=== PATIENT | female | born 1965 | race American Indian/Alaskan Native ===

== ENCOUNTER 2020-01-13 08:54 | Inpatient (IN) | payer MEDICARE, MEDICAID, SELFPAY ==
[2020-01-13] VITALS (8 sets, daily range): BP systolic 139–168; BP diastolic 78–102; PULSE 84–98; RESP 16–18; TEMP 36.4–36.7; O2SAT 94–99; BMI 32.2; BMI 30.4
[2020-01-13 09:10] LABS: Glucose, Whole Blood 313 mg/dL (60-115)
--- NOTE | 2020-01-13 09:18 | XR_ITS ---
EXAMINATION: XR CHEST CLINICAL INFORMATION: Left-sided weakness COMPARISON: 12/11/2016 TECHNIQUE: Frontal view of the chest was obtained. FINDINGS: The cardiomediastinal silhouette is within normal limits. Low lung volumes.. There is no focal consolidation, edema, or effusion. No pneumothorax. No acute osseous abnormality. IMPRESSION: Low lung volumes. No evidence of acute process.
--- NOTE | 2020-01-13 09:18 | MR_ITS ---
EXAMINATION: UNENHANCED MRI OF THE BRAIN. CLINICAL INFORMATION: Left-sided weakness. COMPARISON: CT head 04/25/2016. CT CT head 01/13/2020. TECHNIQUE: Routine unenhanced MRI of the brain. FINDINGS: An 8 mm focus with abnormal decreased diffusion is present posteriorly within the right boo radiata (series 4 image 20). This finding is suspicious for an acute infarct. A 7 mm focus with intrinsic high T1-weighted signal intensity, T2 prolongation and associated peripheral low signal intensity on susceptibility weighted images processed present within the right insular lobe within the posterior right external capsule and adjacent putamen corresponding to an area of vague punctate and curvilinear hyperdensity on the comparison CT of the head. No edema is present in the adjacent brain parenchyma. FLAIR and susceptibility weighted images demonstrate findings suspicious for mild focal subarachnoid hemorrhage and possible adjacent petechial hemorrhage within the posterior right middle frontal lobe (series 8 image 15) along the inferior margin of the lesion identified above suspicious for acute infarct over an 8 mm diameter region. The apparent focal subarachnoid hemorrhage is discontiguous with the 7 mm lesion identified within the right insular lobe but comes within approximately one CM of this region. Susceptibility weighted images demonstrate punctate low signal foci within the parasagittal right parieto-occipital and left parieto-occipital regions (series 5 image 14). Vague rounded low signal focus is present in the peripheral left sublenticular region (series 5 image 13). Nearly confluent patchy T2 hyperintensities are present elsewhere in the supratentorial periventricular white matter. Normal flow-related signal intensity is identified in the major intracranial vessels and dural sinuses. Orbits and globes are normal in appearance. No marrow signal abnormalities are identified. IMPRESSION: 1. 8 mm acute infarct within the posterior right boo radiata. Mild adjacent focal subarachnoid and possible punctate petechial hemorrhage is present and may be secondary to the acute infarct. 2. 7 mm lesion within the right insular lobe with evidence of subacute and possible acute blood products. This finding may represent a cavernous angioma. The acute subarachnoid hemorrhage identified in impression point #1 is discontiguous from this lesion. The differential diagnosis of this lesion include a subacute infarcts with associated subacute blood products. 3. Moderate white matter chronic small vessel ischemic disease and evidence of a small number of punctate foci of chronic hemorrhage elsewhere within the brain. Overall, findings may represent hypertensive related chronic small vessel ischemic disease. This critical result was discussed with Man Mahan MD by telephone at 01/13/2020 11:55 AM and it was ascertained that the content and urgency of the report was understood at the time of direct communication.
--- NOTE | 2020-01-13 09:19 | CT_ITS ---
EXAMINATION: CT HEAD WITHOUT CONTRAST CLINICAL INFORMATION: Left-sided weakness COMPARISON: April 25, 2016 TECHNIQUE: Contiguous axial imaging was performed from the skull base to vertex without intravenous administration of contrast. This CT examination was performed using dose optimization techniques as appropriate, variously including the following: *Automated exposure control *Adjustment of mA and/or kV according to patient size (this includes techniques or standardized protocols for targeted exams where dose is matched to indication/reason for exam; i.e. extremities or head) *Use of iterative reconstruction technique DLP: 483 mGy-cm FINDINGS: There is a region of heterogeneous density portion of which is of diminished density more anteriorly and posteriorly of somewhat more increased density about the posterior aspect mainly white matter of the right frontal lobe extending back to the precentral gyrus. There are a few foci of increased density which may represent petechial hemorrhage. No significant mass effect is appreciated and no midline structure shift is seen. There is some stable periventricular white matter low density as well as what appear to be a stable small right frontal infarct compared to study of April 25, 2016. Cavum septum vergae is noted. Remainder of the ventricular system, sulci, and cisterns appear unremarkable. No abnormal extra-axial fluid collection. The mastoid air cells and visualized portions of the paranasal sinuses are well aerated. IMPRESSION: Right frontal majority white matter abnormality with question of petechial hemorrhage which could represent an involving infarct and somewhat less likely could represent a mass. MRI would be of help in further evaluation. This critical result was discussed with Dr. Mahan at 10:10 AM on January 13, 2020 and it was ascertained that the content and urgency of the report was understood at the time of direct communication.
--- NOTE | 2020-01-13 09:20 | CT_ITS ---
EXAMINATION: CT CERVICAL SPINE WITHOUT CONTRAST CLINICAL INFORMATION: Left-sided weakness. COMPARISON: None TECHNIQUE: Axial imaging. Sagittal and coronal reconstructions. This CT examination was performed using dose optimization techniques as appropriate, variously including the following: *Automated exposure control *Adjustment of mA and/or kV according to patient size (this includes techniques or standardized protocols for targeted exams where dose is matched to indication/reason for exam; i.e. extremities or head) *Use of iterative reconstruction technique DLP: 483 mGy-cm FINDINGS: Normal alignment. Craniocervical, atlantoaxial alignment is maintained. Predens space is maintained. Prevertebral soft tissues within normal limits. Vertebral body heights are maintained. No evidence of acute fracture or compression deformity. Disc spaces are maintained. There is C2-C3 bilateral facet joint arthritis, more prominent on the right. No suspicious findings in the thyroid gland. Subcentimeter lymph nodes in the neck. Lung apices are clear. IMPRESSION: 1. No radiographic evidence of acute fracture. 2. Bilateral C2-C3 facet arthritis, more prominent on the right.
--- NOTE | 2020-01-13 09:21 | ECG_ITS ---
Test Reason : WEAKNESS Blood Pressure : / mmHG Vent. Rate : 080 BPM Atrial Rate : 080 BPM P-R Int : 164 ms QRS Dur : 086 ms QT Int : 386 ms P-R-T Axes : 009 -23 031 degrees QTc Int : 445 ms Normal sinus rhythm Left axis deviation Possible Anterior infarct (cited on or before 11-DEC-2016) Abnormal ECG When compared with ECG of 11-DEC-2016 01:47, QRS axis has changed Referred By: Man Mahan Electronically Signed By:ADONAY ROBERTS MD
--- NOTE | 2020-01-13 09:22 | ED_ITS ---
HPI - Weakness General Chief complaint: Weakness Stated complaint: l side weakness Time Seen by Provider: 01/13/20 09:18 Source: patient and sign language interpreter Mode of arrival: ambulatory Limitations: other ( poor historian.) History of Present Illness HPI Narrative: This is a 54-year-old female Upper Sorbian speaker, presented to the emergency department when she woke up this morning at 07:00 o'clock felt whole left side of her body is numb and weak, patient fell of the bed when she tried to get up, and now she complains of neck pain. Patient emergency department is poor historian appear very anxious despite using sign language interpreter service and efforts from the examiner to ask simple questions. MD Complaint: focal weakness ( Left whole body) and tingling ( the whole left side.) Onset (ago): unknown ( Went to bed okay, woke up this morning with the symptoms.) Duration: constant Location: LUE and LLE Migration: none Severity: mild Quality: tingling Relieving factors: none Exacerbating factors: none Related Data Allergies Allergy/AdvReac Type Severity Reaction Status Date / Time No Known Allergies Allergy Mild NOT Unverified 12/14/19 16:11 APPLICABLE Review of Systems Review of Systems: Yes all other systems are reviewed and are negative Constitutional: Constitutional: Reports other ( Anxious.) Eyes: Eyes: Reports as per HPI ENT: Reports system reviewed and no additional complaints, except as documented Cardiovascular: Cardiovascular: Reports no additional cardiovascular complaints Respiratory: Respiratory: Reports no additional respiratory complaints Gastrointestinal: Gastrointestinal: Reports no additional gastrointestinal complaints Musculoskeletal: Musculoskeletal: Reports muscle weakness ( Left-sided, patient fell when she is trying to get out of bed because she) Neurologic: Reports system reviewed and no additional complaints, except as documented and Reports Abnormal speech present Psychiatric: Psychiatric: Reports no additional psychiatric complaints [facility] Past Medical History Medical History Diabetes mellitus, insulin dependent (IDDM), controlled [place] (hard of hearing) Hypertension Social History Social History Alcohol intake: unknown Smoking Status: Unknown if ever smoked Use of substances other than those prescribed or required for medical reasons: No Advance Directives: No Advance Directives Information Provided: Yes Physical Exam Vital Signs: Vital Signs: Vital Signs Temp Pulse Resp BP Pulse Ox 01/13/20 14:00 98 17 154/87 H 95 01/13/20 13:27 97.6 F 90 18 139/83 96 01/13/20 12:26 91 18 158/92 H 98 01/13/20 11:32 89 16 159/78 H 95 01/13/20 09:01 97.6 F 92 16 168/89 H 94 Body Mass Index 32.2 Const: General: cooperative Orientation/consciousness: oriented to person, oriented to place and oriented to time HENMT: Head: Yes normal to inspection and Yes No palpable skull fracture present Ears: hearing grossly normal bilaterally General nose exam: Normal external nose present Face and sinus: Yes normal facial exam and Yes other ( No facial droop is appreciated.) Mouth: Normal oral and palatal mucosa present Eyes: General: appearance normal, both eyes and all related structures Eyelids: Yes eyelids normal EOM: EOMs intact bilaterally Neck: Neck: Yes normal visual inspection and Yes full ROM Chest: Chest palpation & inspection: normal inspection of the chest Resp: Effort & Inspection: normal respiratory effort Cardio: Jugular venous distension: no JVD Rate: regular rate Rhythm: regular rhythm GI: Inspection: Yes normal to inspection Percussion: Yes normal to percussion Skin: General skin exam: no rashes or lesions noted Neuro: General: oriented to person, oriented to place, oriented to time and Unable to assess gait Cranial nerves: Yes CN's II-XII intact bilaterally and Yes Facial sensation intact/muscles of mastication intact Cognition (Neuro): normal cognition Speech: Abnormal speech present Gait exam (Neuro): Unable to assess gait Motor exam (neuro): Pronator motor function present ( mild left pronator drift.) Sensory Exam: Sensory deficit (Neuro) ( decreased light touch sensation to the left thigh and left lower.) Coordination: [id number] test normal Comatose Patient: corneal reflex present Course Course Course Narrative: 54 years old female appear very anxious patient is poor historian, patient woke up this morning with left side numbness and weakness as a result patient fell after was trying to get out of bed. Due to patient anxiety and poor historian unable to fully evaluate patient for acute stroke, unknown onset of symptoms (patient was sleeping ) MDM - Weakness MDM Narrative Medical decision making narrative: 54 years old female history of diabetes presented with left-sided weakness, unclear onset of symptoms, patient showed small subarachnoid hemorrhage on CT /MRI patient is not candidate for tPA. MRI/CT consistent with right boo radiata acute infarction. as a spiculated by Dr. Juan that patient woke up with left-sided weakness patient stated that she fell when she woke up probably secondary to the weakness then she developed the small subarachnoid hemorrhage CT head is and C-spine unremarkable for fracture. CTA head and neck unremarkable for dissection/aneurysm. The case discussed with Dr. Juan to admit the patient for observation, no NSAIDs because of the bleed. Lab Data Result diagrams: 01/13/20 09:23 01/13/20 09:23 Labs: Lab Results 01/13/20 01/13/20 01/13/20 Range/Units 09:07 09:23 09:23 WBC 8.4 (4.8-10.8) X10*3/uL RBC 5.18 (4.20-5.50) X10*6/uL Hgb 15.7 (12.0-16.0) g/dl Hct 47.4 H (37-47) % MCV 91.5 (80-98) fL MCH 30.3 (27.0-33.0) pg MCHC 33.1 (31.0-35.0) g/dl RDW 11.7 (11.0-16.0) % Plt Count 206 (160-400) X10*3/uL MPV 10.5 (9.4-12.3) fL Absolute Nucleated RBC 0.000 (0.0-0.012) X10*3/uL Nucleated RBC % (auto) 0.0 (0.0-0.2) /100WBC PT (10.8-13.0) SEC INR (0.9-1.1) APTT (24.1-38.0) SEC Sodium 134 L (135-145) mmol/L Potassium 4.2 (3.3-5.1) mmol/l Chloride 97 (96-108) mmol/L Carbon Dioxide 25 (22-29) mmol/L Anion Gap 16 (12-20) BUN 13 (9-16) mg/dL Creatinine 0.78 (0.5-1.4) mg/dL Estim Creat Clear Calc 80.8 Estimated GFR > 60 POC Glucose 313 H (60-115) mg/dL Random Glucose 371 H* (60-115) mg/dL Calcium 8.9 (8.4-10.2) mg/dL Total Bilirubin (0.0-1.0) mg/dL Direct Bilirubin (0.0-0.5) mg/dL AST (5-31) U/L ALT (0-31) U/L Alkaline Phosphatase (39-117) U/L Troponin I High Sens (<3.5-17.0) ng/L Total Protein (6.5-8.0) g/dL Albumin (3.5-5.0) g/dL Lipase (8-78) U/L Urine Color Urine Appearance Urine pH (5.0-8.0) Ur Specific [place] (1.005-1.025) Urine Protein (NEG-TRACE) MG/DL Urine Glucose (UA) (NEG) MG/DL Urine Ketones (NEG) MG/DL Urine Blood (NEG) Urine Nitrite (NEG) Ur Leukocyte Esterase (NEG) Urine RBC (0) /HPF Urine WBC (0-4) /HPF Ur Squamous Epith Cells /LPF Urine Bacteria /LPF 01/13/20 01/13/20 01/13/20 Range/Units 09:23 09:23 09:23 WBC (4.8-10.8) X10*3/uL RBC (4.20-5.50) X10*6/uL Hgb (12.0-16.0) g/dl Hct (37-47) % MCV (80-98) fL MCH (27.0-33.0) pg MCHC (31.0-35.0) g/dl RDW (11.0-16.0) % Plt Count (160-400) X10*3/uL MPV (9.4-12.3) fL Absolute Nucleated RBC (0.0-0.012) X10*3/uL Nucleated RBC % (auto) (0.0-0.2) /100WBC PT 12.9 (10.8-13.0) SEC INR 1.1 (0.9-1.1) APTT 40.9 H (24.1-38.0) SEC Sodium (135-145) mmol/L Potassium (3.3-5.1) mmol/l Chloride (96-108) mmol/L Carbon Dioxide (22-29) mmol/L Anion Gap (12-20) BUN (9-16) mg/dL Creatinine (0.5-1.4) mg/dL Estim Creat Clear Calc Estimated GFR POC Glucose (60-115) mg/dL Random Glucose (60-115) mg/dL Calcium (8.4-10.2) mg/dL Total Bilirubin 2.2 H (0.0-1.0) mg/dL Direct Bilirubin 0.6 H (0.0-0.5) mg/dL AST 53 H (5-31) U/L ALT 71 H (0-31) U/L Alkaline Phosphatase 108 (39-117) U/L Troponin I High Sens 3.9 (<3.5-17.0) ng/L Total Protein 7.3 (6.5-8.0) g/dL Albumin 4.0 (3.5-5.0) g/dL Lipase 12 (8-78) U/L Urine Color Urine Appearance Urine pH (5.0-8.0) Ur Specific [place] (1.005-1.025) Urine Protein (NEG-TRACE) MG/DL Urine Glucose (UA) (NEG) MG/DL Urine Ketones (NEG) MG/DL Urine Blood (NEG) Urine Nitrite (NEG) Ur Leukocyte Esterase (NEG) Urine RBC (0) /HPF Urine WBC (0-4) /HPF Ur Squamous Epith Cells /LPF Urine Bacteria /LPF 01/13/20 Range/Units 10:33 WBC (4.8-10.8) X10*3/uL RBC (4.20-5.50) X10*6/uL Hgb (12.0-16.0) g/dl Hct (37-47) % MCV (80-98) fL MCH (27.0-33.0) pg MCHC (31.0-35.0) g/dl RDW (11.0-16.0) % Plt Count (160-400) X10*3/uL MPV (9.4-12.3) fL Absolute Nucleated RBC (0.0-0.012) X10*3/uL Nucleated RBC % (auto) (0.0-0.2) /100WBC PT (10.8-13.0) SEC INR (0.9-1.1) APTT (24.1-38.0) SEC Sodium (135-145) mmol/L Potassium (3.3-5.1) mmol/l Chloride (96-108) mmol/L Carbon Dioxide (22-29) mmol/L Anion Gap (12-20) BUN (9-16) mg/dL Creatinine (0.5-1.4) mg/dL Estim Creat Clear Calc Estimated GFR POC Glucose (60-115) mg/dL Random Glucose (60-115) mg/dL Calcium (8.4-10.2) mg/dL Total Bilirubin (0.0-1.0) mg/dL Direct Bilirubin (0.0-0.5) mg/dL AST (5-31) U/L ALT (0-31) U/L Alkaline Phosphatase (39-117) U/L Troponin I High Sens (<3.5-17.0) ng/L Total Protein (6.5-8.0) g/dL Albumin (3.5-5.0) g/dL Lipase (8-78) U/L Urine Color YELLOW Urine Appearance CLOUDY Urine pH 6.0 (5.0-8.0) Ur Specific [place] 1.015 (1.005-1.025) Urine Protein NEG (NEG-TRACE) MG/DL Urine Glucose (UA) 500 H (NEG) MG/DL Urine Ketones 5 (NEG) MG/DL Urine Blood NEG (NEG) Urine Nitrite POS H (NEG) Ur Leukocyte Esterase NEG (NEG) Urine RBC 0 (0) /HPF Urine WBC 5-9 H (0-4) /HPF Ur Squamous Epith Cells 2+ /LPF Urine Bacteria 4+ /LPF ECG Data Attestation: I personally reviewed and interpreted this ECG as follows: Interpretation: Normal sinus rhythm at 80 beats per minutes, left axis deviation, no ST- T ischemic change. Scores AUDIT-C 3. How often do you have six or more drinks on one occasion?: Daily or almost daily AUDIT-C Alcohol total score: 4 Additional Scores nihs score: Score: NIHS score is 2 Critical Care Time Critical Care Time Total Critical Care Time: 60 Attestation: Patient required 60 minutes of critical care level at bedside, continuous vital signs monitoring, reviewing CTs/MRI, discussing the case with Neurology, discuss the case with the family and the patient. Discharge Plan Discharge Clinical Impression: Stroke, Subarachnoid hemorrhage following injury Patient Disposition: Admitted As Inpatient
[2020-01-13 09:32] LABS: Hematocrit 47.4 % (37-47); Hemoglobin 15.7 g/dl (12.0-16.0); Mean Corpuscular HGB Conc 33.1 g/dl (31.0-35.0); Mean Corpuscular Hemoglobin 30.3 pg (27.0-33.0); Mean Corpuscular Volume 91.5 fL (80-98); Mean Platelet Volume 10.5 fL (9.4-12.3); Platelet Count 206 X10*3/uL (160-400); Red Blood Count 5.18 X10*6/uL (4.20-5.50); Red Cell Distribution Width 11.7 % (11.0-16.0); White Blood Count 8.4 X10*3/uL (4.8-10.8)
[2020-01-13 09:37] LABS: INTERNATIONAL NORM RATIO 1.1 (0.9-1.1); Prothrombin Time 12.9 SEC (10.8-13.0)
[2020-01-13 09:39] LABS: Partial Thromboplastin Time 40.9 SEC (24.1-38.0)
[2020-01-13] MEDS: LORazepam 1 MG TABLET PO (09:39)
[2020-01-13 10:12] LABS: Alanine Aminotransferase 71 U/L (0-31); Alkaline Phosphatase 108 U/L (39-117); Aspartate Amino Transferase 53 U/L (5-31); Bilirubin Direct 0.6 mg/dL (0.0-0.5); Bilirubin Total 2.2 mg/dL (0.0-1.0); Lipase 12 U/L (8-78); Total Protein 7.3 g/dL (6.5-8.0); Troponin-I High Sensitivity 3.9 ng/L (<3.5-17.0)
[2020-01-13 10:39] LABS: Glucose Urine UA 500 MG/DL (NEG); Leukocyte Esterase Urine NEG (NEG); Nitrite Urine POS (NEG); Specific Gravity - Urine 1.015 (1.005-1.025); Urine Blood NEG (NEG); Urine Ketones 5 MG/DL (NEG); Urine Protein NEG (NEG-TRACE)
[2020-01-13 10:41] LABS: Appearance Urine CLOUDY; Color Urine YELLOW
--- NOTE | 2020-01-13 10:50 | PC.NURSE ---
per md patient is ok to go off floor at mri without monitor.
[2020-01-13 10:52] LABS: Bacteria Urine 4+ /LPF; RBC Urine 0 /HPF (0); Squamous Epithelial Cell Urine 2+ /LPF
[2020-01-13 11:49] LABS: Anion Gap 16 (12-20); Blood Urea Nitrogen 13 mg/dL (9-16); Calcium 8.9 mg/dL (8.4-10.2); Carbon Dioxide 25 mmol/L (22-29); Chloride 97 mmol/L (96-108); Creatinine Clr Calc Pharmacy 80.8; Estimated Glomerular Filt Rate > 60; Glucose Random 371 mg/dL (60-115); Potassium 4.2 mmol/l (3.3-5.1); Sodium 134 mmol/L (135-145)
[2020-01-13] MEDS: Morphine Sulfate 2 MG/ML CARTRIDGE 1 MG IVPUSH (12:30)
--- NOTE | 2020-01-13 13:17 | CT_ITS ---
EXAMINATION: CT ANGIOGRAM NECK WITH CONTRAST CT ANGIOGRAM BRAIN WITH CONTRAST CLINICAL INFORMATION: Stroke like symptoms. Neck pain. Rule out vertebral artery dissection. COMPARISON: Head CT and brain MRI performed earlier the same day. TECHNIQUE: Test bolus sequences followed by intravenous administration 70 mL of Omnipaque 350. Helical imaging was performed in the axial plane from the thoracic inlet to the skull vertex. Delayed postcontrast imaging of the head was also performed. The data was processed at the radiologic technologist workstation for generation of MIP sequences. Angled MIPs and volume rendered reformatted images were also generated at an offline 3D workstation under concurrent supervision. Stenoses are assessed in accordance with NASCET criteria unless otherwise indicated. This CT examination was performed using dose optimization techniques as appropriate, variously including the following: *Automated exposure control *Adjustment of mA and/or kV according to patient size (this includes techniques or standardized protocols for targeted exams where dose is matched to indication/reason for exam; i.e. extremities or head) *Use of iterative reconstruction technique FINDINGS: BRAIN: [A few small acute infarcts involving the right boo radiata and right putamen are again noted. Associated petechial hemorrhage within the posterior right putamen is better demonstrated on the previous MRI of the brain. Acute subarachnoid hemorrhage within the posterior aspect of the right sylvian fissure is better demonstrated on the previous noncontrast head CT. The basilar cisterns are preserved. No significant soft tissue abnormality. No acute osseous abnormality. The paranasal sinuses and the mastoid air cells are well aerated.] CERVICAL SOFT TISSUES AND LUNG APICES: [There is advanced facet arthropathy bilaterally at C2-C3 with associated slight anterior subluxation. No significant soft tissue findings. NECK CTA: [There is a classic 3 vessel configuration of the aortic arch. Proximal arch vessels are non-stenotic. The vertebral arteries are codominant. No significant ostial stenosis is visualized on either side. Both vertebral arteries are widely patent throughout their extracranial cervical course. Both common and internal carotid arteries are normal in course and caliber.] BRAIN CTA: [There is normal opacification of major intracranial arteries. No focal flow-limiting stenosis nor discrete proximal large artery occlusion. No aneurysm. Timing of the contrast bolus allows assessment of the major dural venous sinuses, which all opacify normally] IMPRESSION: [- A few small acute infarcts involving the right boo radiata and right putamen are again noted. Associated petechial hemorrhage within the posterior right putamen is better demonstrated on the previous MRI of the brain. Acute subarachnoid hemorrhage concentrated within the posterior aspect of the right sylvian fissure is better demonstrated on the previous noncontrast head CT. - No acute arterial occlusions and no significant arterial stenoses within the head or neck. No aneurysms. Findings discussed with Dr. Mahan at 2:56 PM on 01/13/2020.
[2020-01-13] MEDS: iohexoL 350 MG/ML 100 ML INFUS..BTL IV (14:37)
--- NOTE | 2020-01-13 17:00 | PM.EVENT ---
Event Note Event Note: addendum to history and physical by ADITYA Caraballo I interviewed and examined the patient. I discussed their presentation and management with the mid-level provider. I reviewed the history and physical and agree with the documentation, with the following additions and corrections: History taken in [place] from the patient. she is hearing impaired but can read lips. 54yo F, PCP Dr Carlin at [facility] History of DM2 and HTN No prior CA or CVA Woke up this morning with LUE and LLE weakness. Tried to get up and fell to ground C/o posterior headache, R>L. No facial droop and no swallowing problems. MRI brain showed 8 mm acute infarct in posterior R obo radiata with mild adjacent SAH, possible punctate petechial hemorrhage. No large vessel occlusion on CTA. Neurology was consulted urgently from the emergency department. Not a tPA candidate due to unknown time of onset of stroke symptoms Vitals notable for BP 154/87 Neuro exam with 2/5 strength LLE, 3/5 strength LUE. No facial droop. Impression of acute CVA complicated by SAH, either traumatic or hemorrhagic conversion Admit to [facility] Continuous telemetry TTE Neuro consult high-intensity statin avoid antiplatelet agent for now per Neuro no repeat imaging indicated if clinically stable. 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
--- NOTE | 2020-01-13 17:39 | P.HPIM_ITS ---
History of Present Illness Date of Service: 01/13/20 <ADITYA Morse - Last Filed: 01/13/20 18:46> Chief Complaint: left-sided weakness <ADITYA Morse - Last Filed: 01/13/20 18:46> this is a 54-year-old female who presented to the emergency department today with left-sided weakness. Patient states she woke up this morning and fell to the ground because she was unable to ambulate. She was unable to move her left side. She continued to have weakness of her left upper and lower extremity on presentation to the emergency department. she underwent brain CT which was abnormal so a brain MRI was obtained. This revealed an 8 mm acute infarct within the posterior right boo radiata with mild adjacent focal subarachnoid and possible punctate petechial hemorrhage. head and neck CTA did not show any large vessel occlusion. Given that the patient woke up with her symptoms the time of onset was unknown and she was not a candidate for tPA. <ADITYA Morse - Last Filed: 01/13/20 18:46> Review of Systems Review of Systems: Yes all other systems are reviewed and are negative <ADITYA Morse Last Filed: 01/13/20 18:46> Cardiovascular: Cardiovascular: Denies chest pain <ADITYA Morse Last Filed: 01/13/20 18:46> Genitourinary: Genitourinary: Denies dysuria <ADITYA Morse Last Filed: 01/13/20 18:46> Neurologic: Reports focal weakness <ADITYA Morse Last Filed: 01/13/20 18:46> [facility] Medical History: Medical History Diabetes [place] (hard of hearing) Hypertension <ADITYA Morse Last Filed: 01/13/20 18:46> Pertinent family history: heart disease <ADITYA Morse Last Filed: 01/13/20 18:46> Social History: Social History (Updated 01/13/20 @ 17:47 by ADITYA Morse) Household Members: Spouse Housing: House Do you presently have visiting nurse or other home services: No Alcohol intake: never Smoking Status: Never smoker Use of substances other than those prescribed or required for medical reasons: No Currently Displaying Signs/Symptoms of Drug Intoxication Withdrawal: No Have you been hit, kicked, punched, or otherwise hurt by someone within the past year? If so, by whom?: No Do you feel safe in your current relationship?: Yes Is there a partner from a previous relationship who is making you feel unsafe now?: No Are you made to feel afraid or neglected: No Advance Directives: No Advance Directives Information Provided: Yes Do you have thoughts of harming others: None Do you have a plan to hurt others: No Plan Recently lost weight without trying: No <ADITYA Morse - Last Filed: 01/13/20 18:46> Meds Allergies/Adverse reactions: Allergies Allergy/AdvReac Type Severity Reaction Status Date / Time No Known Allergies Allergy Mild NOT Verified 01/13/20 21:43 APPLICABLE <ADITYA Morse - Last Filed: 01/13/20 18:46> Home medications: Home Medications Medication Instructions Recorded Confirmed Type glipizide 1 tab PO BID 01/13/20 01/13/20 History hydrochlorothiazide 1 tab PO DAILY 01/13/20 01/13/20 History losartan 1 tab PO DAILY 01/13/20 01/13/20 History metformin 1 tab PO BID 01/13/20 01/13/20 History metronidazole 1 tab PO BID 01/13/20 01/13/20 History pravastatin tab PO 01/13/20 History <ADITYA Morse - Last Filed: 01/13/20 18:46> Physical Exam Vital Signs and Narrative: Vital Signs: Last Vital Signs Temp 97.6 F 01/13/20 13:27 Pulse 98 01/13/20 14:00 Resp 17 01/13/20 14:00 BP 154/87 H 01/13/20 14:00 Pulse Ox 95 01/13/20 14:00 Body Mass Index 32.2 <ADITYA Morse - Last Filed: 01/13/20 18:46> Const: Nutritional Appearance: well nourished <ADITYA Morse - Last Filed: 01/13/20 18:46> Orientation/consciousness: patient oriented x3 <ADITYA Morse Last Filed: 01/13/20 18:46> HENMT: Head: Yes normocephalic and Yes atraumatic <ADITYA Morse - Last Filed: 01/13/20 18:46> Eyes: Sclerae: sclerae normal <ADITYA Morse - Last Filed: 01/13/20 18:46> Pupils: Equal, round and reactive pupils present <ADITYA Morse - Last Filed: 01/13/20 18:46> Chest: Chest palpation & inspection: normal inspection of the chest <ADITYA Morse - Last Filed: 01/13/20 18:46> Resp: Effort & Inspection: normal respiratory effort and no respiratory distress <ADITYA Morse - Last Filed: 01/13/20 18:46> Auscultation: clear to auscultation bilaterally <ADITYA Morse - Last Filed: 01/13/20 18:46> Cardio: Rate: regular rate <ADITYA Morse - Last Filed: 01/13/20 18:46> Rhythm: regular rhythm <ADITYA Morse - Last Filed: 01/13/20 18:46> GI: Palpation (GI): Soft to palpation and nontender <ADITYA Morse - Last Filed: 01/13/20 18:46> Skin: General skin exam: no rashes or lesions noted <ADITYA Morse - Last Filed: 01/13/20 18:46> Neuro: General: patient oriented x3 <ADITYA Morse - Last Filed: 01/13/20 18:46> Cranial nerves: Yes CN's II-XII intact bilaterally, Yes Equal, round and reactive pupils present, Yes Bilaterally intact EOM present, Yes Midline tongue present and Yes Ability to bilaterally elevate shoulders present <ADITYA Morse - Last Filed: 01/13/20 18:46> Motor exam (neuro): Abnormal motor strength present (2/5 strength left upper and lower exremities) <ADITYA Morse - Last Filed: 01/13/20 18:46> Extrem: General: Yes normal to inspection <ADITYA Morse - Last Filed: 01/13/20 18:46> Results Labs Labs: Laboratory Tests 01/13/20 01/13/20 01/13/20 09:07 09:23 09:23 WBC 8.4 RBC 5.18 Hgb 15.7 Hct 47.4 H MCV 91.5 MCH 30.3 MCHC 33.1 RDW 11.7 Plt Count 206 MPV 10.5 Absolute Nucleated RBC 0.000 Nucleated RBC % (auto) 0.0 PT INR APTT Sodium 134 L Potassium 4.2 Chloride 97 Carbon Dioxide 25 Anion Gap 16 BUN 13 Creatinine 0.78 Estim Creat Clear Calc 80.8 Estimated GFR > 60 POC Glucose 313 H Random Glucose 371 H* Calcium 8.9 Total Bilirubin Direct Bilirubin AST ALT Alkaline Phosphatase Troponin I High Sens Total Protein Albumin Lipase Urine Color Urine Appearance Urine pH Ur Specific [place] Urine Protein Urine Glucose (UA) Urine Ketones Urine Blood Urine Nitrite Ur Leukocyte Esterase Urine RBC Urine WBC Ur Squamous Epith Cells Urine Bacteria 01/13/20 01/13/20 01/13/20 09:23 09:23 09:23 WBC RBC Hgb Hct MCV MCH MCHC RDW Plt Count MPV Absolute Nucleated RBC Nucleated RBC % (auto) PT 12.9 INR 1.1 APTT 40.9 H Sodium Potassium Chloride Carbon Dioxide Anion Gap BUN Creatinine Estim Creat Clear Calc Estimated GFR POC Glucose Random Glucose Calcium Total Bilirubin 2.2 H Direct Bilirubin 0.6 H AST 53 H ALT 71 H Alkaline Phosphatase 108 Troponin I High Sens 3.9 Total Protein 7.3 Albumin 4.0 Lipase 12 Urine Color Urine Appearance Urine pH Ur Specific [place] Urine Protein Urine Glucose (UA) Urine Ketones Urine Blood Urine Nitrite Ur Leukocyte Esterase Urine RBC Urine WBC Ur Squamous Epith Cells Urine Bacteria 01/13/20 10:33 WBC RBC Hgb Hct MCV MCH MCHC RDW Plt Count MPV Absolute Nucleated RBC Nucleated RBC % (auto) PT INR APTT Sodium Potassium Chloride Carbon Dioxide Anion Gap BUN Creatinine Estim Creat Clear Calc Estimated GFR POC Glucose Random Glucose Calcium Total Bilirubin Direct Bilirubin AST ALT Alkaline Phosphatase Troponin I High Sens Total Protein Albumin Lipase Urine Color YELLOW Urine Appearance CLOUDY Urine pH 6.0 Ur Specific [place] 1.015 Urine Protein NEG Urine Glucose (UA) 500 H Urine Ketones 5 Urine Blood NEG Urine Nitrite POS H Ur Leukocyte Esterase NEG Urine RBC 0 Urine WBC 5-9 H Ur Squamous Epith Cells 2+ Urine Bacteria 4+ <ADITYA Morse - Last Filed: 01/13/20 18:46> Assessment and Plan (1) Stroke: Status: Acute <ADITYA Morse - Last Filed: 01/13/20 18:46> this is a 54-year-old female with hypertension, diabetes who prese nts to the emergency department after waking up with left-sided weakness Found to have acute stroke acute stroke with hemorrhagic conversion ongoing left-sided weakness. time of onset unknown, not a tPA candidate - IMC for close monitoring, telemetry, neuro checks - high-intensity statin - Neurology consult - PT, OT, speech evaluation - hold off on antiplatelet therapy - hold BP medication diabetes, uncontrolled -Hold metformin, glipizide -SSI, POCs, ADA diet HTN - losartan, HCTZ on hold elevated LFTs no abdominal pain -will trend -continue statin for now given acute stroke DVT ppx - boots Code status - full code this case was discussed with Dr. Garsia <ADITYA Morse - Last Filed: 01/13/20 18:46>
[2020-01-13 18:40] LABS: Estimated Average Glucose 341 mg/dL; Hemoglobin A1c % 13.5 %
[2020-01-13 19:26] LABS: Glucose, Whole Blood 231 mg/dL (60-115)
[2020-01-13] MEDS: Atorvastatin Calcium 80 MG TABLET PO (20:35)
[2020-01-13] MEDS: Acetaminophen 325 MG TABLET 650 MG PO (20:35)
[2020-01-13 20:44] LABS: Glucose, Whole Blood 237 mg/dL (60-115)
[2020-01-13] MEDS: Insulin Lispro 100 UNIT/ML 3 ML VIAL SUBCUT (20:52)
[2020-01-13] MEDS: 0.9 % Sodium Chloride Flush 3 ML SYRINGE IVFLUSH (20:52)
[2020-01-14] VITALS (9 sets, daily range): BP systolic 127–178; BP diastolic 81–99; PULSE 82–92; RESP 18; TEMP 36.1–36.7; O2SAT 95–97
[2020-01-14 06:26] LABS: MANUAL DIFF FLAG NO
[2020-01-14 06:46] LABS: Basophils Percent Auto 0.5 % (0-2); Eosinophils Absolute Auto 0.2 X10*3/uL (0.0-0.4); Eosinophils Percent Auto 2.4 % (0-4); Hematocrit 45.1 % (37-47); Hemoglobin 15.2 g/dl (12.0-16.0); Imm Gran Abs Auto 0.03 X10*3/uL (0.00-0.03); Imm Gran Pct Auto 0.4 % (0.0-0.4); Lymphocytes Percent Auto 35.6 % (20-40); Mean Corpuscular HGB Conc 33.7 g/dl (31.0-35.0); Mean Corpuscular Hemoglobin 30.9 pg (27.0-33.0); Mean Corpuscular Volume 91.7 fL (80-98); Mean Platelet Volume 10.6 fL (9.4-12.3); Monocytes Absolute Auto 0.6 X10*3/uL (0.1-1.2); Monocytes Percent Auto 7.3 % (2-11); Neutrophils Absolute Auto 4.6 X10*3/uL (2.0-8.3); Neutrophils Percent Auto 53.8 % (45-73); Platelet Count 210 X10*3/uL (160-400); Red Blood Count 4.92 X10*6/uL (4.20-5.50); Red Cell Distribution Width 11.7 % (11.0-16.0); White Blood Count 8.5 X10*3/uL (4.8-10.8)
[2020-01-14 07:22] LABS: Alanine Aminotransferase 63 U/L (0-31); Albumin Level 3.6 g/dL (3.5-5.0); Alkaline Phosphatase 94 U/L (39-117); Anion Gap 12 (12-20); Aspartate Amino Transferase 44 U/L (5-31); Bilirubin Direct 0.5 mg/dL (0.0-0.5); Bilirubin Total 1.3 mg/dL (0.0-1.0); Blood Urea Nitrogen 14 mg/dL (9-16); Calcium 8.5 mg/dL (8.4-10.2); Carbon Dioxide 26 mmol/L (22-29); Chloride 101 mmol/L (96-108); Creatinine Clr Calc Pharmacy 82.6; Estimated Glomerular Filt Rate > 60; Glucose Random 353 mg/dL (60-115); Potassium 4.3 mmol/l (3.3-5.1); Sodium 135 mmol/L (135-145); Total Protein 6.6 g/dL (6.5-8.0)
[2020-01-14 07:23] LABS: Glucose, Whole Blood 342 mg/dL (60-115)
[2020-01-14] MEDS: Atorvastatin Calcium 80 MG TABLET PO (08:15)
[2020-01-14] MEDS: Acetaminophen 325 MG TABLET 650 MG PO (08:15)
[2020-01-14] MEDS: Insulin Glargine,Hum.rec.anlog 100 UNIT/ML 10 ML VIAL 20 UNIT SUBCUT (08:17)
[2020-01-14] MEDS: Insulin Lispro 100 UNIT/ML 3 ML VIAL SUBCUT ×4 (08:17→21:48)
[2020-01-14] MEDS: 0.9 % Sodium Chloride Flush 3 ML SYRINGE IVFLUSH ×2 (08:18→16:58)
--- NOTE | 2020-01-14 09:33 | P.CNNE_ITS ---
History of Present Illness Data of Consult Primary Care Provider: Cara Carlin MD 54 years old woman with past medical history of hypertension who came to hospital yesterday with new onset of left-sided weakness. She developed this weakness few hours before she came to hospital but, probably because of this weakness, she fell down and hit her head. In emergency room she was evaluated for acute stroke and was noted to have an acute right hemispheric lesion with pes mild subarachnoid bleed. A CTA was also done to rule out aneurysm or significant stenosis, which did not reveal any significant lesion. This morning she was feeling better though complaining of some right occipital headache. There was no complaint of any nausea or vomiting or speech or language difficulty. There was no history of seizure. Review of Systems Review of Systems: General: no loss of weight, or fever Neuro: Right occipital headache Psych: no active issues reported Heart: no SOB or chest pain Lungs: no cough or SOB Extremiteis: no edema Musculoskeletal: no joint pains Sleep: no sleep issues reported skin: no rashes ENT: no URI symptoms Neck: no neck pain Neurologic: Reports system reviewed and no additional complaints, except as documented, Reports Abnormal speech present, Reports focal weakness and Reports Sensory deficit (Neuro) ( decreased light touch sensation to the left thigh and left lower.) [facility] Past Medical History Medical History Diabetes [place] (hard of hearing) Hypertension Social History Social History (Updated 01/13/20 @ 17:47 by ADITYA Morse) Household Members: Spouse Housing: House Do you presently have visiting nurse or other home services: No Alcohol intake: never Smoking Status: Never smoker Use of substances other than those prescribed or required for medical reasons: No Currently Displaying Signs/Symptoms of Drug Intoxication Withdrawal: No Have you been hit, kicked, punched, or otherwise hurt by someone within the past year? If so, by whom?: No Do you feel safe in your current relationship?: Yes Is there a partner from a previous relationship who is making you feel unsafe no w?: No Are you made to feel afraid or neglected: No Advance Directives: No Advance Directives Information Provided: Yes Do you have thoughts of harming others: None Do you have a plan to hurt others: No Plan Recently lost weight without trying: No Meds Allergies Allergy/AdvReac Type Severity Reaction Status Date / Time No Known Allergies Allergy Mild NOT Verified 01/13/20 21:43 APPLICABLE Home Medications Medication Instructions Recorded Confirmed Type glipizide 1 tab PO BID 01/13/20 01/13/20 History hydrochlorothiazide 1 tab PO DAILY 01/13/20 01/13/20 History losartan 1 tab PO DAILY 01/13/20 01/13/20 History metformin 1 tab PO BID 01/13/20 01/13/20 History metronidazole 1 tab PO BID 01/13/20 01/13/20 History pravastatin tab PO 01/13/20 History Physical Exam Vital Signs: Vital Signs: Vital Signs Temp Pulse Resp BP Pulse Ox 01/14/20 07:14 98.0 F 88 18 127/99 H 95 01/14/20 05:50 97.7 F 92 18 157/89 H 97 01/14/20 04:00 98.0 F 82 18 149/89 H 97 01/14/20 02:00 97.7 F 89 18 143/88 H 97 01/14/20 00:00 98.0 F 84 18 158/91 H 96 01/13/20 23:58 98.0 F 84 18 158/91 H 96 01/13/20 21:54 91 148/80 H 01/13/20 19:04 97.6 F 90 18 159/102 H 99 01/13/20 14:00 98 17 154/87 H 95 01/13/20 13:27 97.6 F 90 18 139/83 96 01/13/20 12:26 91 18 158/92 H 98 01/13/20 11:32 89 16 159/78 H 95 Body Mass Index 30.4 Mental status examination: Normal attention, orientation, memory and affect Cranial Nerve examination: Pupils are equal, round and reactive to light. External ocular muscles are intact. Visual mcbride are full. Face is symmetrical. Facial sensations are normal. Tongue is midline. Palate elevates symmetrically. Shoulder shrugging is normal. Hearing to bedside conversation is normal. Motor examination: mild left arm and leg weakness that was more in arms and le gs. Deep tendon reflexes were trace with flexor plantars. Sensory examination: Normal light touch, pain, vibration and joint position senses. Cerebellar examination: Finger to nose is normal. Speech: Normal. Extrapyramidal system: Within normal limits. Involuntary movements: None. Neuro: Speech: Abnormal speech present Sensory Exam: Sensory deficit (Neuro) ( decreased light touch sensation to the left thigh and left lower.) Results Labs CBC & Chem 7: 01/14/20 06:03 01/14/20 06:03 Labs: Short CBC 01/13/20 01/14/20 Range/Units 09:23 06:03 WBC 8.4 8.5 (4.8-10.8) X10*3/uL Hgb 15.7 15.2 (12.0-16.0) g/dl Hct 47.4 H 45.1 (37-47) % Plt Count 206 210 (160-400) X10*3/uL BMP 01/13/20 01/14/20 09:23 06:03 Sodium 134 L 135 Potassium 4.2 4.3 Chloride 97 101 Carbon Dioxide 25 26 BUN 13 14 Creatinine 0.78 0.74 Calcium 8.9 8.5 Liver Function 01/13/20 01/14/20 Range/Units 09:23 06:03 Total Bilirubin 2.2 H 1.3 H (0.0-1.0) mg/dL Direct Bilirubin 0.6 H 0.5 (0.0-0.5) mg/dL AST 53 H 44 H (5-31) U/L ALT 71 H 63 H (0-31) U/L Alkaline Phosphatase 108 94 (39-117) U/L Albumin 4.0 3.6 (3.5-5.0) g/dL Urine 01/13/20 Range/Units 10:33 Urine Color YELLOW Urine Appearance CLOUDY Urine pH 6.0 (5.0-8.0) Ur Specific [place] 1.015 (1.005-1.025) Urine Protein NEG (NEG-TRACE) MG/DL Urine Glucose (UA) 500 H (NEG) MG/DL Microbiology Microbiology Results: Microbiology 01/13/20 10:32 Urine clean catch - Clean Catch Midstream Urine Culture - Preliminary Gram negative shayy Her CT scan and MRI brain were reviewed. MRI of brain revealed moderately severe chronic ischemic lesions probably from atherothrombotic disease. There was an acute right boo radiata lesion with the restricted diffusion and hyperintensity on FLAIR but also evidence of mild subarachnoid bleed around it. CTA did not reveal any significant lesion. Assessment and Plan (1) Subarachnoid hemorrhage following injury: Status: Acute Mild traumatic subarachnoid hemorrhage that does not require any further intervention at this time. (2) Stroke: Status: Acute acute right subcortical small ischemic infarction with underlying multiple chronic similar ischemic infarctions. Mainstay of management is blood pressure control, statin and anti-platelet agent. Because of subarachnoid hemorrhage, anti-platelet agent was not given but can be started tomorrow with baby aspirin daily.
[2020-01-14] MEDS: HYDROcodone Bit/Acetam 5/325 TABLET 1 TAB PO (10:00)
[2020-01-14 11:31] LABS: Glucose, Whole Blood 365 mg/dL (60-115)
--- NOTE | 2020-01-14 11:46 | MHC.STROKE ---
PATIENT ARRIVED TO [facility] ED WALK-IN 01/13/20 AT 0854. LKW 01/12/201999 PRIOR TO GOING TO BED. EXCLUDED FROM TPA: SAH FALL AND OUT OF THE WINDOW FOR TPA. REVIEWED DR WILL NOTE NIHSS=2, ESTIMATED FROM HIS EXAM. IT WAS DOCUMENTED NIHSS = [address] MORELAND IN ED UPON ARRIVAL ALSO. SHE PASSED SWALLOW SCREEN, PLEASE ADDRESS ALL ELEMENTS OF STROKE EDUCATION. I WILL REINFORCE THE STROKE EDUCATION ON 01/15/20.
--- NOTE | 2020-01-14 12:00 | P.PNIM_ITS ---
Subjective Subjective Date of Service: 01/14/20 Interval History: History from patient in [place] [she is hearing-impaired but reads lips] and her C/o posterior EVANS Denies N/V Ongoing LLE weakness and LUE weakness No chest pain Review of Systems as per HPI Physical Exam Vital Signs: Vital Signs: Vital Signs Temp Pulse Resp BP Pulse Ox 01/14/20 11:28 98.0 F 90 18 154/84 H 97 01/14/20 07:14 98.0 F 88 18 127/99 H 95 01/14/20 05:50 97.7 F 92 18 157/89 H 97 01/14/20 04:00 98.0 F 82 18 149/89 H 97 01/14/20 02:00 97.7 F 89 18 143/88 H 97 01/14/20 00:00 98.0 F 84 18 158/91 H 96 01/13/20 23:58 98.0 F 84 18 158/91 H 96 01/13/20 21:54 91 148/80 H 01/13/20 19:04 97.6 F 90 18 159/102 H 99 01/13/20 14:00 98 17 154/87 H 95 01/13/20 13:27 97.6 F 90 18 139/83 96 01/13/20 12:26 91 18 158/92 H 98 Body Mass Index 30.4 Const: General: healthy appearing and well developed; No acute distress Orientation/consciousness: patient oriented x3 HENMT: Other: Hearing impaired, has amplification devices Head: Yes normal to inspection Ears: hearing grossly normal bilaterally Neck: Neck: Yes supple Chest: Chest palpation & inspection: normal inspection of the chest Resp: Effort & Inspection: normal respiratory effort Auscultation: clear to auscultation bilaterally Cardio: Rate: regular rate Rhythm: regular rhythm Heart sounds: no murmurs GI: Inspection: Yes normal to inspection Palpation (GI): Soft to palpation and nontender Neuro: General: patient oriented x3 Motor exam (neuro): Other motor observations present (2/5 strength LLE, 3/5 in the LUE with marked pronator drift) Objective Data Current Medications Generic Name Dose Route Start Last Admin Trade Name Freq PRN Reason Stop Dose Admin Acetaminophen 650 mg 01/13/20 19:01 01/14/20 08:15 Acetaminophen 325 Mg Tablet PO 650 mg Q6H PRN Administration Pain, Mild (Pain Scale 1-3) Hydrocodone Bitart/Acetaminophen 1 tab 01/14/20 09:41 01/14/20 10:00 Hydrocodone Bit/Acetam 5/325 Tablet PO 1 tab Q4H PRN Administration severe headache Atorvastatin Calcium 80 mg 01/13/20 21:00 01/14/20 08:15 Atorvastatin Calcium 80 Mg Tablet PO 80 mg DAILY BOBO Administration Docusate Sodium 100 mg 01/13/20 19:01 Docusate Sodium 100 Mg Capsule PO DAILY PRN Constipation Insulin Glargine 20 unit 01/14/20 09:00 01/14/20 08:17 Insulin Glargine,Hum.Rec.Anlog 100 Unit/Ml 10 Ml Vial SUBCUT 20 unit DAILY BOBO Administration Insulin Human Lispro 0 unit 01/13/20 21:00 01/14/20 08:17 Insulin Lispro 100 Unit/Ml 3 Ml Vial SUBCUT 01/14/20 17:07 10 unit QIDACHS BOBO Administration Protocol Ondansetron HCl 4 mg 01/13/20 19:01 Ondansetron Hcl 4 Mg/2 Ml Vial IVPUSH Q8H PRN Nausea and Vomiting Pharmacy Consult 1 each 01/13/20 16:07 Consult Rx Perform Med Rec MISCELLANE ONCE PRN Consult order Sodium Chloride 3 ml 01/14/20 00:00 01/14/20 08:18 0.9 % Sodium Chloride Flush 3 Ml Syringe IVFLUSH 3 ml QSHIFT [facility] Administration Labs CBC & Chem 7: 01/14/20 06:03 01/14/20 06:03 Microbiology Microbiology Results: Microbiology 01/13/20 10:32 Urine clean catch - Clean Catch Midstream Urine Culture - Preliminary Gram negative shayy Assessment and Plan (1) Stroke: Status: Acute (2) Subarachnoid hemorrhage following injury: Status: Acute Assessment and Plan: 54yo F with uncontrolled DM2 admitted with acute ischemic CVA complicated by subarachnoid hemorrhage # acute ischemic CVA # SAH - neurology consult - PT/OT/SORT OPERATIONS SUPERVISOR evaluations tomorrow. will likely benefit from AIR - high-intensity statin - discussed with neurology timing of starting anti-platelet therapy- OK to start ASA tomorrow # HTN - holding losartan + HCTZ to allow permissive hypertension # DM2 with hyperglycemia - A1c 13.5. will start Lantus 20 units qhs + increase correction-dose Humalog. pt was on GPZ + MTF at home but per noncompliant # UTI - start nitrofurantoin, follow UCx # VTE ppx - hold LMWH due to SAH
[2020-01-14] MEDS: Nitrofurantoin Monohyd/M-Cryst 100 MG CAPSULE PO (12:37)
--- NOTE | 2020-01-14 14:19 | PC.NURSE ---
Pt didn't bring voice box, unable to talk alot.
--- NOTE | 2020-01-14 15:50 | MHC.CM.PN ---
Addendum entered by Jenny Leiva 01/14/20 16:02: sons contact info: Marcos Saucedo [phone] Original Note: CM met with pt with the assistance of a management tech. Pts son arrived during assessment and was able to provide additional information.Pt lives at home with her and at baseline she is independent with care and mobility. pt has no services and no DME. Pt does not have a HCP and wants to wait until her is present tomorrow to complete one. A [place] and [place] information packet were provided for her review. Pt is aware she will likely need acute rehab. [facility] is first choice. Referrals placed and liaisons will review once PT/OT evals are available. Pt is [place] Speaking only and deaf. She is able to read lips. IMM delivered current DC plan is [place] Pt will need BLS transport
[2020-01-14 16:53] LABS: Glucose, Whole Blood 239 mg/dL (60-115)
[2020-01-14 21:09] LABS: Glucose, Whole Blood 242 mg/dL (60-115)
[2020-01-15] VITALS (8 sets, daily range): BP systolic 110–173; BP diastolic 61–93; PULSE 75–91; RESP 18–20; TEMP 36.1–36.8; O2SAT 94–100; BMI 30.4
[2020-01-15] MEDS: 0.9 % Sodium Chloride Flush 3 ML SYRINGE IVFLUSH ×4 (00:08→21:17)
[2020-01-15] MEDS: Nitrofurantoin Monohyd/M-Cryst 100 MG CAPSULE PO ×2 (00:16→14:26)
[2020-01-15] MEDS: HYDROcodone Bit/Acetam 5/325 TABLET 1 TAB PO ×2 (02:06→21:18)
[2020-01-15] MEDS: ondansetron HCL 4 MG/2 ML VIAL IVPUSH (05:19)
[2020-01-15 07:16] LABS: Cholesterol 126 mg/dL; HDL Cholesterol 32 mg/dL; LDL Cholesterol Calculated 74 mg/dl; Triglycerides 102 mg/dL
[2020-01-15 09:05] LABS: Glucose, Whole Blood 380 mg/dL (60-115)
[2020-01-15] MEDS: Insulin Lispro 100 UNIT/ML 3 ML VIAL SUBCUT ×4 (09:29→21:40)
[2020-01-15] MEDS: Insulin Glargine,Hum.rec.anlog 100 UNIT/ML 10 ML VIAL 25 UNIT SUBCUT (09:31)
[2020-01-15] MEDS: Aspirin 81 MG TAB.CHEW PO (09:36)
[2020-01-15] MEDS: Atorvastatin Calcium 80 MG TABLET PO (09:36)
--- NOTE | 2020-01-15 11:00 | CA_ITS ---
Transthoracic Echocardiogram Patient (Last, First, Middle): Juanis Brown, Gender: Female Date of : 1965 Age: 54 Procedure Date: 01/15/2020 Procedure Type: Transthoracic Echocardiogram Location: [facility] [place] Height: 154.94 cm Weight: 74.84 kg BSA: 1.74 m2 Heart Rate: bpm Lawyers: SHARON Referring MD: Anna BURGESS Symptoms: cva Study Quality: Fair ECG Rhythm: Sinus Conclusions: - Normal left ventricular size, thickness, and systolic function. The visually estimated ejection fraction is between 60-65%. - E/E prime ratio is between 8 and 15 consistent with indeterminate filling pressures. - Normal right ventricular cavity size and systolic function. - Cannot rule out basal inferior akinesis. Findings Left Ventricle Normal left ventricular size, thickness, and systolic function. The visually estimated ejection fraction is between 60-65%. Regional wall motion abnormalities can not be excluded due to suboptimal endocardial definition. Diastolic function is indeterminate on the basis of available data. Spectral Doppler is indicative of an impaired relaxation filling pattern. E/E prime ratio is between 8 and 15 consistent with indeterminate filling pressures. Right Ventricle Normal right ventricular cavity size and systolic function. Atria The left atrium is normal in size. There is no evidence of interatrial shunt by color Doppler. Aortic Valve There is a normal trileaflet aortic valve. There is no aortic valve stenosis. There is no aortic valve regurgitation. Mitral Valve Normal mitral valve structure and function. There is no mitral valve regurgitation. There is no mitral valve stenosis. Pulmonic Valve Normal pulmonic valve structure and function. There is trace pulmonic valve regurgitation. Tricuspid Valve Normal tricuspid valve structure and function. There is trace tricuspid valve regurgitation. Normal right atrial pressure. There is no evidence of pulmonary hypertension. Great Vessels All visible segments of the aorta are normal in size. The visualized portions of the pulmonary artery and branches are normal. Venous The inferior vena cava is normal in size and collapses greater than 50% with inspiration. Pericardium/Pleural There is no evidence of pericardial effusion. Prior Study Comparison Changes noted compared to prior study dated: 04/17/2013. Cannot rule out basal inferior wall akinesis. Recommendations, Care & Conclusions Recommend contrast in the future to improve endocardial definition. Measurements 2D Linear Measurements IVSd: 1.29 0.6-0.9/0.6-1.0 cm LVIDd: 3.47 3.9-5.3/4.2-5.9 cm LVIDd Index: 1.99 2.4-3.2/2.2-3.1 cm/m2 LVIDs: 2.39 2.0-3.6 cm LVPWd: 1.28 0.7-1.1 cm Ao Root: 3.00 2.1-3.5 cm LA Diam: 3.50 2.7-3.8/3.0-4.0 cm LAIDs Index: 2.01 1.5-2.3 cm/m2 LV Mass: 185.71 67-162/88-224 g LV Mass Index: 106.73 43-95/49-115 g/m2 LVOT Diam: 2.20 3.0+(-)1.3 cm Mitral Valve MV Pk E: 0.58 MV PK A: 0.93 MV Decel Time: 141.00 E/A: 0.60 E'Lateral: 6.58 E'Medial: 4.64 E/E' Med: 12.40 E/E' Lat: 8.80 PHT: 41.00 MVA PHT: 5.37 Decel Meagher: 4.10 Aortic Valve AoV Pk Alpesh: 1.31 AoV Mn Alpesh: 0.80 AoV VTI: 0.29 AoV Pk Grad: 7.00 Aov Mn Grad: 3.00 ECHO Cont.VTI: 3.37 LVOT LVOT Pk Alpesh: 0.78 LVOT Mn Alpesh: 0.48 LVOT VTI: 0.26 LVOT Pk Grad: 2.00 LVOT Mn Grad: 1.00 LVOT Diam: 2.20 LVOT Area: 3.80 Diastolic Function MV Pk E: 0.58 MV Pk A: 0.93 E/A: 0.60 E'Medial: 4.64 E/E' Med: 12.40 E' Laterial: 6.58 E/E' Lat: 8.80 Tricuspid Valve TR Pk Alpesh: 1.70 TR Pk Grad: 12.00 RA Press: 3.00 RVSP: 15.00 Great Vessels Aorta Ao Root-2D: 3.00 2.0-3.7 cm Ao Asc: 3.10 2.1-3.4 cm Pulmonary Valve PV Pk Alpesh: 0.84 Peak PV Grad: 3.00 Updated in Other Vendor System with Status of Final Leonard Aldridge MD electronically signed on 01/15/2020 6:50:57 PM with status of Final
--- NOTE | 2020-01-15 11:05 | MHC.CM.PN ---
Waiting for OT/ST eval to update acute rehab for discharge plan. CM will continue to follow patient for discharge needs.
[2020-01-15 11:48] LABS: Glucose, Whole Blood 329 mg/dL (60-115)
--- NOTE | 2020-01-15 14:37 | MHC.STROKE ---
I MET WITH THE PATIENT WHILE FACETIMING WITH A FAMILY MEMBER AND I PROVIDED STROKE EDUCATION. WE REVIEWED THE MRI IMAGES AND I EXPLAINED THE LOCATION OF THE STROKE CORRELATING WITH HER SYMPTOMS. SHE WILL REQUIRE REINFORCEMENT TOMORROW AND I WILL CONTINUE THE EDUCATION INCLUDING ALL OF HER INDIVIDUAL RISK FACTORS AND PROGNOSIS.
--- NOTE | 2020-01-15 15:32 | MHC.CM.PN ---
Patient has been accepted to [facility] for tomorrow at 11am. Spoke with patient and via system support technician who agree with discharge plan. CM will continue to follow for discharge needs.
--- NOTE | 2020-01-15 15:36 | P.PNIM_ITS ---
Subjective Subjective Date of Service: 01/15/20 Interval History: History taken from patient in Swedish [she is hearing-impaired but reads lips] and her EVANS improved Very slight improvement in LLE + LUE weakness Per family, not compliant with her DM2 medications or diet Review of Systems Denies fever, chills, cough, dyspnea, chest pain, nausea, vomiting, or abdominal pain. Physical Exam Vital Signs: Vital Signs: Vital Signs Temp Pulse Resp BP Pulse Ox 01/15/20 15:10 97.9 F 78 18 149/90 H 97 01/15/20 11:29 97.0 F 86 18 173/93 H 95 01/15/20 10:00 75 148/87 H 94 01/15/20 08:00 97.0 F 75 20 148/87 H 94 01/15/20 04:00 97.5 F 85 18 160/79 H 98 01/15/20 00:00 97.6 F 86 19 170/90 H 97 01/14/20 21:57 140/90 H 01/14/20 19:15 97.4 F 89 18 178/86 H 97 01/14/20 15:51 97.0 F 87 18 160/81 H 97 Body Mass Index 30.4 Const General: healthy appearing and well developed; No acute distress Orientation/consciousness: patient oriented x3 HENMT Other: Hearing impaired, has amplification devices Head: Yes normal to inspection Ears: hearing grossly normal bilaterally Neck Neck: Yes supple Chest Chest palpation & inspection: normal inspection of the chest Resp Effort & Inspection: normal respiratory effort Auscultation: clear to auscultation bilaterally Cardio Rate: regular rate Rhythm: regular rhythm Heart sounds: no murmurs GI Inspection: Yes normal to inspection Palpation (GI): Soft to palpation and nontender Neuro General: patient oriented x3 Motor exam (neuro): Other motor observations present (3/5 strength LLE, 4/5 in the LUE with pronator drift) Objective Data Current Medications Generic Name Dose Route Start Last Admin Trade Name Freq PRN Reason Stop Dose Admin Acetaminophen 650 mg 01/13/20 19:01 01/14/20 08:15 Acetaminophen 325 Mg Tablet PO 650 mg Q6H PRN Administration Pain, Mild (Pain Scale 1-3) Hydrocodone Bitart/Acetaminophen 1 tab 01/14/20 09:41 01/15/20 02:06 Hydrocodone Bit/Acetam 5/325 Tablet PO 1 tab Q4H PRN Administration severe headache Aspirin 81 mg 01/15/20 09:00 01/15/20 09:36 Aspirin 81 Mg Tab.Chew PO 81 mg DAILY BOBO Administration Atorvastatin Calcium 80 mg 01/13/20 21:00 01/15/20 09:36 Atorvastatin Calcium 80 Mg Tablet PO 80 mg DAILY BOBO Administration Docusate Sodium 100 mg 01/13/20 19:01 Docusate Sodium 100 Mg Capsule PO DAILY PRN Constipation Insulin Glargine 25 unit 01/15/20 09:00 01/15/20 09:31 Insulin Glargine,Hum.Rec.Anlog 100 Unit/Ml 10 Ml Vial SUBCUT 25 unit DAILY COUNTS INCLUDE 234 BEDS AT THE [facility] Administration Insulin Human Lispro 0 unit 01/15/20 11:30 01/15/20 12:05 Insulin Lispro 100 Unit/Ml 3 Ml Vial SUBCUT 12 unit QIDACHS COUNTS INCLUDE 234 BEDS AT THE [facility] Administration Protocol Nitrofurantoin Macrocrystals 100 mg 01/14/20 13:00 01/15/20 14:26 Nitrofurantoin Monohyd/M-Cryst 100 Mg Capsule PO 100 mg Q12H BOBO Administration Ondansetron HCl 4 mg 01/13/20 19:01 01/15/20 05:19 Ondansetron Hcl 4 Mg/2 Ml Vial IVPUSH 4 mg Q8H PRN Administration Nausea and Vomiting Pharmacy Consult 1 each 01/13/20 16:07 Consult Rx Perform Med Rec MISCELLANE ONCE PRN Consult order Sodium Chloride 3 ml 01/14/20 00:00 01/15/20 12:05 0.9 % Sodium Chloride Flush 3 Ml Syringe IVFLUSH 3 ml QSHIFT COUNTS INCLUDE 234 BEDS AT THE [facility] Administration Labs CBC & Chem 7: 01/14/20 06:03 01/14/20 06:03 Labs: Laboratory Results - last 24 hr 01/14/20 01/14/20 01/15/20 16:45 21:02 05:58 POC Glucose 239 H 242 H Triglycerides 102 Cholesterol 126 LDL Cholesterol, Calc 74 HDL Cholesterol 32 01/15/20 01/15/20 09:01 11:44 POC Glucose 380 H* 329 H Triglycerides Cholesterol LDL Cholesterol, Calc HDL Cholesterol Microbiology Microbiology Results: Microbiology 01/13/20 10:32 Urine clean catch - Clean Catch Midstream Urine Culture - Final Klebsiella pneumoniae Assessment and Plan (1) Stroke: Status: Acute (2) Subarachnoid hemorrhage following injury: Status: Acute Assessment and Plan: 54yo hearing-impaired F with uncontrolled DM2 presented with acute LLE > LUE weakness outside of tPA window admitted for acute ischemic CVA complicated by subarachnoid hemorrhage # acute ischemic CVA # SAH - neurology consulted and cleared her to start ASA today - high-intensity statin - counseled glycemic control - PT/OT/HEAD OF INSIGHT evaluations, d/[facility] to [facility] tomorrow at 11:00 # HTN - holding losartan + HCTZ to allow permissive hypertension, consider restarting upon discharge # DM2 with hyperglycemia, A1c 13.5 - was on GPZ + MTF but non-compliant - started on Lantus, increase to 25 units qhs, also increase Humalog custom correction scale due to her severe insulin resistance # Klebsiella UTI - change to cefuroxime (I to nitrofurantoin) d #04/02 # VTE ppx - hold LMWH due to SAH - SCDs
[2020-01-15 16:31] LABS: Glucose, Whole Blood 233 mg/dL (60-115)
[2020-01-15 16:36] LABS: SARS COV2 PCR INHOUSE NEGATIVE (Negative)
[2020-01-15 20:49] LABS: Glucose, Whole Blood 207 mg/dL (60-115)
[2020-01-16] MEDS: HYDROcodone Bit/Acetam 5/325 TABLET 1 TAB PO (02:29)
[2020-01-16 03:48] VITALS: BP 144/83; PULSE 74; RESP 18; TEMP 37; O2SAT 99
[2020-01-16 07:22] LABS: Glucose, Whole Blood 227 mg/dL (60-115)
[2020-01-16] MEDS: Insulin Lispro 100 UNIT/ML 3 ML VIAL SUBCUT ×2 (08:17→11:57)
[2020-01-16 08:18] VITALS: BP 140/58; PULSE 80; RESP 18; TEMP 36.1; O2SAT 97
[2020-01-16] MEDS: Insulin Glargine,Hum.rec.anlog 100 UNIT/ML 10 ML VIAL 30 UNIT SUBCUT (08:18)
[2020-01-16] MEDS: Atorvastatin Calcium 80 MG TABLET PO (08:18)
[2020-01-16] MEDS: Aspirin 81 MG TAB.CHEW PO (08:18)
[2020-01-16] MEDS: 0.9 % Sodium Chloride Flush 3 ML SYRINGE IVFLUSH (08:19)
[2020-01-16 08:49] VITALS: BP 140/58; PULSE 80; O2SAT 97
--- NOTE | 2020-01-16 10:42 | MHC.STROKE ---
I MET WITH THE PATIENT AND HER WITH THE [employer] AND I REINFORCED THE STROKE EDUCATION FROM YESTERDAY. I WAS ABLE TO ANSWER ALL OF THEIR QUESTIONS AND REVIEW THE INDIVIDUAL RISK FACTORS. SHE IS GOING TO ACUTE REHAB TODAY AND WE DISCUSSED HOW MUCH THE REHAB IS GOING TO HELP HER. I STRESSED THE IMPORTANCE OF FOLLOWING THE PLAN OF CARE AND PARTNERING WITH HER MD.
[2020-01-16 11:33] LABS: Glucose, Whole Blood 323 mg/dL (60-115)
--- NOTE | 2020-01-16 12:07 | PM.DS ---
DS: Providers Provider Date of admission: 01/13/20 17:08 Primary care physician: Cara Carlin MD Consults: 01/13/20 12:07 Consult to Neurology Stat Consulting Provider: [facility] Reason for consultation: stroke Has provider been notified: Yes DS: Diagnosis Discharge Diagnosis (1) Stroke: Status: Acute (2) Subarachnoid hemorrhage: Status: Acute (3) Uncontrolled diabetes mellitus: Status: Acute DS: Summary Hospital Course Hospital Course: patient presented to the hospital with neurological deficits. She was diagnosed with acute ischemic stroke and unfortunately was out of the tPA window. her statin was increased to the high intensity, atorvastatin 80 mg. aspirin was held initially as there was a small subarachnoid hemorrhage. She was seen in consultation by Neurology who recommended PT OT and initiation of aspirin. Her antihypertensives were held to allow for permissive hypertension and can be resumed upon discharge. Additionally, patient's sugars were uncontrolled, A1c showed a value of greater than 13. metformin and glipizide which she was on at home were held and she was started on Lantus plus Humalog sliding scale which she will be discharged on. Metformin can be re-initiated and glipizide discontinued at this time. She will be given a referral to Endocrinology which should call and follow-up with. Lastly, patient's urine grew Klebsiella which was sensitive to ceftriaxone. She will be discharged with 4 more days of p.o. Ceftin. Time Spent with Patient Time attestation: Total time spent providing and/or coordinating discharge services: Quality: Stroke Pt Provided Written Stroke Discharge Instructions: Patient given written information Physical Exam Vital Signs: Vital Signs: Vital Signs Temp Pulse Resp BP Pulse Ox 01/16/20 08:49 80 140/58 H 97 01/16/20 08:18 96.9 F 80 18 140/58 H 97 01/16/20 03:48 98.6 F 74 18 144/83 H 99 01/15/20 23:58 97.8 F 83 18 110/61 99 01/15/20 19:29 98.3 F 91 20 150/90 H 100 01/15/20 15:10 97.9 F 78 18 149/90 H 97 Body Mass Index 30.4 General - no acute distress, appears comfortable Cardiovascular - regular rate and rhythm, S1-S2 Lungs - normal respiratory effort, clear to auscultation bilaterally, no wheezing Abdomen - soft, nontender, no rebound regarding Extremities - no edema bilaterally Neuro - awake and alert, LLE - 3+/5 motor, LUE 4+/5 motor DS: Data Data Completed and Pending Labs on day of discharge: Labs from last 24 hours 01/16/20 01/16/20 01/15/20 11:30 07:19 Unknown POC Glucose 323 H 227 H Coronavirus (PCR) NEGATIVE 01/15/20 01/15/20 20:38 16:27 POC Glucose 207 H 233 H Coronavirus (PCR) Discharge Plan Discharge Patient Disposition: Xfer Inpatient Rehab Fac Referrals: Cara Carlin MD [Primary Care Provider] - Skinny Zaragoza MD [Physician] - (Uncontrolled DM2 with A1c 13.6 Hearing-impaired, Macedonian lip-reading) Discharge Medications: New insulin lispro [Humalog U-100 Insulin] 100 unit/mL Solution 1 unit subcut QIDACHS Qty: 10 RF: 0 atorvastatin 80 mg Tablet 80 mg PO DAILY Qty: 30 RF: 0 Lantus U-100 Insulin 100 unit/mL Solution 30 unit subcut DAILY Qty: 10 RF: 0 aspirin 81 mg Tablet,Chewable 81 mg PO DAILY Qty: 30 RF: 0 cefuroxime axetil 250 mg tablet 250 mg PO BID Qty: 8 RF: 0 Continued metformin 1,000 mg tablet 1 tab PO BID RF: 0 hydrochlorothiazide 25 mg tablet 1 tab PO DAILY RF: 0 losartan 100 mg tablet 1 tab PO DAILY RF: 0 Discontinued metronidazole 500 mg tablet 1 tab PO BID RF: 0 pravastatin 20 mg tablet PO RF: 0 glipizide 5 mg tablet 1 tab PO BID RF: 0 Discharge Orders: Discharge Order (Routine); Ordered 01/16/20 Ordered By: Teo Alonso Diet: diabetic diet and low fat, low cholesterol Activity on Discharge: Use cane or walker Patient Instructions: Ischemic Stroke (DC) Visit Report Forms: Patient Portal Discharge page Care Plan Goals: recovery of L leg and arm function Health Concerns: stroke, uncontrolled diabetes mellitus Plan of Treatment: acute inpatient rehabilitation take aspirin 81 mg daily and atorvastatin 80 mg daily to prevent further strokes referral to endocrinology. start Lantus for diabetes mellitus control. Mediterranean diet.
[2020-01-16 12:12] VITALS: BP 146/85; PULSE 91; RESP 18; TEMP 36.5; O2SAT 98
--- NOTE | 2020-01-16 12:43 | MHC.CM.PN ---
IMM 01/16/20 DC to [facility] via [facility] today.
--- NOTE | 2020-01-17 09:43 | MHC.STROKE ---
01/17/20 DR. BOO AT [facility] HAD A QUESTION REGARDING VTE PROPHYLAXIS RECOMMENDATIONS, I DID CHECK WITH DR WILL AND HE SAID SHE IS SAFE TO USE ANY VTE PROPHYLAXIS THEY CHOODE . I CALL DR BOO AT [phone] AND RELAYED THIS RECOMMENDATION TO HER.
== END 2020-01-16 13:30 | DRG 64 ==
LOC: HO.ED 16:33 → HO.IMC 17:26
PROVIDERS: Physician Assistant Medical; Admitting Provider Family Medicine; Emergency Provider Emergency Medicine; PCP Internal Medicine; Visit Provider Family Medicine
DX: I63.9 Cerebral infarction, unspecified (principal); S06.6X0A Traumatic subarachnoid hemorrhage without loss of consciousness, initial encounter; G81.94 Hemiplegia, unspecified affecting left nondominant side; N39.0 Urinary tract infection, site not specified; R29.702 NIHSS score 2; E11.9 Type 2 diabetes mellitus without complications; R74.01 Elevation of levels of liver transaminase levels; E11.65 Type 2 diabetes mellitus with hyperglycemia; I10 Essential (primary) hypertension; B96.1 Klebsiella pneumoniae [K. pneumoniae] as the cause of diseases classified elsewhere; W19.XXXA Unspecified fall, initial encounter; Y93.9 Activity, unspecified; Y92.9 Unspecified place or not applicable; Y99.9 Unspecified external cause status; Z20.828 Contact with and (suspected) exposure to other viral communicable diseases; Z79.4 Long term (current) use of insulin; Z79.82 Long term (current) use of aspirin; Z79.899 Other long term (current) drug therapy
CPT/HCPCS: 36415; 70450; 70496; 70498; 70551; 71045; 72125; 80048; 80061; 80076; 81001; 82947; 83036; 83690; 84484; 85025; 85027; 85610; 85730; 87086; 87088; 87186; 87635; 92523; 92610; 93005; 93306; 96374; 97110; 97116; 97162; 97166; 99223; 99285; 99291; J2270; J2405

== ENCOUNTER 2020-02-20 09:57 | Outpatient (REF) | payer MEDICARE, MEDICAID, SELFPAY | END 2020-02-20 09:58 | disposition home or self-care (01) | LOC: HO.LAB 09:57 | PROVIDERS: PCP Internal Medicine; Visit Provider Internal Medicine | DX: Z20.828 Contact with and (suspected) exposure to other viral communicable diseases (principal) | CPT/HCPCS: C9803; U0003 ==

== ENCOUNTER → 2020-03-28 09:06 | Outpatient (BNVA) | payer MEDICARE, MEDICAID, SELFPAY | PROVIDERS: PCP Internal Medicine; Referring Provider Internal Medicine; Visit Provider Internal Medicine | DX: Z76.89 Persons encountering health services in other specified circumstances (principal) ==

== ENCOUNTER 2020-04-22 12:51 | Outpatient (REF) | payer MEDICARE, MEDICAID, SELFPAY | END 2020-04-22 12:52 | disposition home or self-care (01) | LOC: HO.HAP 12:51 | PROVIDERS: Visit Provider Internal Medicine | DX: Z46.1 Encounter for fitting and adjustment of hearing aid (principal); H90.3 Sensorineural hearing loss, bilateral | CPT/HCPCS: 92592; 99499; V5266; V5275 ==

== ENCOUNTER 2020-05-09 09:45 | Outpatient (REF) | payer MEDICARE, MEDICAID, SELFPAY | END 2020-05-09 09:46 | disposition home or self-care (01) | LOC: HO.HAP 09:45 | PROVIDERS: Visit Provider Internal Medicine | DX: Z46.1 Encounter for fitting and adjustment of hearing aid (principal) | CPT/HCPCS: V5264 ==

== ENCOUNTER 2020-06-21 14:49 | Outpatient (REF) | payer MEDICARE, MEDICAID, SELFPAY ==
--- NOTE | ~2020-06-21 | MM_ITS ---
EXAMINATION: MM DIAGNOSTIC DIGITAL BREAST TOMOSYNTHESIS, BILATERAL CLINICAL INFORMATION: Six-month follow-up right breast for superior lateral density. Screening left breast study. The lifetime risk of breast cancer based on the Tyrer-Cuzick Model is 10.0%. COMPARISON: Mammography: May 05, 2019 and studies dating back to September 20, 2008 TECHNIQUE: Digital breast tomosynthesis is performed in both the craniocaudal and mediolateral oblique views along with computer-aided detection (CAD). Synthesized 2D images are generated from the tomosynthesis. FINDINGS: The breasts are heterogeneously dense, which may obscure small masses (ACR BI-RADS breast composition Category c). There are no significant masses, abnormal calcifications, or other abnormalities. Previously noted density about the upper outer aspect of the right breast may have represented vessel and is not identified on today's study. Results are provided to the patient at time of visit by the technologist. MM/MM tomosynthesis diagnostic BI IMPRESSION: No specific mammographic evidence to suggest malignancy. ASSESSMENT: BI-RADS 1: Negative RECOMMENDATION: Routine annual mammography screening due in 12 months. This patient's information was entered into a reminder system with a target due date for their next mammogram.
== END 2020-06-21 14:50 | disposition home or self-care (01) ==
LOC: HO.MAMMO 14:49
PROVIDERS: PCP Internal Medicine; Visit Provider Internal Medicine
DX: R92.2 Inconclusive mammogram (principal)
CPT/HCPCS: 77062; 77066

== ENCOUNTER 2021-06-26 11:11 | Outpatient (REF) | payer MEDICARE, MEDICAID, SELFPAY | END 2021-06-26 11:12 | disposition home or self-care (01) | LOC: HO.HAP 11:11 | PROVIDERS: Visit Provider Internal Medicine | DX: Z46.1 Encounter for fitting and adjustment of hearing aid (principal); H90.3 Sensorineural hearing loss, bilateral | CPT/HCPCS: 92593; V5266 ==

== ENCOUNTER 2022-01-22 09:00 | Outpatient (REF) | payer MEDICARE, MEDICAID, SELFPAY ==
--- NOTE | 2022-01-22 10:05 | MHC.AU.FUL ---
Hearing Instrument Follow-Up Date of Visit: 01/22/22 Armature Winder Repair Used: Marlee from [facility] [place] Speech and Hearing Dept. Left Ear:Maria Antonia Chavarria V50-SP SN: [id number] Color: [place] Repair Warranty: 08/27/2017 Loss and Damage Warranty: 08/27/2017 Battery Size: 13 TubinT double Type of Mold: [place] canal mold Dispensed By: [facility] Date of Fittin06/13/2015 Follow-Up Summary: Juanis returned for hearing aid maintenance and an ear mold impression. She reported that her hearing aid and ear mold are causing significant discomfort around her pinna and in her ear canal. She also reported faster battery drain. The tubing was extremely hard and likely pulling on the mold causing some of the discomfort. Cleaned the hearing aid and ear mold. Replaced the tubing. A listening check demonstrated that the hearing aid is in good working order. Juanis also inquired about a smaller hearing aid as it reportedly interferes with her glasses and mask and causes discomfort. Explained severity of hearing loss and need for larger hearing aid for appropriate amplification. However, her hearing aid is over six years old and a new hearing aid can be discussed pending an updated audiological evaluation. In the meantime, an impression was taken of the left ear, without incident, to order a new ear mold in a softer material. Recommendations: Juanis will be contacted to schedule an appointment when the new ear mold arrives. She should contact her primary care physician for a doctor's order for a hearing test. Juanis reportedly leaves for [place] on March 17 and will not return until March. Recommended updated hearing test to begin the process for a new hearing aid when she returns from [place]. Diagnosis Code(s): Primary Diagnosis: H90.3 Bilateral Sensorineural Hearing Loss Signature: Provider: Dana Magallon, [facility]
== END 2022-01-22 09:01 | disposition home or self-care (01) ==
LOC: HO.HAP 09:00
PROVIDERS: Visit Provider Internal Medicine
DX: Z46.1 Encounter for fitting and adjustment of hearing aid (principal); H90.3 Sensorineural hearing loss, bilateral
CPT/HCPCS: 92592; V5266

== ENCOUNTER 2022-02-16 12:59 | Outpatient (REF) | payer MEDICARE, MEDICAID, SELFPAY ==
--- NOTE | 2022-02-16 15:20 | MHC.AU.HFU ---
Hearing Instrument Follow-Up- Binaural Date of Visit: 02/16/22 Left Ear: Maria Antonia Chavarria V50-SP SN: [id number] Color: [place] Repair Warranty: 08/27/2017 Loss and Damage Warranty: 08/27/2017 Battery Size: 13 Type of Mold: [place] canal mold Dispensed By: [facility] Date of Fittin06/13/2015 Follow-Up Summary: Juanis picked up her new ear mold. Comfortable with no feedback in office. She has her old ear mold to keep as back up. Juanis reported, again, that her hearing aid causes discomfort to the back of the pinna, especially with the masks and glasses, as well as has accelerated battery drain. Reexplained severity of loss and need for larger hearing aid for appropriate amplification and recommend new hearing aid due to age of current device. Recommendations: Juanis will contact her primary care physician for a doctor's order for a hearing test to start the process for a new hearing aid. Diagnosis Code(s): Primary Diagnosis: H90.3 Bilateral Sensorineural Hearing Loss Signature: Provider: Dana Magallon, [facility]
== END 2022-02-16 13:00 | disposition home or self-care (01) ==
LOC: HO.HAP 12:59
PROVIDERS: Visit Provider Internal Medicine
DX: Z46.1 Encounter for fitting and adjustment of hearing aid (principal); H90.3 Sensorineural hearing loss, bilateral
CPT/HCPCS: V5264

== ENCOUNTER 2022-08-09 18:21 | Emergency (ER) | payer MEDICARE, MEDICAID, SELFPAY ==
--- NOTE | ~2022-08-09 | US_ITS ---
EXAMINATION: US ABDOMEN LIMITED CLINICAL INFORMATION: Right upper quadrant abdominal pain. Evaluate for cholecystitis. COMPARISON: Selected images of the abdomen and pelvic CT scan of 04/25/2015. Abdominal ultrasound of 04/06/2006. TECHNIQUE: Real-time imaging of the right upper quadrant abdominal viscera. FINDINGS: PANCREAS: Visualized pancreatic head and body are unremarkable, remainder of the pancreas is obscured from visualization by overlying bowel gas. LIVER: Normal in size and contour. There is diffusely increased liver parenchymal echogenicity, consistent with steatosis. Evaluation for focal hepatic lesion in the setting of underlying steatosis is limited. No obvious hepatic lesion is seen. No intrahepatic biliary ductal dilatation. GALLBLADDER: Not seen. Surgical clips are noted in the gallbladder fossa on the previous CT scan of 04/25/2015 suggesting prior cholecystectomy. COMMON BILE DUCT: Not well seen. The visualized portion of the proximal common bile duct measures 0.5 cm in diameter. RIGHT KIDNEY: Normal. No hydronephrosis. No renal calculi or focal parenchymal lesions. The kidney measures 10.7 cm in maximum dimension. FREE FLUID: None. US/US abdomen limited IMPRESSION: 1. Status post cholecystectomy. No biliary ductal dilatation. 2. Diffuse hepatic steatosis.
--- NOTE | ~2022-08-09 | CT_ITS ---
EXAMINATION: CT ABDOMEN AND PELVIS WITHOUT CONTRAST CLINICAL INFORMATION: Upper abdominal pain COMPARISON: 04/25/2015 TECHNIQUE: Multidetector volumetric imaging was performed from the superior aspect of the liver through the pubic symphysis. Sagittal and coronal reformatted images were obtained on the technologist's workstation. This CT examination was performed using dose optimization techniques as appropriate, variously including the following: *Automated exposure control *Adjustment of mA and/or kV according to patient size (this includes techniques or standardized protocols for targeted exams where dose is matched to indication/reason for exam; i.e. extremities or head) *Use of iterative reconstruction technique DLP: 576 mGy-cm FINDINGS: LUNG BASES: The visualized lung bases are unremarkable. LIVER, GALLBLADDER, AND BILIARY TREE: The liver is normal in size, shape, and attenuation. No focal hepatic lesion or biliary ductal dilatation is present. Cholecystectomy. PANCREAS: Unremarkable. SPLEEN: Unremarkable. ADRENAL GLANDS: Unremarkable. KIDNEYS AND URETERS: The kidneys are normal in size, shape, and attenuation. No hydronephrosis, hydroureter, or calculi seen. No perinephric stranding. BLADDER: Unremarkable. GASTROINTESTINAL TRACT: Small sliding-type hiatal hernia. Stomach otherwise unremarkable. The small and large bowel are unremarkable. The appendix is unremarkable. ABDOMINAL WALL: No significant hernia is appreciated. LYMPH NODES: Normal. VASCULAR: Unremarkable. PELVIC VISCERA: Hysterectomy. Right ovary is normal. Left ovary located in the left lower quadrant containing a 2.2 cm simple appearing cyst. No follow-up imaging recommended. On the prior examination, this was described as a complex fluid focus in the left lower quadrant, and was larger at that time. OSSEOUS STRUCTURES: No acute or suspicious osseous abnormalities. CT/CT abdomen pelvis wo IV con IMPRESSION: * No acute findings within the abdomen or pelvis to explain the patient's symptomatology. * Cholecystectomy and hysterectomy.
[2022-08-09 18:28] VITALS: BP 118/69; PULSE 110; RESP 16; TEMP 36.6; O2SAT 96; BMI 28.3
--- NOTE | 2022-08-09 18:30 | ED.GENADULT ---
HPI - General Adult General Chief complaint: Abdominal Pain Stated complaint: Abd pain/some vomiting Time Seen by Provider: 08/09/22 18:42 Source: patient Mode of arrival: ambulatory Limitations: no limitations History of Present Illness HPI narrative: Patient complaining of pain in epigastric area for last 4 days with nausea and vomiting unable to eat much because of pain patient is status post cholecystectomy, has history of diabetes and hypertension no fever no chills Related Data Home Medications Medication Instructions Recorded Confirmed hydrochlorothiazide 25 mg tablet 1 tab PO DAILY 01/13/20 01/13/20 metformin 1,000 mg tablet 1 tab PO BID 01/13/20 01/13/20 amlodipine 5 mg tablet 5 mg PO QAM 03/28/20 aspirin 325 mg tablet,delayed 325 mg PO BEDTIME 03/28/20 release blood sugar diagnostic #10 ea 03/28/20 ergocalciferol (vitamin D2) 1,250 1,250 mcg PO QWEEK 03/28/20 mcg (50,000 unit) capsule insulin aspart U-100 100 unit/mL unit subcut 03/28/20 (3 mL) subcutaneous pen insulin glargine 100 unit/mL (3 35 unit subcut DAILY 03/28/20 mL) subcutaneous pen lancets 33 gauge #100 ea 03/28/20 losartan 50 mg tablet 50 mg PO DAILY 03/28/20 pen needle, diabetic 32 gauge x #50 ea 03/28/20 Previous Rx's Medication Instructions Recorded atorvastatin 80 mg tablet 80 mg PO DAILY #30 tabs 01/16/20 cefuroxime axetil 250 mg tablet 250 mg PO BID 7 days #14 tabs 08/09/22 pantoprazole 40 mg tablet,delayed 40 mg PO DAILY #30 tabs 08/09/22 release (Protonix) sucralfate 1 gram tablet 1 g PO BID #60 tabs 08/09/22 Allergies Allergy/AdvReac Type Severity Reaction Status Date / Time No Known Allergies Allergy Mild NOT Verified 03/28/20 11:22 APPLICABLE Review of Systems Review of Systems: Yes all other systems are reviewed and are negative [facility] Past Medical History Medical History Diabetes [place] (hard of hearing) Hypertension Subarachnoid hemorrhage Uncontrolled diabetes mellitus Surgical History Hx of cholecystectomy Family History Family History Unknown Unknown family medical history Social History Social History Household Members: Spouse Housing: House Do you presently have visiting nurse or other home services: No Alcohol intake: never Smoked in Last 30 Days: No Use of substances other than those prescribed or required for medical reasons: No Advance Directives: No Advance Directives Information Provided: No Patient : No service: No Current occupational status: unemployed Physical Exam ED Vital Signs: Vital Signs - 24 hr 08/09/22 18:28 08/09/22 21:53 Temperature 97.9 F 98.3 F Pulse Rate 110 H 88 Respiratory Rate 16 19 Blood Pressure 118/69 108/57 L Pulse Oximetry 96 98 Oxygen Delivery Method Room Air Room Air BMI result Body Mass Index 28.3 Appearance: Alert. Oriented X3. No acute distress. Eyes: No pallor or icterus ENT: Pharynx normal. Oral Mucosa moist Neck: Normal inspection. Neck supple. CVS: Normal heart rate and rhythm. Pulses normal. Respiratory: No respiratory distress. Equal air entry bilateral, no wheezing/rales/rhonchi Abdomen: Soft tender epigastric area guarding no rebound tenderness, Bowel sounds are present, no mass palpable, no CVA tenderness Skin: Skin warm and dry. Normal skin color. Normal skin turgor. Extremities: No lower extremity edema. No calf tenderness Neuro: Oriented X 3. No motor deficit. No sensory deficit.No cerebellar signs , cranial nerves II-XII intact Course Course Course Narrative: RME performed by Teresita Lazcano PA-C. Patient is a 57 year old assigned female at presenting to the emergency department with epigastric pain. Patient states that she has had this epigastric pain for 3 days. Labs ordered. Patient placed back in the waiting room pending room availability and results. Medications Administered Discontinued Medications Generic Name Dose Route Start Last Admin Trade Name Freq PRN Reason Stop Dose Admin Famotidine 20 mg 08/09/22 18:51 08/09/22 18:58 Famotidine/Pf 20 Mg/2 Ml Vial IVPUSH 08/09/22 18:52 20 mg ONCE ONE Administration Sodium Chloride 1,000 mls @ 999 mls/hr 08/09/22 18:51 08/09/22 20:08 Ns IV 08/09/22 19:51 Infused .Q1H1M ONE Infusion Magnesium Sulfate 2 gm in 50 mls @ 100 mls/hr 08/09/22 22:08 08/09/22 23:47 Magnesium Sulfate/H2o IV 08/09/22 22:37 Infused ONCE ONE Infusion Ceftriaxone Sodium 1 gm/ 50 mls @ 100 mls/hr 08/09/22 22:09 08/09/22 23:14 Sodium Chloride IV 08/09/22 22:38 Infused ONCE ONE Infusion Morphine Sulfate 4 mg 08/09/22 19:39 08/09/22 20:07 Morphine Sulfate 4 Mg/Ml Cartridge IVPUSH 08/09/22 19:40 4 mg ONCE ONE Administration Protocol Ondansetron HCl 4 mg 08/09/22 18:51 08/09/22 18:58 Ondansetron Hcl 4 Mg/2 Ml Vial IVPUSH 08/09/22 18:52 4 mg ONCE ONE Administration Medical Decision Making Medical Decision Making [facility] Narrative: Patient with epigastric pain with acute nausea and vomiting ultrasound and CT scan negative for any acute pathology labs showed leukocytosis and urine showed a few WBCs will discharge patient home for PPI for gastritis and antibiotic for UTI Differential Diagnosis Differential Diagnoses: The differential diagnosis associated with the presentation includes Acute gastritis/pancreatitis/CBD stone/UTI/viral gastroenteritis Lab Data 08/09/22 18:55 08/09/22 18:54 Labs: Lab Results 08/09/22 08/09/22 08/09/22 Range/Units 18:54 18:54 18:55 WBC 16.7 H (4.8-10.8) X10*3/uL RBC 4.35 (4.20-5.50) X10*6/uL Hgb 12.9 (12.0-16.0) g/dl Hct 37.9 (37.0-47.0) % MCV 87.1 (80.0-98.0) fL MCH 29.7 (27.0-33.0) pg MCHC 34.0 (31.0-35.0) g/dl RDW 12.6 (11.0-16.0) % Plt Count 254 (160-400) X10*3/uL MPV 10.0 (9.4-12.3) fL Immature Gran % (Auto) 0.4 (0.0-0.4) % Neut % (Auto) 59.9 (45-73) % Lymph % (Auto) 28.8 (20-40) % [place] % (Auto) 8.2 (2-11) % Eos % (Auto) 2.3 (0-4) % Baso % (Auto) 0.4 (0-2) % Lymph # (Auto) 4.8 (1.2-4.9) X10*3/uL [place] # (Auto) 1.4 H (0.1-1.2) X10*3/uL Eos # (Auto) 0.4 (0.0-0.4) X10*3/uL Baso # (Auto) 0.1 (0.0-0.2) X10*3/uL Abs Immat Gran (auto) 0.06 H (0.00-0.03) X10*3/uL Absolute Neuts (auto) 10.0 H (2.0-8.3) x10*3/uL Absolute Nucleated RBC 0.000 (0.0-0.012) X10*3/uL Nucleated RBC % (auto) 0.0 (0.0-0.2) /100WBC Sodium 145 (135-145) mmol/L Potassium 3.4 (3.3-5.1) mmol/L Chloride 105 (96-108) mmol/L Carbon Dioxide 27 (22-29) mmol/L Anion Gap 16 (12-20) BUN 19 H (9-16) mg/dL Creatinine 0.89 (0.5-1.4) mg/dL Estim Creat Clear Calc 69.0 Estimated GFR > 60 Random Glucose 83 (60-115) mg/dL Calcium 9.5 D (8.4-10.2) mg/dL Magnesium 1.3 L* (1.6-2.6) mg/dL Total Bilirubin 1.7 H (0.0-1.0) mg/dL AST 20 (5-31) U/L ALT 23 (0-31) U/L Alkaline Phosphatase 92 (39-117) U/L Troponin I High Sens 2.7 (<3.5-17.0) ng/L Total Protein 6.5 (6.5-8.0) g/dL Albumin 3.9 (3.5-5.0) g/dL Lipase 14 (8-78) U/L Urine Color Urine Appearance Urine pH (5.0-9.0) Ur Specific [place] (1.005-1.025) Urine Protein (Neg-Trace) mg/dL Urine Glucose (UA) (Negative) mg/dL Urine Ketones (Negative) mg/dL Urine Blood (Negative) Urine Nitrite (Negative) Ur Leukocyte Esterase (Negative) Urine RBC (0-2) /HPF Urine WBC (0-5) /HPF Ur Squamous Epith Cells (0-2) /HPF Calcium Oxalate Crystal Urine Bacteria (None Seen) Hyaline Casts (0-2) /LPF 08/09/22 Range/Units 20:10 WBC (4.8-10.8) X10*3/uL RBC (4.20-5.50) X10*6/uL Hgb (12.0-16.0) g/dl Hct (37.0-47.0) % MCV (80.0-98.0) fL MCH (27.0-33.0) pg MCHC (31.0-35.0) g/dl RDW (11.0-16.0) % Plt Count (160-400) X10*3/uL MPV (9.4-12.3) fL Immature Gran % (Auto) (0.0-0.4) % Neut % (Auto) (45-73) % Lymph % (Auto) (20-40) % [place] % (Auto) (2-11) % Eos % (Auto) (0-4) % Baso % (Auto) (0-2) % Lymph # (Auto) (1.2-4.9) X10*3/uL [place] # (Auto) (0.1-1.2) X10*3/uL Eos # (Auto) (0.0-0.4) X10*3/uL Baso # (Auto) (0.0-0.2) X10*3/uL Abs Immat Gran (auto) (0.00-0.03) X10*3/uL Absolute Neuts (auto) (2.0-8.3) x10*3/uL Absolute Nucleated RBC (0.0-0.012) X10*3/uL Nucleated RBC % (auto) (0.0-0.2) /100WBC Sodium (135-145) mmol/L Potassium (3.3-5.1) mmol/L Chloride (96-108) mmol/L Carbon Dioxide (22-29) mmol/L Anion Gap (12-20) BUN (9-16) mg/dL Creatinine (0.5-1.4) mg/dL Estim Creat Clear Calc Estimated GFR Random Glucose (60-115) mg/dL Calcium (8.4-10.2) mg/dL Magnesium (1.6-2.6) mg/dL Total Bilirubin (0.0-1.0) mg/dL AST (5-31) U/L ALT (0-31) U/L Alkaline Phosphatase (39-117) U/L Troponin I High Sens (<3.5-17.0) ng/L Total Protein (6.5-8.0) g/dL Albumin (3.5-5.0) g/dL Lipase (8-78) U/L Urine Color Yellow Urine Appearance Clear Urine pH 5.5 (5.0-9.0) Ur Specific [place] 1.015 (1.005-1.025) Urine Protein Negative (Neg-Trace) mg/dL Urine Glucose (UA) Negative (Negative) mg/dL Urine Ketones Trace (Negative) mg/dL Urine Blood Negative (Negative) Urine Nitrite Negative (Negative) Ur Leukocyte Esterase Small (1+) H (Negative) Urine RBC 0-2 (0-2) /HPF Urine WBC 6-10 H (0-5) /HPF Ur Squamous Epith Cells 6-10 (0-2) /HPF Calcium Oxalate Crystal Present Urine Bacteria Trace (None Seen) Hyaline Casts 6-10 (0-2) /LPF Discharge Plan Discharge Clinical Impression: Acute gastritis, UTI (urinary tract infection) Patient Disposition: Home, Self-Care Instructions: Gastritis (ED), Urinary Tract Infection in Women (ED) Additional Instructions: CT scan is negative for any acute pathology in the abdomen symptoms likely from gastritis and UTI Drink plenty of fluids avoid fried food Take medication as prescribed and follow with PCP La tomograf?a computarizada es negativa para cualquier patolog?a aguda en el abdomen, s?ntomas probables de gastritis e infecci?n urinaria Migdalia muchos l?quidos evite los alimentos fritos [place] los medicamentos seg?n lo prescrito y siga con PCP Prescriptions: New pantoprazole [Protonix] 40 mg tablet,delayed release (DR/EC) 40 mg PO DAILY Qty: 30 0RF sucralfate 1 gram tablet 1 g PO BID Qty: 60 0RF cefuroxime axetil 250 mg tablet 250 mg PO BID 7 Days Qty: 14 0RF No Action metformin 1,000 mg tablet 1 tab PO BID hydrochlorothiazide 25 mg tablet 1 tab PO DAILY atorvastatin 80 mg Tablet 80 mg PO DAILY Qty: 30 0RF Interventions: ED Discharge Assessment Last Done: 08/10/22 00:00 Discharge Date/Time: 08/10/22 00:00 Print Language: Pashto
--- NOTE | 2022-08-09 18:31 | ECG_ITS ---
Test Reason : EPIGASTRIC PAIN Blood Pressure : / mmHG Vent. Rate : 102 BPM Atrial Rate : 102 BPM P-R Int : 170 ms QRS Dur : 082 ms QT Int : 338 ms P-R-T Axes : 048 -06 053 degrees QTc Int : 440 ms Sinus tachycardia Inferior infarct (cited on or before 11-DEC-2016) Possible Anterior infarct (cited on or before 11-DEC-2016) Abnormal ECG When compared with ECG of 13-JAN-2020 09:43, No significant change was found Referred By: Teresita Lazcano Electronically Signed By:Leonard Aldridge
[2022-08-09] MEDS: Famotidine/PF 20 MG/2 ML VIAL IVPUSH (18:58)
[2022-08-09] MEDS: ondansetron HCL 4 MG/2 ML VIAL IVPUSH (18:58)
[2022-08-09] MEDS: 0.9 % Sodium Chloride 1,000 ML 999 ML IV (18:59)
[2022-08-09 19:01] LABS: MANUAL DIFF FLAG NO
--- NOTE | 2022-08-09 19:02 | PC.NURSE ---
assumed care of patient at 1900 - pt reporting 10/10 epigastric pain that radiates up her chest and feels like a burning acidic sensation. reports nausea and vomiting after eating. pain has been there for 4 days. pt medicated per mar. at bedside. call siu with in reach.will CTM
[2022-08-09 19:03] LABS: Basophils Absolute Auto 0.1 X10*3/uL (0.0-0.2); Basophils Percent Auto 0.4 % (0-2); Eosinophils Absolute Auto 0.4 X10*3/uL (0.0-0.4); Eosinophils Percent Auto 2.3 % (0-4); Hematocrit 37.9 % (37.0-47.0); Hemoglobin 12.9 g/dl (12.0-16.0); Imm Gran Abs Auto 0.06 X10*3/uL (0.00-0.03); Imm Gran Pct Auto 0.4 % (0.0-0.4); Lymphocytes Absolute Auto 4.8 X10*3/uL (1.2-4.9); Lymphocytes Percent Auto 28.8 % (20-40); Mean Corpuscular Hemoglobin 29.7 pg (27.0-33.0); Mean Corpuscular Volume 87.1 fL (80.0-98.0); Monocytes Absolute Auto 1.4 X10*3/uL (0.1-1.2); Monocytes Percent Auto 8.2 % (2-11); Neutrophils Percent Auto 59.9 % (45-73); Platelet Count 254 X10*3/uL (160-400); Red Blood Count 4.35 X10*6/uL (4.20-5.50); Red Cell Distribution Width 12.6 % (11.0-16.0); White Blood Count 16.7 X10*3/uL (4.8-10.8)
[2022-08-09 19:26] LABS: Troponin-I High Sensitivity 2.7 ng/L (<3.5-17.0)
[2022-08-09 19:29] LABS: Alanine Aminotransferase 23 U/L (0-31); Albumin Level 3.9 g/dL (3.5-5.0); Alkaline Phosphatase 92 U/L (39-117); Anion Gap 16 (12-20); Aspartate Amino Transferase 20 U/L (5-31); Bilirubin Total 1.7 mg/dL (0.0-1.0); Blood Urea Nitrogen 19 mg/dL (9-16); Calcium 9.5 mg/dL (8.4-10.2); Carbon Dioxide 27 mmol/L (22-29); Chloride 105 mmol/L (96-108); Estimated Glomerular Filt Rate > 60; Glucose Random 83 mg/dL (60-115); Magnesium 1.3 mg/dL (1.6-2.6); Potassium 3.4 mmol/L (3.3-5.1); Sodium 145 mmol/L (135-145); Total Protein 6.5 g/dL (6.5-8.0)
[2022-08-09 19:51] LABS: Lipase 14 U/L (8-78)
[2022-08-09] MEDS: Morphine Sulfate 4 MG/ML CARTRIDGE IVPUSH (20:07)
[2022-08-09 20:20] LABS: Appearance Urine Clear; Color Urine Yellow; Glucose Urine UA Negative (Negative); Leukocyte Esterase Urine Small (1+) (Negative); Nitrite Urine Negative (Negative); PH 5.5 (5.0-9.0); Specific Gravity - Urine 1.015 (1.005-1.025); UMIC TRIGGER UACC YES; Urine Blood Negative (Negative); Urine Ketones Trace mg/dL (Negative); Urine Protein Negative (Neg-Trace)
[2022-08-09 20:36] LABS: Bacteria Urine Trace (None Seen); Calcium Oxalate Crystals Urine Present; RBC Urine 0-2 /HPF (0-2); UACC Culture Trigger YES
[2022-08-09 21:53] VITALS: BP 108/57; PULSE 88; RESP 19; TEMP 36.8; O2SAT 98
[2022-08-09] MEDS: cefTRIAXone sodium 1 GM in 0.9 % Sodium Chloride 50 ML IV (22:32)
[2022-08-09] MEDS: Magnesium Sulfate/H2O 2 GM/50 ML PIGGYBACK IV (23:16)
== END 2022-08-10 | disposition home or self-care (01) ==
PROVIDERS: Physician Assistant Medical; Emergency Provider Internal Medicine; PCP Internal Medicine
DX: N39.0 Urinary tract infection, site not specified (principal); K29.00 Acute gastritis without bleeding; R00.0 Tachycardia, unspecified; R10.13 Epigastric pain; R10.11 Right upper quadrant pain; Z79.899 Other long term (current) drug therapy
CPT/HCPCS: 36415; 74176; 76705; 80053; 81001; 83690; 83735; 84484; 85025; 87086; 93005; 99284; 99285; J0696; J2270; J2405; J3475

== ENCOUNTER 2022-11-11 10:06 | Outpatient (REF) | payer MEDICARE, MEDICAID, SELFPAY ==
[2022-11-11 12:02] LABS: Creatinine Urine 79.26 mg/dL
[2022-11-11 12:29] LABS: Anion Gap 14 (12-20); Blood Urea Nitrogen 11 mg/dL (9-16); Carbon Dioxide 30 mmol/L (22-29); Chloride 104 mmol/L (96-108); Estimated Glomerular Filt Rate > 60; Glucose Random 132 mg/dL (60-115); Potassium 4.3 mmol/L (3.3-5.1); Sodium 144 mmol/L (135-145); Vitamin D 25-OH Total 52.5 ng/mL (>30)
[2022-11-11 12:30] LABS: Cholesterol 100 mg/dL; HDL Cholesterol 35 mg/dL; LDL Cholesterol Calculated 44 mg/dl; Triglycerides 108 mg/dL
[2022-11-11 12:41] LABS: Reflex LDLD? No
== END 2022-11-11 10:07 | disposition home or self-care (01) ==
LOC: HO.HHCL 10:06
PROVIDERS: Visit Provider Internal Medicine
DX: E11.65 Type 2 diabetes mellitus with hyperglycemia (principal); Z79.4 Long term (current) use of insulin; E55.9 Vitamin D deficiency, unspecified; I10 Essential (primary) hypertension; E78.00 Pure hypercholesterolemia, unspecified
CPT/HCPCS: 36415; 80048; 80061; 82043; 82306

== ENCOUNTER 2022-11-11 12:53 | Outpatient (REF) | payer MEDICARE, MEDICAID, SELFPAY | END 2022-11-11 12:54 | disposition home or self-care (01) | LOC: HO.HAP 12:53 | PROVIDERS: Visit Provider Internal Medicine | DX: H90.3 Sensorineural hearing loss, bilateral (principal) | CPT/HCPCS: 92592 ==

== ENCOUNTER 2022-11-26 18:46 | Emergency (ER) | payer MEDICARE, MEDICAID, SELFPAY ==
--- NOTE | ~2022-11-26 | XR_ITS ---
EXAMINATION: XR SHOULDER, RIGHT CLINICAL INFORMATION: Right shoulder pain COMPARISON: None available. TECHNIQUE: AP external rotation, Grashey, scapular Y, and axillary views of the right shoulder. FINDINGS: There is no fracture or dislocation. Calcification overlying the greater tuberosity suggesting calcific tendinosis. Soft tissues are otherwise unremarkable. Otherwise right lung is unremarkable. XR/XR shoulder RT min 2V IMPRESSION: Calcification overlying the greater tuberosity suggesting calcific tendinosis.
[2022-11-26 19:06] VITALS: BP 137/93; PULSE 94; RESP 18; TEMP 36.8; O2SAT 97; BMI 30.2
--- NOTE | 2022-11-26 19:19 | ED.GENADULT ---
HPI - General Adult General Chief complaint: Extremity Injury, Upper Stated complaint: fall upper right arm pain Time Seen by Provider: 11/26/22 19:26 Source: patient and family Mode of arrival: ambulatory Limitations: language barrier (Angolan-speaking director medical science utilized) History of Present Illness HPI narrative: Patient is a 57-year-old female who presents emergency department for evaluation of atraumatic right shoulder pain x3 months. She reports that it is most painful at night, she has a tense spasming type pain. Pain is exacerbated with movement of the arm. Denies numbness or tingling. Denies fevers chills redness or rashes. Related Data Home Medications Medication Instructions Recorded Confirmed hydrochlorothiazide 25 mg tablet 1 tab PO DAILY 01/13/20 01/13/20 metformin 1,000 mg tablet 1 tab PO BID 01/13/20 01/13/20 amlodipine 5 mg tablet 5 mg PO QAM 03/28/20 aspirin 325 mg tablet,delayed 325 mg PO BEDTIME 03/28/20 release blood sugar diagnostic #10 ea 03/28/20 ergocalciferol (vitamin D2) 1,250 1,250 mcg PO QWEEK 03/28/20 mcg (50,000 unit) capsule insulin aspart U-100 100 unit/mL unit subcut 03/28/20 (3 mL) subcutaneous pen insulin glargine 100 unit/mL (3 35 unit subcut DAILY 03/28/20 mL) subcutaneous pen lancets 33 gauge #100 ea 03/28/20 losartan 50 mg tablet 50 mg PO DAILY 03/28/20 pen needle, diabetic 32 gauge x #50 ea 03/28/20/32 Previous Rx's Medication Instructions Recorded atorvastatin 80 mg tablet 80 mg PO DAILY #30 tabs 01/16/20 cefuroxime axetil 250 mg tablet 250 mg PO BID 7 days #14 tabs 08/09/22 pantoprazole 40 mg tablet,delayed 40 mg PO DAILY #30 tabs 08/09/22 release (Protonix) sucralfate 1 gram tablet 1 g PO BID #60 tabs 08/09/22 lidocaine 5 % topical patch 1 patch topical DAILY #15 ea 11/26/22 (Lidoderm) Allergies Allergy/AdvReac Type Severity Reaction Status Date / Time No Known Allergies Allergy Mild NOT Verified 11/26/22 19:20 APPLICABLE Review of Systems Review of Systems: Yes all other systems are reviewed and are negative [facility] Past Medical History Attestation statement: The following information was validated with the patient. Source: old records reviewed Medical History Diabetes [place] (hard of hearing) Hypertension Subarachnoid hemorrhage Uncontrolled diabetes mellitus Surgical History Hx of cholecystectomy Family History Family History Unknown Unknown family medical history Social History Social History Household Members: Spouse Housing: House Do you presently have visiting nurse or other home services: No Alcohol intake: never Advance Directives: No Advance Directives Information Provided: No service: No Current occupational status: unemployed Physical Exam ED Vital Signs: Vital Signs - 24 hr 11/26/22 19:06 Temperature 98.3 F Pulse Rate 94 Respiratory Rate 18 Blood Pressure 137/93 H Pulse Oximetry 97 Oxygen Delivery Method Room Air BMI result Body Mass Index 30.2 Appearance: Alert.?Oriented to person, place and time. No acute distress.?Normal affect. Neck: Normal inspection.? Neck supple.?? CVS: Heart sounds normal. Normal heart rate and rhythm.? Pulses normal.?? Respiratory: No respiratory distress.? Lung sounds clear to auscultation bilaterally?? Abdomen: Soft and non-tender. Normoactive bowel sounds. ? Skin: Skin warm and dry.? Normal skin color.? Extremities: No extremity edema.? 2+ radial pulse bilaterally. Decreased AROM to right shoulder, diffuse tenderness to palpation. No erythema, warmth, rash. Neuro: Moves all extremities spontaneously. Sensation intact bilaterally Ambulates with normal steady gait. Course Course Course Narrative: RME: 57 yodenis jefferson presents to the ED for right shoulder pain for 3 months. patient denies any trauma. patient denies any swelling, redness, bluish/black discoloration, red streaks, fever, or chills. [place] xray ordered Medications Administered Discontinued Medications Generic Name Dose Route Start Last Admin Trade Name Freq PRN Reason Stop Dose Admin Ibuprofen 800 mg 11/26/22 19:18 11/26/22 19:58 Ibuprofen 800 Mg Tablet PO 11/26/22 19:19 800 mg ONCE ONE Administration Medical Decision Making Medical Decision Making MDM Narrative: Patient is a 57-year-old female who presents emergency department for evaluation of right shoulder pain x3 months, atraumatic in nature. The extremity is neurovascularly intact distally. Examination is not consistent with septic arthritis, she is afebrile. Reviewed XR imaging reveals a calcific tendinitis. She is a diabetic with uncontrolled glucose levels, and is on aspirin s/p CVA, would avoid NSAIDs/steroids in this patient. Advised outpatient follow-up with her primary care provider for course of physical therapy, in addition provided contact information for orthopedics for further evaluation and treatment. Discussed worrisome signs and symptoms that would warrant re-evaluation in the emergency department. All questions answered. Stable for discharge. Differential Diagnosis Differential Diagnoses: The differential diagnosis associated with the presentation includes (As noted above) Independent Interpretation I performed an independent interpretation of an: Plain X-Ray (I personally interpreted XR imaging of the right shoulder and agree with radiologist impression) Independent Historian Clinical information obtained from an independent historian. History obtained from or confirmed by: Spouse (Who confirms history) External Record Review External record reviewed: Outpatient record Prescription Management I considered prescription management with: Pain Medication (Acetaminophen) Discharge Plan Discharge Clinical Impression: Calcific tendinitis of right shoulder Patient Disposition: Home, Self-Care Instructions: Calcific Tendinitis (ED) Additional Instructions: You can take Tylenol 500 mg, 2 tablets (1,000mg) every 4-6 hours as needed for pain, but not to exceed 3 doses daily (3,000mg). You may apply ice/heat to the area a few times daily as needed. Trial of Lidoderm patch. Contact primary care provider to arrange for a follow-up visit and discussed possible course of physical therapy. Have also provided contact information for the orthopedic office, please call their office 1st thing tomorrow morning to arrange for evaluation ? Prescriptions: New lidocaine [Lidoderm] 5 % adhesive patch,medicated 1 patch topical DAILY Qty: 15 0RF Rx Instructions: leave on most painful area for up to 12 hrs No Action metformin 1,000 mg tablet 1 tab PO BID hydrochlorothiazide 25 mg tablet 1 tab PO DAILY atorvastatin 80 mg Tablet 80 mg PO DAILY Qty: 30 0RF pantoprazole [Protonix] 40 mg tablet,delayed release (DR/EC) 40 mg PO DAILY Qty: 30 0RF sucralfate 1 gram tablet 1 g PO BID Qty: 60 0RF cefuroxime axetil 250 mg tablet 250 mg PO BID 7 Days Qty: 14 0RF Referrals: Hudson Rodriguez MD [Physician] - Interventions: ED Discharge Assessment Last Done: 11/26/22 20:38 Discharge Date/Time: 11/26/22 20:43 Print Language: Angolan
[2022-11-26] MEDS: Ibuprofen 800 MG TABLET PO (19:58)
== END 2022-11-26 20:43 | disposition home or self-care (01) ==
PROVIDERS: Emergency Provider Student in an Organized Health Care Education/Training Program
DX: M75.31 Calcific tendinitis of right shoulder (principal); M25.511 Pain in right shoulder; E11.9 Type 2 diabetes mellitus without complications; I10 Essential (primary) hypertension; Z79.82 Long term (current) use of aspirin; Z79.4 Long term (current) use of insulin; Z79.899 Other long term (current) drug therapy; Z90.49 Acquired absence of other specified parts of digestive tract
CPT/HCPCS: 73030; 99283

== ENCOUNTER 2022-12-23 10:56 | Outpatient (REF) | payer MEDICARE, MEDICAID, SELFPAY ==
--- NOTE | 2022-12-24 09:07 | MHC.AU.HA3 ---
Hearing Instrument Follow-Up- Binaural Date of Visit: 12/23/22 Left Ear: Make, Model, Color, Serial Number: Maria Antonia Chavarria [id number]-[id number] SN: [id number] Color: [place] Opener Tender Repair Warranty: 08/27/2017 Opener Tender Loss and Damage Warranty: 08/27/2017 Battery Size: 13 Earmold/Dome/CShell/SlimTip: [place] canal mold Dispensed By: [facility] Date of Fittin06/13/2015 Follow-Up Summary: Juanis reported that her hearing aid has been intermittent. Tubing already hard, discolored, and full of moisture/debris. Cleaned hearing aid, vacuumed microphones, ran through dehumidifier. Replaced tubing. Did not hear intermittency via listening check; however, Juanis continued to report that the hearing aid sounded weak/intermittent. Discussed age the of the hearing aid and that she is eligible for a new one. Described the process for getting a new hearing aid starting with obtaining a doctor's order for an updated hearing test. Juanis reported that she is going to [place] in January and needs a functioning hearing aid for that time. Programmed a loaner with noted improvement in sound quality in office. Juanis will use the loaner hearing aid for now and will obtain a doctor's order for a hearing test to start the process for a new hearing aid when she returns from [place]. *Interpreted by [facility] videogame designerVelvet. Per Velvet, difficult to understand patient's speech and follow along with her train of thought. Recommendations: Obtain doctor's order for hearing test to begin the process for a new hearing aid. Diagnosis Code(s): Primary Diagnosis: H90.3 Bilateral Sensorineural Hearing Loss Signature: Provider: Dana Magallon, [facility]
== END 2022-12-23 10:57 | disposition home or self-care (01) ==
LOC: HO.HAP 10:56
PROVIDERS: Visit Provider Internal Medicine
DX: Z46.1 Encounter for fitting and adjustment of hearing aid (principal); H90.3 Sensorineural hearing loss, bilateral
CPT/HCPCS: 92592; 99499

== ENCOUNTER 2023-01-12 13:12 | Outpatient (REF) | payer MEDICARE, MEDICAID, SELFPAY ==
--- NOTE | ~2023-01-12 | XR_ITS ---
EXAMINATION: XR HUMERUS, RIGHT CLINICAL INFORMATION: Bicipital tendinitis COMPARISON: 11/26/2022 TECHNIQUE: AP and lateral views of the right humerus. FINDINGS: The bones and soft tissues are normal. No fracture. Imaged portions of the shoulder and elbow are unremarkable. There is ill-defined calcification adjacent to the greater tuberosity most likely calcified tendinitis. XR/XR humerus RT IMPRESSION: Calcified tendinopathy of rotator cuff
--- NOTE | ~2023-01-12 | XR_ITS ---
EXAMINATION: XR ELBOW, RIGHT CLINICAL INFORMATION: Bicipital tendinitis. COMPARISON: 02/14/2014 TECHNIQUE: AP, lateral, and oblique views of the right elbow. FINDINGS: The bones and soft tissues are normal. Seen on the previous examination 0.5 cm lucency in the olecranon is stable and most likely benign. No fracture or joint effusion. Alignment is anatomic. Joint spaces are maintained. XR/XR elbow RT 2V IMPRESSION: No acute abnormalities.
== END 2023-01-12 13:13 | disposition home or self-care (01) ==
LOC: HO.XRAY 13:12
PROVIDERS: PCP Internal Medicine; Visit Provider Internal Medicine
DX: M75.21 Bicipital tendinitis, right shoulder (principal); M25.521 Pain in right elbow
CPT/HCPCS: 73060; 73070

== ENCOUNTER 2023-01-25 09:21 | Outpatient (REF) | payer MEDICARE, MEDICAID, SELFPAY | END 2023-01-25 09:22 | disposition home or self-care (01) | LOC: HO.HAP 09:21 | PROVIDERS: Visit Provider Internal Medicine | DX: Z13.89 Encounter for screening for other disorder (principal) ==

== ENCOUNTER 2023-01-25 10:32 | Outpatient (AMB) | payer MEDICARE, MEDICAID, SELFPAY ==
--- NOTE | 2023-01-25 10:35 | A.OFFVIS_ITS ---
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 Patient reports ongoing pain for 2 months. She states when she lays on the right side it causes her a lot of pain. Patient has K - tape on her shoulder and she is unsure if it is working. 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 She states she has throbbing pain in her right shoulder which is aggravated with laying on her right side. She on her shoulder. She is working with physical therapy is using K-tape which she is unsure if provides her relief. [facility] Medical History (Updated 01/25/23 @ 11:07 by Ladan Cifuentes PA-C) Calcific tendinitis of right shoulder Uncontrolled diabetes mellitus Subarachnoid hemorrhage Diabetes [place] (hard of hearing) Hypertension Surgical History Hx of cholecystectomy Family History Unknown Unknown family medical history Social History Household Members: Spouse Housing: House Do you presently have visiting nurse or other home services: No Alcohol intake: never service: No Current occupational status: unemployed Review of Systems Const All systems reviewed & are unremarkable except as noted in HPI and below Physical Exam Vital Signs: BMI result Body Mass Index 30.0 Const General: cooperative, healthy appearing, comfortable, no acute distress, well developed and alert Orientation/consciousness: patient oriented x3 HEENT Head: Yes normal to inspection, Yes normocephalic and Yes atraumatic Eyes General: appearance normal, both eyes and all related structures Resp Effort & Inspection: normal respiratory effort and able to speak in complete sentences Cardio Rate: regular rate Peripheral pulses: Peripheral pulses 2+ throughout GI Palpation (GI): Soft to palpation Skin Lesions: no lesions Rashes: no rashes Neuro General: patient oriented x3 Extrem Other: Right shoulder normal to inspection. Tenderness over the bicipital groove and along the deltoid region of the shoulder. Forward flexion to 175, external rotation to 90, internal rotation to S1. 5/5 RTC strength. Positive Izquierdo. NVI. Results Reviewed Results Reviewed: xrays of the right shoulder obtained on 11/26/22 : IMPRESSION: Calcification overlying the greater tuberosity suggesting calcific tendinosis. Assessment & Plan Assessment & Plan (1) Calcific tendinitis of right shoulder: Code(s): M75.31 - Calcific tendinitis of right shoulder Plan We discussed options which include PT, NSAIDs and injections. The patient will defer on the injection today and proceed with PT and NSAIDs. If symptoms persist, the patient will contact me for an injection, otherwise, PRN. Orders: Orders PT Evaluation and Treatment Today M75.31 - Calcific tendinitis of right shoulder Patient Instructions: Scribed for Ladan Cifuentes PA-C, by Rmabo Sharma medical record librarians teacher, on 01/25/2023 at 10:30 AM EST. ILadan PA-C, have personally reviewed and agree with the information entered by the scribe. Coding Level of Care Code New Pt Level 3 (94061) Diagnoses Calcific tendinitis of right shoulder M75.31
== END 2023-01-25 11:26 | disposition home or self-care (01) ==
PROVIDERS: PCP Internal Medicine; Visit Provider Physician Assistant
DX: M75.31 Calcific tendinitis of right shoulder (principal)
CPT/HCPCS: 99203

== ENCOUNTER → 2023-01-25 10:32 | Outpatient (BNVA) | payer MEDICARE, MEDICAID, SELFPAY | PROVIDERS: PCP Internal Medicine; Visit Provider Physician Assistant | DX: M75.31 Calcific tendinitis of right shoulder (principal) | CPT/HCPCS: 99202 ==

== ENCOUNTER 2023-01-27 15:18 | Outpatient (REF) | payer MEDICARE, MEDICAID, SELFPAY | END 2023-01-27 15:19 | disposition home or self-care (01) | LOC: HO.HAP 15:18 | PROVIDERS: Visit Provider Internal Medicine | DX: Z13.89 Encounter for screening for other disorder (principal) ==

== ENCOUNTER 2023-02-16 10:00 | Outpatient (RCR) | payer MEDICARE, MEDICAID, SELFPAY | END 2023-04-12 10:05 | disposition home or self-care (01) | LOC: HO.PT 10:00 | PROVIDERS: PCP Internal Medicine; Visit Provider Internal Medicine | DX: M75.21 Bicipital tendinitis, right shoulder (principal) | CPT/HCPCS: 97035; 97140; 97161; 97530 ==

== ENCOUNTER 2023-03-02 12:35 | Outpatient (REF) | payer MEDICARE, MEDICAID, SELFPAY | END 2023-03-02 12:36 | disposition home or self-care (01) | LOC: HO.HAP 12:35 | PROVIDERS: Visit Provider Internal Medicine | DX: Z13.89 Encounter for screening for other disorder (principal) ==

== ENCOUNTER 2023-03-03 12:06 | Outpatient (REF) | payer MEDICARE, MEDICAID, SELFPAY | END 2023-03-03 12:07 | disposition home or self-care (01) | LOC: HO.HAP 12:06 | PROVIDERS: Visit Provider Internal Medicine | DX: Z13.89 Encounter for screening for other disorder (principal) ==

== ENCOUNTER 2023-04-22 13:51 | Outpatient (REF) | payer MEDICARE, MEDICAID, SELFPAY ==
--- NOTE | 2023-04-23 07:49 | MHC.AU.MED ---
Medical Clearance for Hearing Instrumentation Date: 04/22/23 Patient Name: Juanis Brown Date of : 1965 Primary Care Provider: Cara Carlin MD We have seen your patient on 04/22/23 and have determined that they are a candidate for amplification (See accompanying report). Specifically, they would benefit from: Hearing aid use in the left ear There is a statute that addresses Medical Evaluation Requirements prior to fitting a patient with a hearing aid. According to [place] statute 265 CMR:6.03(1), (a) General. Except as provided in 265 CMR 6.03(1)(b), a solder leveler printed circuit boards shall not sell a hearing aid unless the prospective user has presented to the solder leveler printed circuit boards a written statement signed by a licensed physician that states that the patient's hearing loss has been medically evaluated and the patient may be considered a candidate for a hearing aid. The medical evaluation must have taken place within the preceding six months. Please note: Due to the [place] Statute referenced above, we cannot accept a signature other than that of a licensed physician. PORTAINER OPERATOR and PA signatures cannot be accepted. I am in agreement with the above recommendation. There is no medical contraindication for hearing instrumentation. Physician Signature Date Physician Name (Printed)
--- NOTE | 2023-04-23 08:14 | MHC.AU.HA1 ---
Hearing Aid Evaluation Date of Visit: 04/22/23 Metal Mockup Maker Used: Persian- In Person Historical Information: Description of Hearing: Right Ear: Profound hearing loss Left Ear: Severe to profound hearing loss Current personal amplification information: Phonak Aura V50-SP BTE fit May 2015 - left ear Summary: Juanis is a long-time hearing aid user. Her current hearing aid is reportedly intermittent/weak and she has been using an [facility] loaner device since November 2022. She is ready to pursue a new hearing aid. Juanis inquired about a smaller hearing aid for vanity and due to discomfort behind her pinna. Discussed need for power device due to severity of hearing loss. Showed her a demo Aura L-UP device. Although hesitant, she was agreeable to trialing this style. Discussed different size battery (new 675 vs current 13). Will use current ear mold as it is just over one years old. *Interpreted by [facility] plate gaugerRafael. Per Rafael, difficult to understand Juanis's speech and train of thought. Hearing Aid Prescription: Based on the individual?s shared listening needs, communication environments, dexterity, desire for connectivity, and personal preferences, the following prescription for amplification has been made: Left ear: Make, Model, Color: Phonak Aura L70-UP Color: Graphite Powell Battery Size: 675 Type of Earmold/Dome/CShell/SlimTip: Westone canal mold Plan of Care: Patient wishes to purchase hearing aids as prescribed Action Taken/Action Needed: Medical Clearance to be requested from PCP/ENT. Hearing Instrument Fitting to be scheduled when materials arrive Primary Diagnosis: H90.3 Bilateral Sensorineural Hearing Loss Signature: Provider: Dana Magallon, [facility]
== END 2023-04-22 13:52 | disposition home or self-care (01) ==
LOC: HO.SH 13:51
PROVIDERS: Visit Provider Internal Medicine
DX: Z01.118 Encounter for examination of ears and hearing with other abnormal findings (principal); Z46.1 Encounter for fitting and adjustment of hearing aid; H90.3 Sensorineural hearing loss, bilateral
CPT/HCPCS: 92552; 92555; 92590; V5266

== ENCOUNTER 2023-05-14 08:36 | Outpatient (REF) | payer MEDICARE, MEDICAID, SELFPAY ==
--- NOTE | 2023-05-14 11:12 | MHC.AU.HA2 ---
Hearing Instrument Fitting- Adult- Binaural Date of Visit: 05/14/23 Tube Heater [place] [facility] [place]erpreter, Marlin Hearing Instruments Dispensed: Left Ear: Make, Model, Color, Serial Number: Maria Antonia Chavarria L70-UP Color: Graphite Powell S#[id number] Chromium Plater Repair Warranty: 05/29/2026 Chromium Plater Loss and Damage Warranty: 05/29/2026 [facility] Service Plan: 05/14/2024 Battery Size: 675 Earmold/Dome/CShell/SlimTip: Westone canal mold Summary of Fitting: Pt arrived early to appt and an [employer] conservation laborer was not able to get here until about 10 minutes after start time so pt was somewhat frustrated by the wait. In-person translation needed for this patient. Fit with and oriented to Phonak Aura L70 UP left ear. Returned loaner aid. Retubed and swapped mold to her new aid. Verified to DSL 5 for soft speech. Lost connection with Free-fit. Need to run average speech and MPO at follow up. Good subjective comfort and benefit. Juanis would like new EM due to discoloration of the one she is currently using. Will order from [employer] from impression on file as it is just over a year old. Reviewed battery changing- patient is used to 13, now using 675. Recommendations: Recommendations: Hearing instrument care and maintenance were discussed and practiced. Please call our clinic with any questions or concerns. Recommendations (Other): Follow up in two weeks, dispense new EM. Diagnosis Code(s): Primary Diagnosis: H90.3 Bilateral Sensorineural Hearing Loss Signature: Provider: Dana Nicholson, [facility]
== END 2023-05-14 08:37 | disposition home or self-care (01) ==
LOC: HO.HAP 08:36
PROVIDERS: Visit Provider Internal Medicine
DX: Z46.1 Encounter for fitting and adjustment of hearing aid (principal); H90.3 Sensorineural hearing loss, bilateral
CPT/HCPCS: V5011; V5020; V5241; V5257; V5266

== ENCOUNTER 2023-10-08 20:53 | Emergency (ER) | payer MEDICARE, MEDICAID, SELFPAY ==
--- NOTE | ~2023-10-08 | XR_ITS ---
EXAMINATION: XR CHEST CLINICAL INFORMATION: Hematemesis. COMPARISON: 01/13/2020. TECHNIQUE: Frontal view of the chest was obtained. FINDINGS: No significant abnormality is noted involving the heart, lungs, mediastinum, bony thorax or soft tissues. XR/XR chest 1V IMPRESSION: Unremarkable examination.
--- NOTE | ~2023-10-08 | CT_ITS ---
EXAMINATION: CT ABDOMEN AND PELVIS WITH CONTRAST CLINICAL INFORMATION: Epigastric pain COMPARISON: None available. TECHNIQUE: Multidetector volumetric images were obtained from the superior aspect of the liver through the pubic symphysis following administration 85 mL of Omnipaque 350 intravenous contrast. Sagittal and coronal reformatted images were obtained on the technologist's workstation. Oral contrast: No This CT examination was performed using dose optimization techniques as appropriate, variously including the following: *Automated exposure control *Adjustment of mA and/or kV according to patient size (this includes techniques or standardized protocols for targeted exams where dose is matched to indication/reason for exam; i.e. extremities or head) *Use of iterative reconstruction technique DLP: 696 mGy-cm FINDINGS: LUNG BASES: The visualized lung bases are unremarkable. LIVER, GALLBLADDER, AND BILIARY TREE: The liver is normal in size, shape, and attenuation. No focal hepatic lesion or biliary ductal dilatation is present. There has been a prior cholecystectomy. PANCREAS: Unremarkable. SPLEEN: Unremarkable. ADRENAL GLANDS: Unremarkable. KIDNEYS AND URETERS: The kidneys are normal in size, shape, and attenuation. No hydronephrosis, hydroureter, or calculi seen. No perinephric stranding. BLADDER: Unremarkable. GASTROINTESTINAL TRACT: The small and large bowel are unremarkable. The appendix is unremarkable. ABDOMINAL WALL: No significant hernia is appreciated. LYMPH NODES: Normal. VASCULAR: Unremarkable. PELVIC VISCERA: Unremarkable. OSSEOUS STRUCTURES: Unremarkable. CT/CT abdomen pelvis w IV con IMPRESSION: No significant abnormality. Fleischner guidelines were followed.
[2023-10-08 21:13] VITALS: BP 138/86; PULSE 95; RESP 18; TEMP 36.3; O2SAT 97; BMI 32.7
--- NOTE | 2023-10-08 21:17 | ECG_ITS ---
Test Reason : ABD PAIN Blood Pressure : / mmHG Vent. Rate : 097 BPM Atrial Rate : 097 BPM P-R Int : 172 ms QRS Dur : 082 ms QT Int : 360 ms P-R-T Axes : 019 -23 049 degrees QTc Int : 457 ms Normal sinus rhythm Inferior infarct (cited on or before 13-JAN-2020) Anterior infarct (cited on or before 11-DEC-2016) Abnormal ECG When compared with ECG of 09-AUG-2022 18:43, No significant change was found Referred By: Generic ED Physician Electronically Signed By:Leonard Aldridge
[2023-10-08 21:42] LABS: MANUAL DIFF FLAG NO
[2023-10-08 21:43] LABS: Basophils Absolute Auto 0.1 X10*3/uL (0.0-0.2); Basophils Percent Auto 0.6 % (0-2); Eosinophils Absolute Auto 0.2 X10*3/uL (0.0-0.4); Eosinophils Percent Auto 1.4 % (0-4); Hematocrit 41.3 % (37.0-47.0); Hemoglobin 14.1 g/dl (12.0-16.0); Imm Gran Abs Auto 0.05 X10*3/uL (0.00-0.03); Imm Gran Pct Auto 0.4 % (0.0-0.4); Lymphocytes Absolute Auto 4.5 X10*3/uL (1.2-4.9); Lymphocytes Percent Auto 33.4 % (20-40); Mean Corpuscular HGB Conc 34.1 g/dl (31.0-35.0); Mean Corpuscular Hemoglobin 30.1 pg (27.0-33.0); Mean Corpuscular Volume 88.1 fL (80.0-98.0); Mean Platelet Volume 9.9 fL (9.4-12.3); Monocytes Absolute Auto 0.9 X10*3/uL (0.1-1.2); Monocytes Percent Auto 6.6 % (2-11); Neutrophils Absolute Auto 7.8 x10*3/uL (2.0-8.3); Neutrophils Percent Auto 57.6 % (45-73); Platelet Count 260 X10*3/uL (160-400); Red Blood Count 4.69 X10*6/uL (4.20-5.50); Red Cell Distribution Width 12.7 % (11.0-16.0); White Blood Count 13.6 X10*3/uL (4.8-10.8)
[2023-10-08 21:45] LABS: Appearance Urine Clear; Color Urine Yellow; Glucose Urine UA Negative (Negative); Leukocyte Esterase Urine Small (1+) (Negative); Nitrite Urine Negative (Negative); PH 5.5 (5.0-9.0); Specific Gravity - Urine 1.025 (1.005-1.025); UMIC TRIGGER UACC YES; Urine Blood Negative (Negative); Urine Ketones Trace mg/dL (Negative); Urine Protein Negative (Neg-Trace)
[2023-10-08 21:54] LABS: Bacteria Urine 1+ (None Seen); RBC Urine 0-2 /HPF (0-2); Squamous Epithelial Cell Urine 0-2 /HPF (0-2); UACC Culture Trigger YES
[2023-10-08 21:59] LABS: Alanine Aminotransferase 40 U/L (0-31); Albumin Level 4.4 g/dL (3.5-5.0); Alkaline Phosphatase 78 U/L (39-117); Anion Gap 17 (12-20); Aspartate Amino Transferase 20 U/L (5-31); Bilirubin Direct 0.3 mg/dL (0.0-0.5); Bilirubin Total 1.6 mg/dL (0.0-1.0); Blood Urea Nitrogen 20 mg/dL (9-16); Calcium 9.7 mg/dL (8.4-10.2); Carbon Dioxide 28 mmol/L (22-29); Chloride 101 mmol/L (96-108); Creatinine Clr Calc Pharmacy 64.4; Estimated Glomerular Filt Rate > 60; Glucose Random 145 mg/dL (60-115); Lipase 16 U/L (8-78); Potassium 3.9 mmol/L (3.3-5.1); Sodium 142 mmol/L (135-145); Total Protein 7.1 g/dL (6.5-8.0)
--- OUTSIDE RECORDS SUMMARY | 2023-10-08 23:58 | XMS_ITS | Continuity of Care Document ---
Author Organization [facility] Address [address] [place] [address]- Care Team Providers Care Army Manager Name Role Phone Arnoldo Bryan MD Primary Care Physician Encounter [facility] Date(s): 01/22/21 - 02/21/21 [facility] [address] [place], [place] [address] Attending Physician: Admtr, Perla Admitting Physician: Admtr, Ar8 Referring Physician: Admtr, Ar8 Allergies, Adverse Reactions, Alerts Substance Reaction Severity Status NKA Active Medications Colace sodium 100 mg oral capsule 1 capsule = 100 mg, By Mouth, 2 times a day, PRN for constipation, # 60 capsule, 3 Refills, Maintenance, Capsule Start Date: 02/06/11 Status: Ordered ferrous sulfate 325 mg oral tablet 1 tablet = 325 mg, By Mouth, 2 times a day, # 60 tablet, 3 Refills, Maintenance, Tablet Start Date: 02/06/11 Status: Ordered Freestyle Rissa Monitor See Instructions, # 1 each, Refills 0, Tot. Refills 0, Maintenance, use to scan sensor E11.9, 01/22/21 12:25:00 EDT, FREESTYLE RISSA 2, Supply, 155, cm, 01/22/21 9:06:00 EDT, Height Start Date: 01/22/21 Status: Ordered Freestyle Rissa Sensor See Instructions, # 2 each, Refills 6, Tot. Refills 6, Maintenance, use as directed for Type 2 Diabetes Mellitus, replace sesnor every 14 days., 01/22/21 12:25:00 EDT, FREESTYLE RISSA 2, Supply, 155,cm, 01/22/21 9:06:00 EDT, Height Start Date: 01/22/21 Stop Date: 08/20/21 Status: Ordered hydralazine 25 mg oral tablet 1 tablet = 25 mg, By Mouth, 3 times a day, 0 Refills, Maintenance Start Date: 01/30/11 Status: Ordered ibuprofen 600 mg oral tablet 1 tablet = 600 mg, By Mouth, Every 6 hours, PRN as needed for pain, # 30 tablet, 0 Refills, Maintenance Start Date: 02/06/11 Status: Ordered Percocet-5/325 325 mg-5 mg oral tablet 1 tablet, By Mouth, Every 6 hours, PRN Pain, # 30 tablet, 0 Refills, Maintenance Start Date: 02/06/11 Status: Ordered Problem List Condition Effective Dates Status Health Status Inform ant Benign hypertension(Confirmed) Active Fibroid uterus(Confirmed) Active Premenopausal menorrhagia(Confirmed) Active Social History Social History Type Response Smoking Status Never smoker; Tobacc o user in household: No entered on: 09/08/16 Sex Medical Equipment Implanted Date:09/16/16Target Site:Arm Left Description Quantity MRI Company Model Nerve Connector, Suzyuard, 1 0 mm x 40mm, [employer] 1 [email or web address] Unknown ANCA:No Information Assigning Authority: FDA
[2023-10-09] MEDS: ondansetron HCL 4 MG/2 ML VIAL IVPUSH (00:05)
--- NOTE | 2023-10-09 00:05 | PC.NURSE ---
Pt actively vomiting. IV established, medicated with Zofran. Awaiting MD dowd.
--- NOTE | 2023-10-09 00:49 | ED_ITS ---
HPI - General Adult General Chief complaint: Abdominal Pain Stated complaint: Upper abd pain Time Seen by Provider: 10/09/23 00:36 Source: patient and family History of Present Illness ED Provider: Eduardo MURRAY narrative: 50-year-old female with past medical history of subarachnoid hemorrhage, diabetes, gastritis presenting for nausea, vomiting abdominal pain. Patient has been experiencing 3 days of nausea, vomiting and epigastric pain. Today she had an episode of emesis with small amount of blood. She denies chest pain, shortness of breath, fevers, chills, urinary symptoms Related Data Home Medications ?Medication ?Instructions ?Recorded ?Confirmed hydrochlorothiazide 25 mg tablet 1 tab PO DAILY 01/13/20 01/13/20 metformin 1,000 mg tablet 1 tab PO BID 01/13/20 01/13/20 amlodipine 5 mg tablet 5 mg PO QAM 03/28/20 aspirin 325 mg tablet,delayed 325 mg PO BEDTIME 03/28/20 release blood sugar diagnostic #10 ea 03/28/20 ergocalciferol (vitamin D2) 1,250 1,250 mcg PO QWEEK 03/28/20 mcg (50,000 unit) capsule insulin aspart U-100 100 unit/mL unit subcut 03/28/20 (3 mL) subcutaneous pen insulin glargine 100 unit/mL (3 35 unit subcut DAILY 03/28/20 mL) subcutaneous pen lancets 33 gauge #100 ea 03/28/20 losartan 50 mg tablet 50 mg PO DAILY 03/28/20 pen needle, diabetic 32 gauge x #50 ea 03/28/2032 Previous Rx's ?Medication ?Instructions ?Recorded atorvastatin 80 mg tablet 80 mg PO DAILY #30 tabs 01/16/20 cefuroxime axetil 250 mg tablet 250 mg PO BID 7 days #14 tabs 08/09/22 pantoprazole 40 mg tablet,delayed 40 mg PO DAILY #30 tabs 08/09/22 release (Protonix) sucralfate 1 gram tablet 1 g PO BID #60 tabs 08/09/22 lidocaine 5 % topical patch 1 patch topical DAILY #15 ea 11/26/22 (Lidoderm) cephalexin 500 mg capsule 500 mg PO TID UTI 7 days #21 caps 10/09/23 Allergies Allergy/AdvReac Type Severity Reaction Status Date / Time No Known Allergies Allergy Mild NOT Verified 10/08/23 21:14 APPLICABLE Review of Systems 2 Review of Systems: Constitutional : No Fever, No Chills ENT/Mouth : No oral swelling, No Hoarseness, No Swallowing Difficulty Eyes: No Eye Pain, No Swelling, No Redness Cardiovascular : No Chest Pain, No SOB Respiratory : No Cough, No Sputum, No Wheezing, No Smoke Exposure, No Dyspnea Gastrointestinal : Endorses nausea, vomiting and abdominal pain Genitourinary : No Dysuria, No Urinary Frequency, No Hematuria Musculoskeletal : No joint pain, No Myalgias, No Joint Swelling Skin : No Skin Lesions, positive rash Neuro : No Weakness, No Numbness, No Headache Psych : No Anxiety/Panic, No Depression Heme/Lymph: No Bruising, No Lymphadenopathy Endocrine : No Polyuria, No Polydipsia All other systems reviewed and are negative [facility] Past Medical History Medical History (Updated 10/09/23 @ 02:12 by Catalino Clark MD) Calcific tendinitis of right shoulder Uncontrolled diabetes mellitus Subarachnoid hemorrhage Diabetes [place] (hard of hearing) Hypertension Surgical History Hx of cholecystectomy Family History Family History Unknown Unknown family medical history Social History Social History Household Members: Spouse Housing: House Do you presently have visiting nurse or other home services: No Alcohol intake: never 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 Advance Directives: No Advance Directives Information Provided: Yes service: No Current occupational status: unemployed Physical Exam ED Vital Signs: Vital Signs - 24 hr 10/08/23 21:13 10/09/23 02:01 Temperature 97.4 F 98.3 F Pulse Rate 95 85 Respiratory Rate 18 18 Blood Pressure 138/86 116/72 Pulse Oximetry 97 97 Oxygen Delivery Method Room Air Room Air BMI result Body Mass Index 32.7 Lungs clear to auscultation bilaterally; normal S1-S2 regular rhythm; abdomen is soft, nondistended with epigastric tenderness to palpation Course Course Course Narrative: Labs, imaging studies and meds ordered Medications Administered Generic Name Dose Route Start Last Admin Trade Name Freq PRN Reason Stop Dose Admin Sodium Chloride 1,000 mls @ 999 mls/hr 10/09/23 02:00 10/09/23 02:03 Ns IV 10/09/23 03:00 999 mls/hr .Q1H1M BOBO Administration Discontinued Medications Generic Name Dose Route Start Last Admin Trade Name Mika PRN Reason Stop Dose Admin Famotidine 20 mg 10/09/23 00:37 10/09/23 02:02 Famotidine/Pf 20 Mg/2 Ml Vial IVPUSH 10/09/23 00:38 20 mg ONCE ONE Administration Ondansetron HCl 4 mg 10/09/23 00:03 10/09/23 00:05 Ondansetron Hcl 4 Mg/2 Ml Vial IVPUSH 10/09/23 00:04 4 mg ONCE ONE Administration Pantoprazole Sodium 80 mg 10/09/23 01:19 10/09/23 02:02 Pantoprazole Sodium 40 Mg/10 Ml Vial IVPUSH 10/09/23 01:20 80 mg ONCE ONE Administration Medical Decision Making Medical Decision Making [facility] Narrative: Concerns with the following; gastritis, peptic ulcer disease, Martha-Goddard tear, pancreatitis, biliary disease, SBO Patient was given Zofran; Protonix ordered CT ab/pelv pending UA concerning for UTI; abx sent to pts pharmacy Pt signed out to night attending; I recommended changing abx if any concerns for intra-abdominal infection on CT Differential Diagnosis Gastritis, pancreatitis, biliary disease, SBO, peptic ulcer disease Less likely ischemic bowel, diverticulitis, Boerhaave syndrome Lab Data [facility] Lab Attestation statement: I reviewed the patient's lab results. 10/08/23 21:37 10/08/23 21:37 Labs: Lab Results 10/08/23 10/08/23 Range/Units 21:33 21:37 WBC 13.6 H (4.8-10.8) X10*3/uL RBC 4.69 (4.20-5.50) X10*6/uL Hgb 14.1 (12.0-16.0) g/dl Hct 41.3 (37.0-47.0) % MCV 88.1 (80.0-98.0) fL MCH 30.1 (27.0-33.0) pg MCHC 34.1 (31.0-35.0) g/dl RDW 12.7 (11.0-16.0) % Plt Count 260 (160-400) X10*3/uL MPV 9.9 (9.4-12.3) fL Immature Gran % (Auto) 0.4 (0.0-0.4) % Neut % (Auto) 57.6 (45-73) % Lymph % (Auto) 33.4 (20-40) % Morrison % (Auto) 6.6 (2-11) % Eos % (Auto) 1.4 (0-4) % Baso % (Auto) 0.6 (0-2) % Lymph # (Auto) 4.5 (1.2-4.9) X10*3/uL Morrison # (Auto) 0.9 (0.1-1.2) X10*3/uL Eos # (Auto) 0.2 (0.0-0.4) X10*3/uL Baso # (Auto) 0.1 (0.0-0.2) X10*3/uL Abs Immat Gran (auto) 0.05 H (0.00-0.03) X10*3/uL Absolute Neuts (auto) 7.8 (2.0-8.3) x10*3/uL Absolute Nucleated RBC 0.000 (0.0-0.012) X10*3/uL Nucleated RBC % (auto) 0.0 (0.0-0.2) /100WBC Sodium 142 (135-145) mmol/L Potassium 3.9 (3.3-5.1) mmol/L Chloride 101 (96-108) mmol/L Carbon Dioxide 28 (22-29) mmol/L Anion Gap 17 (12-20) BUN 20 H (9-16) mg/dL Creatinine 0.76 (0.5-1.4) mg/dL Estim Creat Clear Calc 64.4 Estimated GFR > 60 Random Glucose 145 H (60-115) mg/dL Calcium 9.7 (8.4-10.2) mg/dL Total Bilirubin 1.6 H (0.0-1.0) mg/dL Direct Bilirubin 0.3 (0.0-0.5) mg/dL AST 20 (5-31) U/L ALT 40 H (0-31) U/L Alkaline Phosphatase 78 (39-117) U/L Total Protein 7.1 (6.5-8.0) g/dL Albumin 4.4 (3.5-5.0) g/dL Lipase 16 (8-78) U/L Urine Color Yellow Urine Appearance Clear Urine pH 5.5 (5.0-9.0) Ur Specific [place] 1.025 (1.005-1.025) Urine Protein Negative (Neg-Trace) mg/dL Urine Glucose (UA) Negative (Negative) mg/dL Urine Ketones Trace (Negative) mg/dL Urine Blood Negative (Negative) Urine Nitrite Negative (Negative) Ur Leukocyte Esterase Small (1+) H (Negative) Urine RBC 0-2 (0-2) /HPF Urine WBC 11-20 H (0-5) /HPF Ur Squamous Epith Cells 0-2 (0-2) /HPF Urine Bacteria 1+ (None Seen) Hyaline Casts 3-5 (0-2) /LPF Independent Interpretation I performed an independent interpretation of an: EKG Discharge Plan Discharge Clinical Impression: Abdominal pain, Hematemesis, UTI (urinary tract infection) Additional Instructions: 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 taken as instructed Prescriptions: New cephalexin 500 mg capsule 500 mg PO TID 7 Days Qty: 21 0RF No Action metformin 1,000 mg tablet 1 tab PO BID hydrochlorothiazide 25 mg tablet 1 tab PO DAILY atorvastatin 80 mg Tablet 80 mg PO DAILY Qty: 30 0RF pantoprazole [Protonix] 40 mg tablet,delayed release (DR/EC) 40 mg PO DAILY Qty: 30 0RF sucralfate 1 gram tablet 1 g PO BID Qty: 60 0RF cefuroxime axetil 250 mg tablet 250 mg PO BID 7 Days Qty: 14 0RF lidocaine [Lidoderm] 5 % adhesive patch,medicated 1 patch topical DAILY Qty: 15 0RF Rx Instructions: leave on most painful area for up to 12 hrs aspirin 325 mg tablet,delayed release (DR/EC) 325 mg PO BEDTIME ergocalciferol (vitamin D2) 1,250 mcg (50,000 unit) capsule 1,250 mcg PO QWEEK amlodipine 5 mg tablet 5 mg PO QAM losartan 50 mg tablet 50 mg PO DAILY Soren Alfonso U-100 Insulin 100 unit/mL (3 mL) insulin pen 35 unit subcut DAILY (DME) lancets 33 gauge misc See Rx Instructions Not Applicable TID Qty: 100 Rx Instructions: As directed (DME) pen needle, diabetic 32 gauge x 5/32 needle See Rx Instructions subcut DIRECTED Qty: 50 Rx Instructions: As directed insulin aspart U-100 100 unit/mL (3 mL) insulin pen subcut (DME) OneTouch Ultra Blue Test Strip Strip See Rx Instructions Not Applicable TID Qty: 10 Rx Instructions: As directed Print Language: French
[2023-10-09 02:01] VITALS: BP 116/72; PULSE 85; RESP 18; TEMP 36.8; O2SAT 97
[2023-10-09] MEDS: Pantoprazole Sodium 40 MG/10 ML VIAL 80 MG IVPUSH (02:02)
[2023-10-09] MEDS: Famotidine/PF 20 MG/2 ML VIAL IVPUSH (02:02)
[2023-10-09] MEDS: 0.9 % Sodium Chloride 1,000 ML 999 ML IV (02:03)
[2023-10-09 02:47] LABS: Lactic Acid 2.6 mmol/L (0.5-2.0)
[2023-10-09] MEDS: iohexoL 350 MG/ML 100 ML INFUS..BTL 85 ML IV (03:32)
[2023-10-09 04:07] VITALS: BP 116/77; PULSE 88; RESP 17; TEMP 36.7; O2SAT 97
[2023-10-09 04:24] LABS: Reflex Lactate? Lactic Acid Added
[2023-10-09] MEDS: 0.9 % Sodium Chloride 1,000 ML 999 ML IVCONT (04:49)
[2023-10-09 06:56] VITALS: BP 116/77; PULSE 88; RESP 17; TEMP 36.7; O2SAT 97
== END 2023-10-09 06:57 | disposition home or self-care (01) ==
PROVIDERS: Student in an Organized Health Care Education/Training Program; Emergency Provider Emergency Medicine; PCP Internal Medicine
DX: R10.9 Unspecified abdominal pain (principal); K92.0 Hematemesis; N39.0 Urinary tract infection, site not specified; E11.9 Type 2 diabetes mellitus without complications; I10 Essential (primary) hypertension; Z86.73 Personal history of transient ischemic attack (TIA), and cerebral infarction without residual deficits; Z79.84 Long term (current) use of oral hypoglycemic drugs; Z79.82 Long term (current) use of aspirin; Z79.4 Long term (current) use of insulin; Z79.02 Long term (current) use of antithrombotics/antiplatelets; Z79.899 Other long term (current) drug therapy
CPT/HCPCS: 36415; 71045; 74177; 80053; 81001; 82248; 83605; 83690; 85025; 87086; 93005; 96361; 96374; 96375; 99284; J2405; J2470; Q9967

== ENCOUNTER → 2023-10-08 21:17 | Outpatient (BNV) | payer MEDICARE, MEDICAID, SELFPAY | PROVIDERS: Emergency Provider Emergency Medicine; PCP Internal Medicine; Visit Provider Internal Medicine Cardiovascular Disease | DX: R94.31 Abnormal electrocardiogram [ECG] [EKG] (principal); R10.9 Unspecified abdominal pain | CPT/HCPCS: 93010 ==

== ENCOUNTER 2023-10-16 13:42 | Emergency (ER) | payer MEDICARE, MEDICAID, SELFPAY ==
[2023-10-16 13:52] VITALS: BP 121/71; PULSE 104; RESP 16; TEMP 36.6; O2SAT 96; BMI 28.3
[2023-10-16 14:00] VITALS: BP 126/75; PULSE 97; RESP 17; TEMP 36.2; O2SAT 97
--- NOTE | 2023-10-16 14:27 | ED_ITS ---
HPI - General Adult General Chief complaint: Abdominal Pain Stated complaint: Stomach Pain Time Seen by Provider: 10/16/23 14:52 Source: patient and gasoline finisher Mode of arrival: ambulatory Limitations: no limitations and language barrier History of Present Illness ED Provider: Wendi kaplan APRN HPI narrative: 50-year-old female with past medical history of subarachnoid hemorrhage, diabetes, gastritis here with epigastric pain/vomiting x 1 week. Of note, patient was seen here on October 08 for abdominal pain. She was diagnosed with a UTI and prescribed cephalexin. She also was felt to have either gastritis or peptic ulcer disease. Patient reports she is not taking a PPI. Patient reports she has been eating [place] rice, chicken and a lot of tomatoes at home. She denies any dietary modifications. She does drink coffee daily. She denies smoking or alcohol use. She denies any blood in the vomit or blood in the stool. No diarrhea or constipation. She completed the course of antibiotics and went to the pharmacy today to get a refill and was referred here for further evaluation from the pharmacy Related Data Home Medications ?Medication ?Instructions ?Recorded ?Confirmed hydrochlorothiazide 25 mg tablet 1 tab PO DAILY 01/13/20 01/13/20 metformin 1,000 mg tablet 1 tab PO BID 01/13/20 01/13/20 amlodipine 5 mg tablet 5 mg PO QAM 03/28/20 aspirin 325 mg tablet,delayed 325 mg PO BEDTIME 03/28/20 release blood sugar diagnostic #10 ea 03/28/20 ergocalciferol (vitamin D2) 1,250 1,250 mcg PO QWEEK 03/28/20 mcg (50,000 unit) capsule insulin aspart U-100 100 unit/mL unit subcut 03/28/20 (3 mL) subcutaneous pen insulin glargine 100 unit/mL (3 35 unit subcut DAILY 03/28/20 mL) subcutaneous pen lancets 33 gauge #100 ea 03/28/20 losartan 50 mg tablet 50 mg PO DAILY 03/28/20 pen needle, diabetic 32 gauge x #50 ea 03/28/20 Previous Rx's ?Medication ?Instructions ?Recorded atorvastatin 80 mg tablet 80 mg PO DAILY #30 tabs 01/16/20 cefuroxime axetil 250 mg tablet 250 mg PO BID 7 days #14 tabs 08/09/22 pantoprazole 40 mg tablet,delayed 40 mg PO DAILY #30 tabs 08/09/22 release (Protonix) sucralfate 1 gram tablet 1 g PO BID #60 tabs 08/09/22 lidocaine 5 % topical patch 1 patch topical DAILY #15 ea 11/26/22 (Lidoderm) cephalexin 500 mg capsule 500 mg PO TID UTI 7 days #21 caps 10/09/23 omeprazole 40 mg capsule,delayed 40 mg PO DAILY #14 caps 10/16/23 release ondansetron 4 mg disintegrating 4 mg PO Q6H PRN nausea and 10/16/23 tablet vomiting #15 tabs Allergies Allergy/AdvReac Type Severity Reaction Status Date / Time No Known Allergies Allergy Mild NOT Verified 10/16/23 13:55 APPLICABLE Review of Systems 2 Review of Systems: Yes all other systems are reviewed and are negative Constitutional: Constitutional: Reports no additional constitutional complaints, Denies body ache(s), Denies chills, Denies fever(s), Denies headache(s) and Denies weakness Eyes: Eyes: Reports no additional eye complaints and Denies change in vision ENT: Reports system reviewed and no additional complaints, except as documented, Denies dizziness, Denies headache(s), Denies nasal congestion, Denies nasal discharge and Denies neck pain Cardiovascular: Cardiovascular: Reports no additional cardiovascular complaints, Denies chest pain, Denies leg edema and Denies dyspnea Respiratory: Respiratory: Reports no additional respiratory complaints, Denies cough and Denies dyspnea Gastrointestinal: Gastrointestinal: Reports no additional gastrointestinal complaints, Reports abdominal pain, Denies melena, Denies diarrhea, Denies nausea, Reports vomiting and Denies hematemesis Genitourinary: Genitourinary: Reports no additional female genitourinary complaints and Denies urinary incontinence Musculoskeletal: Musculoskeletal: Reports no additional musculoskeletal complaints, Denies back pain, Denies arthralgias, Denies joint swelling, Denies neck pain, Denies numbness and Denies tingling Integumentary/Breasts: Skin/Breast: Reports system reviewed and no additional complaints, except as docu and Denies rash Neurologic: Reports system reviewed and no additional complaints, except as documented, Denies Abnormal speech present, Denies dizziness, Denies headache(s), Denies numbness, Denies tingling and Denies weakness [facility] Past Medical History Attestation statement: The following information was validated with the patient. 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 Advance Directives: No Advance Directives Information Provided: No service: No Current occupational status: unemployed Physical Exam ED Vital Signs: Vital Signs - 24 hr 10/16/23 13:52 10/16/23 14:00 10/16/23 16:00 Temperature 97.8 F 97.1 F 97.4 F Pulse Rate 104 H 97 92 Respiratory Rate 16 17 19 Blood Pressure 121/71 126/75 129/77 Pulse Oximetry 96 97 95 Oxygen Delivery Method Room Air Room Air Room Air BMI result Body Mass Index 28.3 Const General: cooperative, healthy appearing, comfortable and no acute distress Orientation/consciousness: patient oriented x3 Limitations: no limitations [facility] Head: Yes normal to inspection Ears: hearing grossly normal bilaterally General nose exam: Normal external nose present Face and sinus: Yes normal facial exam Mouth: Normal oral and palatal mucosa present Throat: Yes posterior oropharynx normal Eyes General: appearance normal, both eyes and all related structures Pupils: Equal, round and reactive pupils present Neck Neck: Yes normal visual inspection Chest Chest palpation & inspection: normal inspection of the chest Resp Effort & Inspection: normal respiratory effort Auscultation: clear to auscultation bilaterally Cardio Rate: regular rate Rhythm: regular rhythm Peripheral pulses: Peripheral pulses 2+ throughout GI Other: no rebound or guarding Inspection: Yes normal to inspection Palpation (GI): Soft to palpation and Tenderness to palpation present (GI) in the epigastrum Auscultation: normal bowel sounds Back/Spine/Pelvis Thoracic/Lumbar Spine: thoracic and lumbar spine normal to inspection Skin General skin exam: no rashes or lesions noted Neuro General: patient oriented x3, no focal motor deficits and normal sensation to monofilament Cranial nerves: Yes Equal, round and reactive pupils present Cognition (Neuro): normal cognition Speech: No Abnormal speech present Gait exam (Neuro): Normal gait present Motor exam (neuro): 5/5 motor strength present throughout Extrem General: Yes normal to inspection Course Course Course Narrative: RME performed by Teresita Lazcano PA-C. Patient is a 58 year old assigned female at presenting to the emergency department with abdominal pain. Patient states that she does not want to have any testing done, she just wants her cephalexin refilled. Detailed physical exam and review of systems are deferred to the laborer plumbing. Patient placed back in the waiting room pending room availability. Reevaluation(s) Reevaluation #1: Labs are unremarkable. EKG is nonischemic. Patient reports feeling improved. We discussed gastritis diet at home. Will discharge home with PPI and antiemetic as needed. Reviewed worrisome signs and symptoms of when to return to the emergency room. Comfortable plan for discharge home. Medications Administered Discontinued Medications Generic Name Dose Route Start Last Admin Trade Name Freq PRN Reason Stop Dose Admin Al Hydroxide/Mg Hydroxide 30 ml 10/16/23 15:18 10/16/23 15:46 Magnesium Hydrox/Alum Hydrox 30 Ml Oral.Susp PO 10/16/23 15:19 30 ml ONCE ONE Administration Lidocaine HCl 15 ml 10/16/23 15:18 10/16/23 15:46 Lidocaine Hcl Viscous 2 % 15 Ml Solution MUCOUS MEM 10/16/23 15:19 15 ml ONCE ONE Administration Ondansetron HCl 4 mg 10/16/23 15:18 10/16/23 15:22 Ondansetron Odt 4 Mg Tab.Rapdis TRANSLINGU 10/16/23 15:19 4 mg ONCE ONE Administration Medical Decision Making Medical Decision Making MDM Narrative: 50-year-old female with past medical history of subarachnoid hemorrhage, diabetes, gastritis here with epigastric pain/vomiting x 1 week. Of note, patient was seen here on October 08 for abdominal pain. She was diagnosed with a UTI and prescribed cephalexin. She also was felt to have either gastritis or peptic ulcer disease. Patient reports she is not taking a PPI. Patient reports she has been eating [place] rice, chicken and a lot of tomatoes at home. She denies any dietary modifications. She does drink coffee daily. She denies smoking or alcohol use. She denies any blood in the vomit or blood in the stool. No diarrhea or constipation. She completed the course of antibiotics and went to the pharmacy today to get a refill and was referred here for further evaluation from the pharmacy There is tenderness the epigastrium with no rebound or guarding Will obtain labs, EKG Patient will receive sublingual Zofran and a GI cocktail Differential Diagnosis Differential Diagnoses: The differential diagnosis associated with the presentation includes Gastritis, PUD, ACS Low suspicion for acute cholecystitis, cholelithiasis, pancreatitis Admission/Observation Consideration of admission/observation: Escalation of care including admission/observation considered Lab Data MDM Lab Attestation statement: I reviewed the patient's lab results. 10/16/23 15:31 10/16/23 15:31 Labs: Lab Results 10/16/23 Range/Units 15:31 WBC 12.9 H (4.8-10.8) X10*3/uL RBC 4.49 (4.20-5.50) X10*6/uL Hgb 13.6 (12.0-16.0) g/dl Hct 40.3 (37.0-47.0) % MCV 89.8 (80.0-98.0) fL MCH 30.3 (27.0-33.0) pg MCHC 33.7 (31.0-35.0) g/dl RDW 12.7 (11.0-16.0) % Plt Count 252 (160-400) X10*3/uL MPV 9.7 (9.4-12.3) fL Immature Gran % (Auto) 0.3 (0.0-0.4) % Neut % (Auto) 64.3 (45-73) % Lymph % (Auto) 27.4 (20-40) % [place] % (Auto) 6.4 (2-11) % Eos % (Auto) 1.2 (0-4) % Baso % (Auto) 0.4 (0-2) % Lymph # (Auto) 3.5 (1.2-4.9) X10*3/uL [place] # (Auto) 0.8 (0.1-1.2) X10*3/uL Eos # (Auto) 0.2 (0.0-0.4) X10*3/uL Baso # (Auto) 0.1 (0.0-0.2) X10*3/uL Abs Immat Gran (auto) 0.04 H (0.00-0.03) X10*3/uL Absolute Neuts (auto) 8.3 (2.0-8.3) x10*3/uL Absolute Nucleated RBC 0.000 (0.0-0.012) X10*3/uL Nucleated RBC % (auto) 0.0 (0.0-0.2) /100WBC Sodium 142 (135-145) mmol/L Potassium 3.5 (3.3-5.1) mmol/L Chloride 103 (96-108) mmol/L Carbon Dioxide 25 (22-29) mmol/L Anion Gap 18 (12-20) BUN 19 H (9-16) mg/dL Creatinine 0.84 (0.5-1.4) mg/dL Estim Creat Clear Calc 64.3 Estimated GFR > 60 Random Glucose 143 H (60-115) mg/dL Calcium 9.9 (8.4-10.2) mg/dL Total Bilirubin 1.8 H (0.0-1.0) mg/dL Direct Bilirubin 0.4 (0.0-0.5) mg/dL AST 28 (5-31) U/L ALT 44 H (0-31) U/L Alkaline Phosphatase 68 (39-117) U/L Troponin I High Sens < 2.7 (<3.5-17.0) ng/L Total Protein 7.0 (6.5-8.0) g/dL Albumin 4.3 (3.5-5.0) g/dL Lipase 15 (8-78) U/L Independent Interpretation I performed an independent interpretation of an: EKG Interpretation: I independently viewed the EKG which shows normal sinus rhythm with a rate of 93, normal IA, normal QRS, normal QT, no changes when compared to previous EKG Tests considered The following testing was considered but not selected: No focal abdominal pain to suggest need for CT imaging Prescription Management I considered prescription management with: Antibiotic Discharge Plan Discharge Clinical Impression: Abdominal pain Patient Disposition: Home, Self-Care Instructions: Abdominal Pain (ED) Additional Instructions: Very bland diet NO fatty or greasy foods. No foods that are acidic. Limit coffee Follow-up with your doctor Prescriptions: New omeprazole 40 mg capsule,delayed release(DR/EC) 40 mg PO DAILY Qty: 14 0RF ondansetron 4 mg tablet,disintegrating 4 mg PO Q6H PRN (Reason: nausea and vomiting) Qty: 15 0RF No Action metformin 1,000 mg tablet 1 tab PO BID hydrochlorothiazide 25 mg tablet 1 tab PO DAILY atorvastatin 80 mg Tablet 80 mg PO DAILY Qty: 30 0RF cephalexin 500 mg capsule 500 mg PO TID 7 Days Qty: 21 0RF pantoprazole [Protonix] 40 mg tablet,delayed release (DR/EC) 40 mg PO DAILY Qty: 30 0RF sucralfate 1 gram tablet 1 g PO BID Qty: 60 0RF cefuroxime axetil 250 mg tablet 250 mg PO BID 7 Days Qty: 14 0RF lidocaine [Lidoderm] 5 % adhesive patch,medicated 1 patch topical DAILY Qty: 15 0RF Rx Instructions: leave on most painful area for up to 12 hrs aspirin 325 mg tablet,delayed release (DR/EC) 325 mg PO BEDTIME ergocalciferol (vitamin D2) 1,250 mcg (50,000 unit) capsule 1,250 mcg PO QWEEK amlodipine 5 mg tablet 5 mg PO QAM losartan 50 mg tablet 50 mg PO DAILY Soren Alfonso U-100 Insulin 100 unit/mL (3 mL) insulin pen 35 unit subcut DAILY (DME) lancets 33 gauge misc See Rx Instructions Not Applicable TID Qty: 100 Rx Instructions: As directed (DME) pen needle, diabetic 32 gauge x 5/32 needle See Rx Instructions subcut DIRECTED Qty: 50 Rx Instructions: As directed insulin aspart U-100 100 unit/mL (3 mL) insulin pen subcut (DME) OneTouch Ultra Blue Test Strip Strip See Rx Instructions Not Applicable TID Qty: 10 Rx Instructions: As directed Referrals: Cara Carlin MD [Primary Care Provider] - 1 week Print Language: Bruneian
--- NOTE | 2023-10-16 15:19 | ECG_ITS ---
Test Reason : EPIGASTRIC PAIN Blood Pressure : / mmHG Vent. Rate : 093 BPM Atrial Rate : 093 BPM P-R Int : 166 ms QRS Dur : 086 ms QT Int : 364 ms P-R-T Axes : 047 -17 050 degrees QTc Int : 452 ms Normal sinus rhythm Inferior infarct (cited on or before 13-JAN-2020) Possible Anterior infarct (cited on or before 11-DEC-2016) Abnormal ECG When compared with ECG of 08-OCT-2023 21:25, No significant change was found Referred By: Wendi Gerardo Electronically Signed By:LARS MCCRACKEN MD
[2023-10-16] MEDS: Ondansetron ODT 4 MG TAB.RAPDIS TRANSLINGU (15:22)
[2023-10-16 15:38] LABS: MANUAL DIFF FLAG NO
[2023-10-16 15:39] LABS: Basophils Absolute Auto 0.1 X10*3/uL (0.0-0.2); Basophils Percent Auto 0.4 % (0-2); Eosinophils Absolute Auto 0.2 X10*3/uL (0.0-0.4); Eosinophils Percent Auto 1.2 % (0-4); Hematocrit 40.3 % (37.0-47.0); Hemoglobin 13.6 g/dl (12.0-16.0); Imm Gran Abs Auto 0.04 X10*3/uL (0.00-0.03); Imm Gran Pct Auto 0.3 % (0.0-0.4); Lymphocytes Absolute Auto 3.5 X10*3/uL (1.2-4.9); Lymphocytes Percent Auto 27.4 % (20-40); Mean Corpuscular HGB Conc 33.7 g/dl (31.0-35.0); Mean Corpuscular Hemoglobin 30.3 pg (27.0-33.0); Mean Corpuscular Volume 89.8 fL (80.0-98.0); Mean Platelet Volume 9.7 fL (9.4-12.3); Monocytes Absolute Auto 0.8 X10*3/uL (0.1-1.2); Monocytes Percent Auto 6.4 % (2-11); Neutrophils Absolute Auto 8.3 x10*3/uL (2.0-8.3); Neutrophils Percent Auto 64.3 % (45-73); Platelet Count 252 X10*3/uL (160-400); Red Blood Count 4.49 X10*6/uL (4.20-5.50); Red Cell Distribution Width 12.7 % (11.0-16.0); White Blood Count 12.9 X10*3/uL (4.8-10.8)
[2023-10-16] MEDS: Lidocaine HCl Viscous 2 % 15 ML SOLUTION MUCOUS MEM (15:46)
[2023-10-16] MEDS: Magnesium Hydrox/Alum Hydrox 30 ML ORAL.SUSP PO (15:46)
[2023-10-16 16:00] VITALS: BP 129/77; PULSE 92; RESP 19; TEMP 36.3; O2SAT 95
[2023-10-16 16:03] LABS: Alanine Aminotransferase 44 U/L (0-31); Albumin Level 4.3 g/dL (3.5-5.0); Alkaline Phosphatase 68 U/L (39-117); Anion Gap 18 (12-20); Aspartate Amino Transferase 28 U/L (5-31); Bilirubin Direct 0.4 mg/dL (0.0-0.5); Bilirubin Total 1.8 mg/dL (0.0-1.0); Blood Urea Nitrogen 19 mg/dL (9-16); Calcium 9.9 mg/dL (8.4-10.2); Carbon Dioxide 25 mmol/L (22-29); Chloride 103 mmol/L (96-108); Creatinine Clr Calc Pharmacy 64.3; Estimated Glomerular Filt Rate > 60; Glucose Random 143 mg/dL (60-115); Lipase 15 U/L (8-78); Potassium 3.5 mmol/L (3.3-5.1); Sodium 142 mmol/L (135-145)
[2023-10-16 16:13] LABS: Troponin-I High Sensitivity < 2.7 ng/L (<3.5-17.0)
[2023-10-16 16:50] VITALS: BP 129/77; PULSE 92; RESP 19; TEMP 36.3; O2SAT 95
== END 2023-10-16 16:51 | disposition home or self-care (01) ==
PROVIDERS: Nurse Practitioner Family; Emergency Provider Emergency Medicine; PCP Internal Medicine
DX: R10.13 Epigastric pain (principal); E11.9 Type 2 diabetes mellitus without complications; I10 Essential (primary) hypertension; Z79.84 Long term (current) use of oral hypoglycemic drugs; Z79.82 Long term (current) use of aspirin
CPT/HCPCS: 36415; 80048; 80076; 83690; 84484; 85025; 93005; 99283; 99284

== ENCOUNTER → 2023-10-16 15:19 | Outpatient (BNV) | payer MEDICARE, MEDICAID, SELFPAY | PROVIDERS: Emergency Provider Emergency Medicine; PCP Internal Medicine; Visit Provider Internal Medicine Cardiovascular Disease | DX: R94.31 Abnormal electrocardiogram [ECG] [EKG] (principal) | CPT/HCPCS: 93010 ==

== ENCOUNTER 2023-12-08 10:56 | Outpatient (REF) | payer MEDICARE, MEDICAID, SELFPAY ==
[2023-12-08 14:07] LABS: Hematocrit 41.6 % (37.0-47.0); Hemoglobin 13.6 g/dl (12.0-16.0); Mean Corpuscular HGB Conc 32.7 g/dl (31.0-35.0); Mean Corpuscular Hemoglobin 29.8 pg (27.0-33.0); Mean Platelet Volume 10.5 fL (9.4-12.3); Platelet Count 263 X10*3/uL (160-400); Red Blood Count 4.57 X10*6/uL (4.20-5.50); White Blood Count 9.6 X10*3/uL (4.8-10.8)
[2023-12-08 14:23] LABS: Estimated Average Glucose 163 mg/dL; Hemoglobin A1c % 7.3 % (<6.0)
[2023-12-08 15:01] LABS: Creatinine Urine 51.65 mg/dL; Microalbumin Urine < 5.0 mg/L
[2023-12-08 15:03] LABS: Alanine Aminotransferase 32 U/L (0-31); Albumin Level 4.5 g/dL (3.5-5.0); Alkaline Phosphatase 78 U/L (39-117); Anion Gap 16 (12-20); Aspartate Amino Transferase 26 U/L (5-31); Bilirubin Direct 0.5 mg/dL (0.0-0.5); Bilirubin Total 1.8 mg/dL (0.0-1.0); Blood Urea Nitrogen 16 mg/dL (9-16); Carbon Dioxide 27 mmol/L (22-29); Chloride 104 mmol/L (96-108); Cholesterol 82 mg/dL (<200); Estimated Glomerular Filt Rate > 60; Free T4 (Free Thyroxine) 0.85 ng/dL (0.71-1.85); Glucose Random 75 mg/dL (60-115); HDL Cholesterol 31 mg/dL (>40); LDL Cholesterol Calculated 22 mg/dL (<100); Potassium 3.5 mmol/L (3.3-5.1); Sodium 143 mmol/L (135-145); Thyroid Stimulating Hormone 2.48 uIU/mL (0.32-4.0); Total Protein 7.7 g/dL (6.5-8.0); Triglycerides 145 mg/dL (<150); Vitamin D 25-OH Total 44.5 ng/mL (>30)
[2023-12-08 15:27] LABS: Vitamin B12 909 pg/mL (200-900)
[2023-12-09 04:58] LABS: HBS Num1 0.59 mIU/mL (0-7.99); HBc Num1 0.09 S/CO (0.00-0.79); HBsAGNum1 0.58 S/CO (0.00-0.99); Hepatitis B Core Antibody Nonreactive (Nonreactive); Hepatitis B Surface Antigen Negative (Negative); ~HepC Num1 0.12 S/CO (0.00-0.79); ~Hepatitis B Surface Antibody NONREACTIVE (Nonreactive); ~Hepatitis C Antibody Nonreactive (Nonreactive)
[2023-12-09 05:07] LABS: Hepatitis A Antibody IgM 0.16 Index (0-0.79); ~Hepatitis A Antibody IgM Nonreactive (Nonreactive)
[2023-12-11 07:24] LABS: TS Negative Control Passed; TS Panel A 0; TS Panel B 0; TS Positive Control Passed; TSpotTB Negative (Negative)
== END 2023-12-08 10:57 | disposition home or self-care (01) ==
LOC: HO.HHCL 10:56
PROVIDERS: Referring Provider Internal Medicine; Visit Provider Family Medicine
DX: Z00.00 Encounter for general adult medical examination without abnormal findings (principal); E11.65 Type 2 diabetes mellitus with hyperglycemia; Z79.4 Long term (current) use of insulin; I10 Essential (primary) hypertension; E78.49 Other hyperlipidemia; R10.13 Epigastric pain; Z13.31 Encounter for screening for depression; Z68.38 Body mass index [BMI] 38.0-38.9, adult; Z11.59 Encounter for screening for other viral diseases
CPT/HCPCS: 36415; 80048; 80061; 80076; 82043; 82306; 82570; 82607; 83036; 84439; 84443; 85027; 86481; 86704; 86706; 86709; 86803; 87340

== ENCOUNTER 2024-01-11 11:13 | Outpatient (REF) | payer MEDICARE, MEDICAID, SELFPAY | END 2024-01-11 11:14 | disposition home or self-care (01) | LOC: HO.HAP 11:13 | PROVIDERS: Visit Provider Internal Medicine | DX: Z46.1 Encounter for fitting and adjustment of hearing aid (principal); H90.3 Sensorineural hearing loss, bilateral | CPT/HCPCS: V5264 ==

== ENCOUNTER 2024-03-03 10:37 | Outpatient (REF) | payer MEDICARE, MEDICAID, SELFPAY ==
--- NOTE | 2024-03-03 13:29 | MHC.AU.HA3 ---
Hearing Instrument Follow-Up- Binaural Date of Visit: 03/03/24 Clinic [facility] Used: Rony Nohemi Household Coordinator Left Ear: Make, Model, Color, Serial Number: Maria Antonia Chavarria L70-UP Color: Graphite Powell S#[id number] Fruit And Vegetable Factory Worker Repair Warranty: 05/29/2026 Fruit And Vegetable Factory Worker Loss and Damage Warranty: 05/29/2026 [facility] Service Plan: 05/14/2024 Battery Size: 675 Poll Clerk/Slim Tube: Earmold/Dome/CShell/SlimTip: [place] canal mold Type of Wax Guard: Dispensed By: [facility] Date of Fittin06/13/2015 Follow-Up Summary: Juanis and her state her hearing aid must be defective, do not feel it could have been a new device when she was given it, as she seems to nut picker all sorts of bluetooth signals at her apartment such as the neighbor's TV and finds everything too loud. Some confusion as they state this began when she received her new earmold, but they believe the issue comes from the hearing aid itself and do not report problems with the earmold. Upon reviewing history, Juanis is now in a UP device, transitioned from a Aura SP loaner and prior Virto SP. Suspect patient complaints are related to additional gain, but she and feel very strongly that the device needs to be replaced, agreed to send out and reprogrammed her previous loaner in interim. Appt will be required to address programming concerns upon return of device. Recommendations: Recommendations: Patient will be contacted when materials have arrived. Diagnosis Code(s): Primary Diagnosis: H90.3 Bilateral Sensorineural Hearing Loss Signature: Provider: Rebecca Shannon, CCC-A
== END 2024-03-03 10:38 | disposition home or self-care (01) ==
LOC: HO.HAP 10:37
PROVIDERS: Visit Provider Internal Medicine
DX: Z13.89 Encounter for screening for other disorder (principal)

== ENCOUNTER 2024-04-07 08:06 | Outpatient (REF) | payer MEDICARE, MEDICAID, SELFPAY ==
--- NOTE | 2024-04-07 09:15 | MHC.AU.HA3 ---
Hearing Instrument Follow-Up- Binaural Date of Visit: 04/07/24 Flight Line Mechanic Used: Gildardo [facility] automation/controls manager Left Ear: Make, Model, Color, Serial Number: Maria Antonia Chavarria L70-UP Color: Graphite Powell S#[id number] Lead Solutions Architect Repair Warranty: 05/29/2026 Lead Solutions Architect Loss and Damage Warranty: 05/29/2026 [facility] Service Plan: 05/14/2024 Battery Size: 675 Business Process Specialist/Slim Tube: Earmold/Dome/CShell/SlimTip: [place] canal mold Type of Wax Guard: Dispensed By: [facility] Date of Fittin06/13/2015 Follow-Up Summary: Juanis is here with her and [facility] automation/controls manager Gildardo. She was scheduled for a hearing evaluation, referral stating please evaluate for smaller hearing aid . Patient's states he is late for work and needs appointment to be fast (patient arrived and was seen early). They state her loaner device was perfect and they want to keep it. Explained this is a ham sawyer loaner device and cannot be given to patients permanently, and new hearing aid is less than 1 year old, patient did not attend follow up appointment after initial fit, insurance covers hearing aids every 5 years so we will address concerns about new device first. Primary concerns are that 1) glasses press VC when she puts them on and off due to higher location of push button and 2) glasses put pressure on hearing aid which causes discomfort. Patient states she does not use VC on her own. Recommended transferring settings from loaner to her device and disabling VC. Patient and agreed. She reported comfortable sound quality after adjustment. Explained that this hearing aid was selected because it is UP, SP is not strong enough for her degree of loss. Patient does not agree with this. Explained settings were transferred as closely as possible. Counseled/practiced putting glasses inside of hearing aid rather than on top or outside as this should put less pressure on device/ear and head. Patient and reported satisfaction before leaving, will return if issues persist. Recommendations: Recommendations: Patient will call if problems persist. Diagnosis Code(s): Primary Diagnosis: H90.3 Bilateral Sensorineural Hearing Loss Signature: Provider: Rebecca Shannon, CCC-A
== END 2024-04-07 08:07 | disposition home or self-care (01) ==
LOC: HO.SH 08:06
PROVIDERS: Visit Provider Internal Medicine
DX: Z13.89 Encounter for screening for other disorder (principal)

== ENCOUNTER 2024-07-27 13:51 | Outpatient (REF) | payer MEDICARE, MEDICAID, SELFPAY ==
--- NOTE | 2024-07-27 14:46 | MHC.AU.HA3 ---
Hearing Instrument Follow-Up- Binaural Date of Visit: 07/27/24 Left Ear: Make, Model, Color, Serial Number: Maria Antonia Chavarria L70-UP Color: Graphite Powell S#[id number] Diamond Cutter Repair Warranty: 05/29/2026 Diamond Cutter Loss and Damage Warranty: 05/29/2026 [facility] Service Plan: 05/14/2024 Battery Size: 675 Court Assistant/Slim Tube: Earmold/Dome/CShell/SlimTip: [place] canal mold Type of Wax Guard: Dispensed By: [facility] Date of Fittin06/13/2015 Follow-Up Summary: Pt and continue to feel her hearing aid is picking up signals from other apartments as she hears double sounds and is generally unhappy with this hearing aid, want to go back to previous model. Discussed again that unfortunately return window was missed when pt did not return for follow up after fitting and only covers devices every 5 years, we will send this hearing aid out again per pt request and when it comes back will attempt to replicate settings from previous device, though it was an SP and this is UP. Has Aura V70 SP loaner. Settings of B70 SP are printed out in chart to match MPO and gain. Recommendations: Recommendations: Patient will be contacted when materials have arrived. Diagnosis Code(s): Primary Diagnosis: H90.3 Bilateral Sensorineural Hearing Loss Signature: Provider: Rebecca Shannon, CCC-A
--- OUTSIDE RECORDS SUMMARY | 2024-07-27 16:06 | XMS_ITS | Encounter Summary ---
Author Organization [employer] Address [address] [place] [address] Care Team Providers Care Processing Technician Name Role Phone Cara Carlin MD Primary Care Provider + Presley Joe PharmD Unavailable [phone] Reason for Visit * Reason Comments Med Refill Encounter Details Date Type Department Care Team (Late st Contact Info) Description 04/15/[address] [facility] [address], [place] [phone] Cara Carlin MD [address], [place] [phone] Type 2 diabetes mellitus without complications (CMS/HCC) Social History Tobacco Use Types Packs/Day Years Used Date Smoking Tobacco: Never Smokeless Tobacco: Never Alcohol Use Standard Drinks/Week Comments Never 0 (1 standard drink = 0.6 oz pur e alcohol) PHQ-2 Answer Date Recorded Patient Health Questionnaire-2 Score 0 10/20/2022 Housing Stability Answer Date Recorded What is your housing situation today? I have [place] 01/15/[address] you li ve. Do you have problems with any of the following? None of the above 01/15/2023 Food Insecurity Answer Date Recorded Within the past 12 months, y ou worried that your food would run out before you got money to buy more: Never True 01/15/2023 Within the past 12 months,th e food you bought just didn't last and you didn't have enough money to get more: Never True Transportation Answer Date Recorded In the past 12 months, has l ack of transportation kept you from medical appts, meetings, work or from getting things needed for daily living? No 01/15/2023 Utilities Answer Date Recorded In the past 12 months, has t he electric, gas, oil or water company threatened to shut off services in your home? No 01/15/2023 Depression Answer Date Recorded Patient Health Questionnaire-2 Score 0 10/20/2022 Comments Unknown Sex and Gender Information Value Date Recorded Sex Assigned at Female 01/26/2022 10:14 AM EDT Legal Sex Female 10:14 AM EDT Gender Identity Female 01/26/2022 10:14 AM EDT Sexual Orientation Choose not to disclose 2021 10:14 AM EDT documented as of this encounter Plan of Treatment Upcoming Encounters Date Type Department Care Team (Late st Contact Info) Description 09/13/2024 9:15 AM EDT Office Visit [facility] [address] [place] [address] Cara Carlin MD [address] [place] [phone] documented as of this encounter Goals Goal Patient Goal Type Associated Problems Recent Progress Patient-Stated? Author Blood Pressure < 140/90 Blood Pressure 144/88(2024 9:36 AM EDT) No Presley Joe PharmD Hemoglobin A1c < 7 Result Component 7.6( 9:37 AM EDT) No Presley Joe PharmD documented as of this encounter Visit Diagnoses Diagnosis Type 2 diabetes mellitus without complications (CMS/[facility]) documented in this encounter Care Teams Processing Technician Relationship Specialty Start Date End Date Cara Carlin MD [address] [place] [phone] PCP - General Family Medicine 02/13/16 Presley Joe PharmD [address] [place] [phone] Pharmacist Internal Medicine 04/15/23 documented as of this encounter
--- OUTSIDE RECORDS SUMMARY | 2024-07-27 16:06 | XMS_ITS | Encounter Summary ---
Author Organization [facility] Address [address] [place] [address] Care Team Providers Care Director Emergency Name Role Phone Cara Carlin MD Primary Care Provider + Presley Joe PharmD Unavailable [phone] Encounter Details Date Type Department Care Team ([facility] Contact Info) Description 04/30/2022 Orders Only [facility] CHC MED & PEDS [address] [place], [place] [phone] Raya Barron LPN Social History Tobacco Use Types Packs/Day Years Used Date Smoking Tobacco: Never Assessed Comments Unknown Sex and Gender Information Value Date Recorded Sex Assigned at Female 01/26/2022 10:14 AM EDT Legal Sex Female 10:14 AM EDT Gender Identity Female 01/26/2022 10:14 AM EDT Sexual Orientation Choose not to disclose 2021 10:14 AM EDT COVID-19 Exposure Response Date Recorded In the last 10 days, have yo u been in contact with someone who was confirmed or suspected to have Coronavirus/COVID-19? No / Unsure 04/15/2022 10:38 AM EST documented as of this encounter Plan of Treatment Upcoming Encounters Date Type Department Care Team (Late Contact Info) Description 09/13/2024 9:15 AM EDT Office Visit [facility] MEDICINE [address] [place] [address] Cara Carlin MD [address] [place] [address] documented as of this encounter Visit Diagnoses Not on filedocumented in this encounter Care Teams Director Emergency Relationship Specialty Start Date End Date Cara Carlin MD [address] [place] [address] PCP - General Family Medicine 02/13/16 Presley Joe, ShayneD [address] [place] [id number] Pharmacist Internal Medicine 04/15/23 documented as of this encounter
--- OUTSIDE RECORDS SUMMARY | 2024-07-27 16:06 | XMS_ITS | Encounter Summary ---
Author Organization [facility] Address [address] [place] [address] Care Team Providers Care Reinforcing Iron Worker Helper Name Role Phone Cara Carlin MD Primary Care Provider + Presley Joe PharmD Unavailable [phone] Encounter Details Date Type Department Care Team ([facility] Contact Info) Description 11/25/2022 Orders Only [facility] CHC MED & PEDS [address] [place], [place] [phone] Raya Barron LPN Social History Tobacco Use Types Packs/Day Years Used Date Smoking Tobacco: Never Smokeless Tobacco: Never Alcohol Use Standard Drinks/Week Comments Never 0 (1 standard drink = 0.6 oz pur e alcohol) PHQ-2 Answer Date Recorded Patient Health Questionnaire-2 Score 0 10/20/2022 Depression Answer Date Recorded Patient Health Questionnaire-2 [...] Description 09/13/2024 9:15 AM EDT Office Visit [facility] MEDICINE [address] [place], [place] [phone] Cara Cralin MD [address] [place], [place] [phone] documented as of this encounter Visit Diagnoses Not on filedocumented in this encounter Care Teams Reinforcing Iron Worker Helper Relationship Specialty Start Date End Date Cara Carlin MD [address] [place] [address] PCP - General Family Medicine 02/13/16 Presley Joe, ShayneD [address] [place] [address] Pharmacist Internal Medicine 04/15/23 documented as of this encounter
--- OUTSIDE RECORDS SUMMARY | 2024-07-27 16:06 | XMS_ITS | Clinical Summary ---
Author Organization [employer] Address [address] [facility] [address] [place] [address] Care Team Providers Care Bucket Pusher Name Role Phone Cara Carlin MD Primary Care Provider + Presley Joe PharmD Unavailable [phone] Allergies No known active allergies Medications Lancets (OneTouch Delica Plus [id number]) miscIndications:T ype 2 diabetes mellitus without complications (CMS/HCC) TEST BLOOD SUGAR 4 TIMES A DAY 100 each 04/15/19 24 Active BD Pen Needle Lesli U/F 32G X 4 MM misc USE FOUR TIMES DAILY WITH INSULIN 100 each 11 12/07/19 24 Active omeprazole (PriLOSEC) [address] capsule Take 40 mg by mouth Once per day. 10/16/19 24 Active magnesium 80 MG tablet Purchases OTC - Unclear Strength - Daily as needed for muscle spasms Active POTASSIUM GLUCONATE PO Purchases OTC - Unknown Strength - Daily as needed Active amLODIPine (Norvasc) 5 MG tablet TAKE 1 TABLET BY MOUTH EVERY MORNING 90 tablet 3 01/17/20 24 Active atorvastatin (Lipitor) 80 MG tablet TAKE 1 TABLET BY MOUTH EVERY MORNING 90 tablet 3 01/17/20 24 Active hydroCHLOROthiazi de (HYDRODiuril) 25 MG tablet TAKE 1 TABLET BY MOUTH EVERY MORNING 90 tablet 3 01/17/20 24 Active losartan (Cozaar) 50 MG tablet TAKE 1 TABLET BY MOUTH EVERY MORNING 90 tablet 3 01/17/20 24 Active Continuous Glucose Sensor (FreeStyle Rissa 2 Sensor) miscIndications:T ype 2 diabetes mellitus without complications (CMS/HCC) USE TO TEST BLOOD SUGAR FOUR TIMES DAILY DIRECTED. CHANGE EVERY 14 DAYS 2 each 01/17/20 24 Active ergocalciferol (Vitamin D2) 1.25 MG (95688 UT) capsuleIndication s:Vitamin D deficiency TAKE 1 CAPSULE BY MOUTH ONCE WEEKLY ON WEDNESDAY MORNING 12 capsule 3 01/17/20 24 Active glucose blood (FreeStyle Precision Dennis Test) test stripIndications: Type 2 diabetes mellitus with hyperglycemia, with long-term current use of insulin (CMS/HCC) USE DIRECTED TO TEST BLOOD SUGAR EVERY 8 HOURS NEEDED 50 strip 5 01/25/20 24 Active Aspirin Low Dose 81 MG EC tablet TAKE 1 TABLET BY MOUTH EVERY EVENING 90 tablet 3 03/16/20 24 Active insulin aspart, with niacinamide, (Fiasp FlexTouch) 100 UNIT/ML injectionIndicati ons:Type 2 diabetes mellitus with hyperglycemia, with long-term current use of insulin (CMS/HCC) INJECT 3-15 UNITS SUBCUTANEOUSLY THREE TIMES DAILY PER SLIDING SCALE 150-200 = 3 UNITS, 201-250 = 6U, 251-300 = 9U, 301-350 = 12U, > 350 = 15U AND CALL DOCTOR 15 mL 3 04/03/19 25 Active Alcohol Swabs (Alcohol Prep) 70 % pads USE DIRECTED TO TEST BLOOD SUGAR THREE TIMES DAILY 100 each 5 05/02/19 25 Active metFORMIN (Glucophage) 1000 MG tablet TAKE 1 TABLET BY MOUTH TWICE DAILY IN THE MORNING AND IN THE EVENING WITH MEALS 180 tablet 1 05/30/19 25 Active Insulin Glargine-yfgn 100 UNIT/ML solution pen-injectorIndic ations:Type 2 diabetes mellitus with hyperglycemia, with long-term current use of insulin (CMS/HCC) Inject 0.42 mL (42 Units) under the skin at bedtime. 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 Overweight 06/13/2024 Assessment & Plan (06/13/2024 10:45 AM EDT): Discussed re weight reduction options including exercise, life style modifications, diet. Recommended to decrease soda and sugary beverage consumption, increase protein intake with meals (at least 1 portion of protein with each meal) to assist with satiety, increase dietary fiber Recommended at least 150 min/week of moderate intensity exercise. Skin tag 01/14/2024 Assessment & Plan (01/14/2024 10:43 AM EDT): Will schedule appointment for resection. History of subarachnoid hemorrhage 12/08/2023 Bicipital tendinitis of right shoulder Assessment & Plan (01/08/2023 10:52 AM EDT): Use tylenol or diclofenac gel prn Counseled to put heat on effected area Will refer to PT Vitamin D deficiency 10/16/2022 Type 2 diabetes mellitus 10/16/2022 Assessment & Plan (06/13/2024 10:44 AM EDT): Uncontrolled, likely related to life style changes, we discussed with pt the importance of increasing physical activity and decreasing calorie intake. Continue Insulin 42 units QHS + Metformin + Humalog TID sliding scale. Check fgstk 3 x daily. Fu with me in 3 months. Pt declined Influenza and Covid immunizations today. Assessment & Plan (01/14/2024 10:41 AM EDT): Controlled. A1c is not at goal yet. Continue on Metformin 1000 mg + Basaglar 42 units + Aspart (sliding scale) Counseled re more frequent low calorie/carb meals. Check fgstk 3x daily Encouraged physical activity as tolerated. FU in one month. Reminded to put CGM sensor REN and follow up with [facility] with our PharmD, [facility] program next month. Ophthalmology UTD. Reminded her about dental prophylaxis. Pt declined influenza immunization today. Assessment & Plan (01/08/2023 11:06 AM EDT): A1c is stable, not optimally better but not optimally controlled I sent a prescription for CGM sensors and reminded her to use Novolog TID AC meals. Cont januvia 100 mg + metfomrin BID + Basaglar 38 units FU 3 months Will refer to [facility] clinic Opthalmology eval 09/23. She decline flu and Covid IZ Assessment & Plan (10/20/2022 10:43 AM EDT): improving, A1C not at goal yet FU with laborer general, pt has GCM device counseled to use basaglar 38 unit as prescribed + januiva 100 mg + metformin 1000mg BID + novaog sliding scale AC meals order labs prior to next appointment and fu in 3 months foot exam is wnl, no DM neuropathy Pure hypercholesterolemia 10/16/2022 Assessment & Plan (10/20/2022 10:43 AM EDT): order labs continue atorvastatin 80mg Sensorineural hearing loss, bilateral 10/16/2022 Assessment & Plan (01/14/2024 10:43 AM EDT): Pt has been using hearing aids, uses mostly the one on the left side due to discomfort of hearing aid. Will contact audiology and see if Pt is eligible for smaller hearing aid that will not come off when she wears reading glasses. Assessment & Plan (01/08/2023 10:48 AM EDT): Will refer to audiology for new hearing aid fitting and fu in 3 months, if she cont with signficant speech issues I will refer to speech therapy Cerebrovascular accident 10/16/2022 Adjustment disorder with depressed mood 03/13/20 16 Benign hypertension 04/27/2012 Assessment & Plan (01/14/2024 10:20 AM EDT): Controlled. Compliant w/meds Continue Amlodipine + hydrochlorothiazide + Losartan. Counseled re low salt diet/increase moderate physical activity. Check home BP BIW and prn CP/EVANS/MARIA Non smoking patient. Assessment & Plan (10/20/2022 10:39 AM EDT): BP is at goal continue amlodpine 5 + losartan 50mg per day + HCTZ 25 Counseled re low salt diet/increase moderate physical activity. Check home BP BIW and prn CP/EVANS/MARIA Non smoking patient. Order labs and fu with me in 3 months Resolved Problems Problem Noted Date Diagnosed Date Resolved Date Uterine leiomyoma 04/15/2023 04/15/2023 12/08/2023 Premenopausal menorrhagia 04/15/2023 04/15/2023 Encounters Date Type Department Care Team Description 06/22/2024 Telephone [facility] MEDICINE [address] [place] [address] Cara Carlin MD Prior Authorization ([facility]: insulin aspart, with niacinamide, (Fiasp FlexTouch) 100 UNIT/ML injection) 06/14/2024 Telephone [facility] OPTOMETRY [address] [place], [place] [phone] Moises Eidn, OD 06/13/2024 10:30 AM EDT Office Visit [facility] MEDICINE [address] [place] [address] Cara Carlin MD Type 2 diabetes mellitus with hyperglycemia, with long-term current use of insulin ([facility]/HCC) (Primary Dx); Mild nonproliferative diabetic retinopathy of both eyes without macular edema associated with type 2 diabetes mellitus (CMS/HCC); Overweight; Skin tag; Dietary counseling; Exercise counseling; Screening mammogram for breast cancer 06/13/2024 Telephone [facility] MEDICINE [address], [place] [phone] Cara Carlin MD Prior Authorization ( [place] Request: Insulin Glargine-yfgn 100 UNIT/ML solution pen-injector ) 06/13/2024 Travel 06/09/2024 Population Health Risk Score [facility] () Department [address] [place] [phone] Provider, Population Health Generic 06/06/2024 Patient Outreach [facility] MEDICINE [address], [place] [phone] Cara Carlin MD Pre-visit Planning ((Unable to reach for PVP screening, LVM)) 05/27/2024 Refill [facility] MEDICINE [address], [place] [phone] Cara Carlin MD 05/02/2024 Refill [facility] MEDICINE [address], [place] [phone] Cara Carlin MD from Last 3 Months Immunizations Name Administration Dates Next Due Hep B, adult 08/25/2023(Deferred: Patient decision - Skeptical of vaccines) Influenza injectable quadriv alent IIV4 with preservative 12/13/2015,12/26/2014 Influenza injectable quadriv alent preservative free 01/09/2021 Influenza, Split (incl. kendra fied surface antigen) 12/02/2011 MMR 01/06/2001 Moderna Covid-19 Vaccine 12+ 08/25/2023(Deferred : Patient Refused) Pneumococcal Conjugate PCV 20 08/25/2023 (Deferred: Patient decision - Skeptical of vaccines) Pneumococcal Polysaccharide PPSV23 10/12/2016 Td (adult), 5 Lf tetanus tox oid, preservative free, adsorbed 03/24/2016 Tdap 12/26/2014 Zoster, Recombinant 04/15/2022,10/29/2021 Family History Medical History Relation Name Comments Diabetes Mother Hypertension Mother Relation Name Status Comments Mother Social History Tobacco Use Types Packs/Day Years Used Date Smoking Tobacco: Never Smokeless Tobacco: Never Tobacco Cessation:Counseling Given: Not Answered Alcohol Use Standard Drinks/Week Comments Never 0 (1 standard drink = 0.6 oz pur e alcohol) Depression Answer Date Recorded Patient Health Questionnaire-9 Score 5 12/08/2023 Patient Health Questionnaire-9 Score 5 12/08/2023 Last PHQ-9: Questionnaire Data Not on file 0 12/08/2023 Housing Stability Answer Date Recorded What is your housing situation today? I have [place] 12/08/[address] you li ve. Do you have problems with any of the following? None of the above 12/08/2023 Food Insecurity Answer Date Recorded Within the past 12 months, y ou worried that your food would run out before you got money to buy more: Never True 12/08/2023 Within the past 12 months,th e food you bought just didn't last and you didn't have enough money to get more: Never True 01/2024 Transportation Answer Date Recorded In the past 12 months, has l ack of transportation kept you from medical appts, meetings, work or from getting things needed for daily living? No 12/08/2023 Utilities Answer Date Recorded In the past 12 months, has t he [employer], gas, oil or water company threatened to shut off services in your home? No 12/08/2023 Depression Answer Date Recorded Patient Health Questionnaire-2 Score 3 12/08/2023 Internet Access Answer Date Recorded Internet Access Q1 No 12/08/2023 Internet Access Q2 I do not want or need it 11/27 Comments Unknown Sex and Gender Information Value Date Recorded Sex Assigned at Female 01/26/2022 10:14 AM EDT Legal Sex Female 10:14 AM EDT Gender Identity Female 01/26/2022 10:14 AM EDT Sexual Orientation Choose not to disclose 2021 10:14 AM EDT Last Filed Vital Signs Vital Sign Reading Time Taken Comments Blood Pressure 144/88 06/13/2024 9:36 AM EDT Pulse 104 06/13/2024 9:36 AM EDT Temperature 36.1 ??C (96.9 ??F) 06/13/2024 9:36 AM ED T Respiratory Rate 16 01/14/2024 9:16 AM EDT Oxygen Saturation 98% 06/13/2024 9:36 AM EDT Inhaled Oxygen Concentration - - Weight 73.9 kg (163 lb) 06/13/2024 9:36 AM EDT Height 157.5 cm (5' 2 ) 06/13/2024 9:36 AM EDT Body Mass Index 29.81 06/13/2024 9:36 AM EDT Plan of Treatment Upcoming Encounters Date Type Department Care Team (Late st Contact Info) Description 09/13/2024 9:15 AM EDT Office Visit [facility] MEDICINE [address] [place] [address] Cara Carlin MD [address] [place] [address] Health Maintenance Due Date Last Done Comments CT Colonography 1965 Colonoscopy 1965 Colorectal Cancer Screening 1965 FIT DNA/Cologuard 1965 FIT 1965 FOBT 1965 HIV Screening 1965 Sigmoidoscopy 1965 Alcohol/Substance Use Screening 1977 Hepatitis B Vaccines (1 of 3 - 19+ 3-dose series) 01/28/1984 Pneumococcal Vaccine: 50+ Years (2 of 2 - PCV) 10/12/2017 10/12/2016 Mammogram 04/28/2023 04/25/2022, 05/28, 05/05/2019 COVID-19 Vaccine ( - season) 2023 08/08/2021, 03/04/2021, 07/02/2020, Additional history exists Influenza Vaccine (#1) 2023 , 12/13/2015, 12/26/2014, Additional history exists Diabetes: Foot Exam 01/09/2024 01/08/2023, 01/08/2023, 01/08/2023, Additional history exists Diabetes: Hemoglobin A1C 09/13/2024 025, 12/08/2023, 12/08/2023, Additional history exists Depression Screening 12/07/2024 12/08/2023, 12/08/19 Diabetes: Urine Protein Screening 12/07/2024 12/08/2023, 11/11/2022, 01/07/2021 Lipid Panel 12/07/2024 12/08/2023, 10/27, 01/07/2021, Additional history exists SDOH Screening 12/07/2024 12/08/2023 Eye Exam 12/16/2024 12/17/2023, 11/28, 12/17/2023, Additional history exists Tobacco Screening 06/13/2025 06/13/2024 DTaP/Tdap/Td Vaccines (3 - Td or Tdap) 03/24/2026 03/24/2016, 12/26/2014 RSV Patients and Patients Aged 60 years or older (1 - 1-dose 75+ series) 01/28/2040 Cervical Cancer Screening Discontinued HPV/Cotest Discontinued 07/29/2016 Zoster Vaccines Completed 04/15/2022, 10/29/2021 Hepatitis C Screening Completed 12/08/2023 HIB Vaccines Aged Out No longer eligi ble based on patient's age to complete this topic HPV Vaccines Aged Out No longer eligi ble based on patient's age to complete this topic Hepatitis A Vaccines Aged Out No long er eligible based on patient's age to complete this topic IPV Vaccines Aged Out No longer eligi ble based on patient's age to complete this topic Meningococcal Vaccine Aged Out No alvarez henny eligible based on patient's age to complete this topic Pap Smear Discontinued RSV under 20 months Aged Out No longe r eligible based on patient's age to complete this topic Rotavirus Vaccines Aged Out No longer eligible based on patient's age to complete this topic Goals Goal Patient Goal Type Associated Problems Recent Progress Patient-Stated? Author Blood Pressure < 140/90 Blood Pressure 144/88(2024 9:36 AM EDT) No Presley Joe, Elsy Hemoglobin A1c < 7 Result Component 7.6( 9:37 AM EDT) No Presley Joe PharmD Procedures Procedure Name Priority Date/Time Associated Diagnosis Comments POCT GLYCATED HEMOGLOBIN, TOTAL Routine 06/13/2024 9:37 AM EDT Type 2 diabetes mellitus with hyperglycemia, with long-term current use of insulin ([facility]) POCT GLUCOSE Routine 06/13/2024 9:37 AM EDT Type 2 diabetes mellitus with hyperglycemia, with long-term current use of insulin ([facility]) ALBUMIN, RANDOM URINE W/CREATININE Routine 12/08/2023 11:07 AM EDT Type 2 diabetes mellitus with hyperglycemia, with long-term current use of insulin ([facility]) Essential hypertension Other hyperlipidemia Epigastric pain Positive depression screening BMI 28.0-28.9,adult HEPATITIS PANEL, GENERAL Routine 12/08/2023 11:04 AM EDT Type 2 diabetes mellitus with hyperglycemia, with long-term current use of insulin ([facility]) Essential hypertension Other hyperlipidemia Epigastric pain Positive depression screening BMI 28.0-28.9,adult Encounter for screening for other viral diseases LIPID PANEL, STANDARD Routine 12/08/2023 11:04 AM EDT Type 2 diabetes mellitus with hyperglycemia, with long-term current use of insulin ([facility]) Essential hypertension Other hyperlipidemia Epigastric pain Positive depression screening BMI 28.0-28.9,adult HM DIABETES EYE EXAM Routine 12/10/2021 MAMMOGRAM GENERIC Routine 06/21/2020 3:0 0 PM EDT ZZZ HISTORICAL HPV MRNA E6/E7 Routine 07/29/2016 10:10 AM EDT from Last 3 Months or Most Recently Relevant to Health Maintenance Results * (ABNORMAL) POCT HGB A1C (06/13/2024 9:37 AM EDT) Hemoglobin A1C 7.6(A) 4.0 - 6.0 % QC Media Lot # [id number] Lot# Expiration Date [id number] Blood 06/13/2024 9:37 AM EDT Cara Carlin MD POINT OF CARE TEST ENTER /EDIT ORDERABLES Final Result * POCT Glucose (06/13/2024 9:37 AM EDT) Glucose Blood, POC 94 60 - 200 mg/dL QC Media Lot # [id number] Lot# Expiration Date [id number] Blood Capillary blood specimen / Unknown 06/13/2024 9:37 AM EDT Cara Carlin MD POINT OF CARE TEST ENTER /EDIT ORDERABLES Final Result * Albumin, Random Urine W/Creatinine (12/08/2023 11:07 AM EDT) Creatinine, Urine 51.65 mg/dL [facility] Microalbumin Urine <5.0 mg/L [facility] Microalbum Creatinine Ratio Ur TNP <30 ug/mg cr [facility] Comment:Unable to calculate albumin/creatinine ratio due to lowmicroalbumin or creatinine result. Urine (Urine, Random) 12/08/2023 11:07 AM EDT 12/08/2023 1:55 PM EDT Raya Garzon DO LAB URINE ORDERABLES Final R esult Performing Organization Address City/State/[facility] Co de Phone Number [facility] [address] [place] [phone] [phone] * Hepatitis A,B,C Profile (12/08/2023 11:04 AM EDT) Hepatitis A IgM Nonreactive Nonreactive [facility] Comment:IgM antibodies to EVANS V not detected; does not exclude earlyacute or recovered HAV infection. ~Hepatitis B Surface Antibody NONREACTIVE Nonreactive [facility] Comment:Nonreactive: < 8.00 mIU/mL Hepatitis B Core Antibody Nonreactive Nonreactive [facility] Hepatitis C Antibody Nonreactive Nonreactive [facility] Comment:Antibodies to HCV no t detected; does not exclude early acuteHCV infection. Hepatitis B Surface Ag Negative Negative [facility] Blood Venous blood specimen / Unknown 12/08/2023 11:04 AM EDT 12/08/2023 1:40 PM EDT Raya Garzon DO LAB BLOOD ORDERABLES Final R esult Performing Organization Address [facility] Co de Phone Number [facility] [address] [place] [phone] * (ABNORMAL) Lipid Panel, Standard (12/08/2023 11:04 AM EDT) Triglycerides 145 <150 mg/dL [facility] Comment:Desirable Triglyceri de: less than 150 mg/dLBorderline High Triglyceride 150-199 mg/dLHigh Triglyceride: 200-499 mg/dLVery High Triglyceride: greater than or equal to 5OO mg/dL Cholesterol 82 <200 mg/dL [facility] Comment:Desirable Cholestero l: less than 200 mg/dLBorderline High Cholesterol: 200-239 mg/dLHigh Cholesterol: greater than 239 mg/dL LDL Cholesterol Calculated 22 <100 mg/dL [facility] Comment:Desirable LDL: less than 100 mg/dLNear Optimal/Above Optimal LDL: 110- 129 mg/dLBorderline High LDL: 130-159 mg/dLHigh LDL: 160-189 mg/dLVery High LDL: greater than or equal to 190 mg/dL HDL Cholesterol 31(L) >40 mg/dL [facility] Comment:Desirable HDL: great er than 40 mg/dL Note: This HDL assay may give artificially low results in patients with liver disease. Blood Venous blood specimen / Unknown 12/08/2023 11:04 AM EDT 12/08/2023 1:40 PM EDT Raya Garzon DO LAB BLOOD ORDERABLES Final R esult [facility] [address] [place] [phone] * (ABNORMAL) Diabetes Eye Exam (12/10/2021) Eye Exam Abnormal( A) Normal Comment:mild nonproliferativ e diabetic renopathy in both eyes 12/10/2021 Cara Carlin MD HEALTH MAINTENANCE Final Result * Mammography Report 1 (06/21/2020 3:00 PM EDT) Anatomical Region Laterality Modality Breast Bilateral Mammography 06/21/2020 3:00 PM EDT Narrative 06/21/2020 4:06 PM EDT Refer to the Notes tab for result details [facility] Procedure: Mammography Report 1 Procedure Note Provider, MD Jose E - 06/20/2022 Refer to the Notes tab for result details [facility] Procedure: Mammography Report 1 Cara Carlin MD IMG BI PROCEDURES Final Result * HPV mRNA E6/E7 (07/29/2016 10:10 AM EDT) HPV mRNA E6/E7 Not Detected NOT DETECTED [facility] Comment: This test was performed using the APTIMA(R) HPV Assay ([employer] This assay detects E6/E7 viral messenger RNA (mRNA) from 14 high-risk HPV types (16,18,31,33,35,39,45,51, 52,56,58,59,66,68). For additional information please refer to: http://education.Re.Mu/faq/PTV735x7 (This link is being provided for informational/ educational purposes only.) Test Performed by [facility], [facility], [address] [place] [phone] Samy Clemens M.D., Ph.D., Director of Laboratories , [facility] [id number] Please note: ??Effective 12/09/2015, HPV testing will be performed using [employer]'s APTIMA test which targets mRNA. Detecting mRNA instead of DNA, as in older methods, offers significant improvements in specificity. 07/29/2016 10:1 0 AM EDT Shayy Hughes CNM HISTORICAL/NON ORDERABLE LABS Final Result [facility], [facility] Anywhere [address] from Last 3 Months or Most Recently Relevant to Health Maintenance Insurance MEDICARE Member Subscriber Plan / Payer (Ef fective 2009-Present) Name:Juanis Brown Member ID:[id number] Relation to Subscriber:Self Name:Juanis Brown Subscriber ID:[id number] Payer ID:STATE Group ID:Not on file Type:Medicare Address: [place] [employer] [facility], [facility]. [address] [place] [phone] [facility] Care Teams Bucket Pusher Relationship Specialty Start Date End Date Cara Carlin MD [address] [place] [address] PCP - General Family Medicine 02/13/16 Presley Joe, ShayneD [address] [place] [address] Pharmacist Internal Medicine 04/15/23
--- OUTSIDE RECORDS SUMMARY | 2024-07-27 16:06 | XMS_ITS | Encounter Summary ---
Author Organization [facility] Address [address] [facility] [address] [place] [address] Care Team Providers Care Heading And Priming Operator Name Role Phone Cara Carlin MD Primary Care Provider + Presley Joe PharmD Unavailable [phone] Reason for Visit * Reason Comments Med Refill Encounter Details Date Type Department Care Team (Late Contact Info) Description 07/23/2022 Refill [facility] MEDICINE [address] [place] [phone] Leidy Arthur MD [address] [place] [phone] Social History Tobacco Use Types Packs/Day Years [...] Description 09/13/2024 9:15 AM EDT Office Visit [facility] MEDICINE [address] [place] [phone] Cara Carlin MD [address] [place] [address] [phone] documented as of this encounter Visit Diagnoses Not on filedocumented in this encounter Care Teams Heading And Priming Operator Relationship Specialty Start Date End Date Cara Carlin MD [address] [place] [address] [phone] PCP - General Family Medicine 02/13/16 Presley Joe, ShayneD [address] [place] [address] [place] [address] Pharmacist Internal Medicine 04/15/23 documented as of this encounter
--- OUTSIDE RECORDS SUMMARY | 2024-07-27 16:06 | XMS_ITS | Encounter Summary ---
Author Organization [facility] Address [address] [facility] 7t [place] [address] Care Team Providers Care Laborer Vegetable Farm Name Role Phone Cara Carlin MD Primary Care Provider + Presley Joe PharmD Unavailable [phone] Encounter Details Date Type Department Care Team (Late Contact Info) Description 06/15/2022 Orders Only [facility] MED & PEDS [address] [place] [address] Raya Barron LPN Social History Tobacco Use [...] Description 09/13/2024 9:15 AM EDT Office Visit [facility] MEDICINE [address] [place] [address] Cara Carlin MD 230 [place] [address] documented as of this encounter Visit Diagnoses Not on filedocumented in this encounter Care Teams Laborer Vegetable Farm Relationship Specialty Start Date End Date Cara Carlin MD 230 [place] [address] PCP - General Family Medicine 02/13/16 Presley Joe, PharmD 230 [place] [address] Pharmacist Internal Medicine 04/15/23 documented as of this encounter
--- OUTSIDE RECORDS SUMMARY | 2024-07-27 16:06 | XMS_ITS | Encounter Summary ---
Author Organization [employer] Address [address] 7t [place] [address] Care Team Providers Care Counselor Marriage And Family Name Role Phone Cara Carlin MD Primary Care Provider + Presley Joe PharmD Unavailable [phone] Reason for Visit * Reason Comments Med Refill Encounter Details Date Type Department Care Team (Late st Contact Info) Description 04/29/2023 Refill [facility] MEDICINE 230 [place], [place] [phone] Cara Carlin MD 230 [place], [place] [phone] Social History Tobacco Use Types Packs/Day Years Used Date Smoking Tobacco: Never Smokeless Tobacco: Never Alcohol Use Standard Drinks/Week Comments Never 0 (1 standard drink = 0.6 oz pur e alcohol) PHQ-2 Answer Date Recorded Patient Health Questionnaire-2 Score 0 10/20/2022 Housing Stability Answer Date Recorded What is your housing situation today? I have [place] 01/15/[address] you [...] Description 09/13/2024 9:15 AM EDT Office Visit [facility] 230 [place], [place] [phone] Cara Carlin MD 230 [place] [address] documented as of this encounter Goals Goal Patient Goal Type Associated Problems Recent Progress Patient-Stated? Author Blood Pressure < 140/90 Blood Pressure 144/88(2024 9:36 AM EDT) No Presley Joe PharmD Hemoglobin A1c < 7 Result Component 7.6( 9:37 AM EDT) No Presley Joe PharmD documented as of this encounter Visit Diagnoses Not on filedocumented in this encounter Care Teams Counselor Marriage And Family Relationship Specialty Start Date End Date Cara Carlin MD [address] [place] [address] PCP - General Family Medicine 02/13/16 Presley Joe PharmD [address] [place] [address] [phone] Pharmacist Internal Medicine 04/15/23 documented as of this encounter
--- OUTSIDE RECORDS SUMMARY | 2024-07-27 16:06 | XMS_ITS | Clinical Summary ---
Author Organization [facility] ity Address [address] [place] [address] Care Team Providers Care Database Administration Associate Name Role Phone Unavailable Primary Care Provider Unavailabl e Social History Tobacco Use Types Packs/Day Years Used Date Smoking Tobacco: Never Assessed Comments Unknown Sex and Gender Information Value Date Recorded Sex Assigned at Not on file Legal Sex Female 5:34 PM EDT Gender Identity Not on file Sexual Orientation Not on file Plan of Treatment Health Maintenance Due Date Last Done Comments Breast Cancer Screening 1965 DTaP,Tdap,and Td Vaccines (1 - Tdap) 01/28/1984 Hepatitis B Vaccines (1 of 3 - 19+ 3-dose series) 01/28/1984 Cervical Cancer Screening: P ap Smear 1986 Pneumococcal Vaccine: 50+ Ye ars (1 of 1 - PCV) 2015 Zoster Vaccines (1 of 2) 2015 COVID-19 Vaccine ( - 2023-2 5 season) 2023 Influenza Vaccine (Season Ended) 2024 RSV Immunization Adult Patie nts (1 - 1-dose 75+ series) 01/28/2040 HIB Vaccines Aged Out No longer eligi [...] on patient's age to complete this topic MMR Vaccines Aged Out No longer eligi ble based on patient's age to complete this topic Meningococcal ACWY Vaccine Aged Out N o longer eligible based on patient's age to complete this topic Meningococcal B Vaccine Aged Out No l onger eligible based on patient's age to complete this topic Pneumococcal Vaccine: Pediat rics (0 to 5 Years) and At-Risk Patients (6 to 64 Years) Aged Out No longer eligible b ased on patient's age to complete this topic RSV Immunization Patients Un new 20 months Aged Out No longer eligible b ased on patient's age to complete this topic Varicella Vaccines Aged Out No longer eligible based on patient's age to complete this topic
--- OUTSIDE RECORDS SUMMARY | 2024-07-27 16:06 | XMS_ITS | Encounter Summary ---
Author Organization [facility] Address [address] [facility] 7t [place] [address] Care Team Providers Care Customer Relations Consultant Name Role Phone Cara Carlin MD Primary Care Provider + Presley Joe PharmD Unavailable [phone] Encounter Details Date Type Department Care Team (Late Contact Info) Description 10/19/2022 Orders Only [facility] MEDICINE 230 [place] [address] Christa Rich LPN Social History Tobacco Use Types Packs/Day Years Used Date Smoking Tobacco: Never Assessed PHQ-2 Answer Date Recorded Patient Health Questionnaire-2 [...] Description 09/13/2024 9:15 AM EDT Office Visit [facility] MEDICINE [address] [place] [address] Cara Carlin MD [address] [place] [address] [phone] documented as of this encounter Visit Diagnoses Not on filedocumented in this encounter Care Teams Customer Relations Consultant Relationship Specialty Start Date End Date Cara Carlin MD [address] [place] [address] [phone] PCP - General Family Medicine 02/13/16 Presley Joe, PharmD [address] [place] [address] [place] [address] Pharmacist Internal Medicine 04/15/23 documented as of this encounter
--- OUTSIDE RECORDS SUMMARY | 2024-07-27 16:06 | XMS_ITS | Encounter Summary ---
Author Organization [employer] [facility] Address [address]t [place] [address] Care Team Providers Care Cigarette Carton Sealer Name Role Phone Cara Carlin MD Primary Care Provider + Presley Joe PharmD Unavailable [phone] Encounter Details Date Type Department Care Team (Late Contact Info) Description 09/23/2022 Orders Only [facility] CH[facility] MED & PEDS [address] [place] [address] Raya Barron LPN Social History Tobacco Use [...] Description 09/13/2024 9:15 AM EDT Office Visit [facility] MEDICINE 230 [place] [address] Cara Carlin MD 230 [place] [address] documented as of this encounter Visit Diagnoses Not on filedocumented in this encounter Care Teams Cigarette Carton Sealer Relationship Specialty Start Date End Date Cara Carlin MD 230 [place] [address] PCP - General Family Medicine 02/13/16 Presley Joe, PharmD 230 [place] [address] Pharmacist Internal Medicine 04/15/23 documented as of this encounter
--- OUTSIDE RECORDS SUMMARY | 2024-07-27 16:06 | XMS_ITS | Encounter Summary ---
Author Organization [employer] Address [address] [facility] 7t [place] [address] Care Team Providers Care Laundry Laborer Name Role Phone Cara Carlin MD Primary Care Provider + Presley Joe PharmD Unavailable [phone] Reason for Visit * Reason Comments Med Refill Encounter Details Date Type Department Care Team (Late st Contact Info) Description 11/19/2022 Refill [facility] MEDICINE 230 [place], [place] [phone] Cara Carlin MD 230 [place], [place] [phone] Type 2 diabetes mellitus without complications (CMS/HCC) [...] AM EDT documented as of this encounter Miscellaneous Notes * Telephone Encounter - Jolene Haynes RN - 11/20/2022 10:32 AM EDT TC placed to pt. Reminded pt. PCP Raegan was only intending to refill CGM supplies for a short period of time until pt. Was able to be re established with [facility] endocrinology (last seen 2020, office had reported to us in July that pt. Would still be considered an active pt. And could call to schedule f/up). Noted pt. Still has not had appt. With them. Pt. Reports she does not understand this and requested we call to explain. TC placed to and he reports he is not aware of any appt. With endocribology, but he will call their office to schedule. documented in this encounter Plan of Treatment Upcoming Encounters Date Type Department Care Team (Late st Contact Info) Description 09/13/2024 9:15 AM EDT Office Visit [facility] MEDICINE [address] [place] [address] Cara Carlin MD [address] [place] [address] documented as of this encounter Visit Diagnoses Diagnosis Type 2 diabetes mellitus without complications (CMS/HCC) documented in this encounter Care Teams Laundry Laborer Relationship Specialty Start Date End Date Cara Carlin MD [address] [place] [address] PCP - General Family Medicine 02/13/16 Presley Joe, Elsy [address] [place] [address] Pharmacist Internal Medicine 04/15/23 documented as of this encounter
--- OUTSIDE RECORDS SUMMARY | 2024-07-27 16:06 | XMS_ITS | Encounter Summary ---
Author Organization [employer] [facility] Address [address] [facility] 7t [place] [address] Care Team Providers Care Automatic Buffer Name Role Phone Cara Carlin MD Primary Care Provider + Presley Joe PharmD Unavailable [phone] Encounter Details Date Type Department Care Team (Late Contact Info) Description 07/23/2022 Orders Only [facility] CH[facility] MED & PEDS [address] [place] [address] Raya Barron LPN Social History Tobacco Use [...] Office Visit [facility] MEDICINE 230 [place] [address] Cara Carlin MD 230 [place] [address] documented as of this encounter Visit Diagnoses Not on filedocumented in this encounter Care Teams Automatic Buffer Relationship Specialty Start Date End Date Cara Carlin MD 230 [place] [address] PCP - General Family Medicine 02/13/16 Presley Joe, PharmD 230 [place] [address] Pharmacist Internal Medicine 04/15/23 documented as of this encounter
== END 2024-07-27 13:52 | disposition home or self-care (01) ==
LOC: HO.HAP 13:51
PROVIDERS: Visit Provider Internal Medicine
DX: Z46.1 Encounter for fitting and adjustment of hearing aid (principal); H90.3 Sensorineural hearing loss, bilateral
CPT/HCPCS: 92592

== ENCOUNTER 2024-08-24 13:42 | Outpatient (REF) | payer MEDICARE, MEDICAID, SELFPAY ==
--- OUTSIDE RECORDS SUMMARY | 2024-08-24 13:49 | XMS_ITS | Encounter Summary ---
Author Organization [employer] Address [address] [facility] 7t [place] [address] Care Team Providers Care Electrolysis Operator Name Role Phone Cara Carlin MD Primary Care Provider + Presley Joe PharmD Unavailable [phone] Encounter Details Date Type Department Care Team (Late Contact Info) Description 10/19/2022 Orders Only [facility] MEDICINE 230 [place] [address] Christa Rich LPN Social History Tobacco Use [...] AM EDT documented as of this encounter Functional Status * Over the past 2 weeks, how often have you been bothered by any of the following problems? Question Answer Date of Assessment Author Little interest or pleasure in doing things Not at all 10/20/2022 9:41 AM EDT [place] Govea [place] Feeling down, depressed, or hopeless Not at all 10/20/2022 9:41 AM EDT [place] Patient Health Questionnaire-2 Score 0 10/20/2022 9:41 AM EDT Arie Govea [place] documented as of this encounter Plan of Treatment Upcoming Encounters Date Type Department Care Team (Late Contact Info) Description 09/13/2024 9:15 AM EDT Office Visit [facility] MEDICINE 230 [place] [address] Cara Carlin MD 230 [place] [address] documented as of this encounter Visit Diagnoses Not on filedocumented in this encounter Care Teams Electrolysis Operator Relationship Specialty Start Date End Date Cara Carlin MD [address] [place] [address] PCP - General Family Medicine 02/13/16 Presley Joe, ShayneD [address] [place] [address] Pharmacist Internal Medicine 04/15/23 documented as of this encounter
== END 2024-08-24 13:43 | disposition home or self-care (01) ==
LOC: HO.HAP 13:42
PROVIDERS: Visit Provider Internal Medicine
DX: Z46.1 Encounter for fitting and adjustment of hearing aid (principal); H90.3 Sensorineural hearing loss, bilateral
CPT/HCPCS: 92592; V5266

== ENCOUNTER 2025-03-24 07:35 | Emergency (ER) | payer MEDICARE, MEDICAID, SELFPAY ==
--- NOTE | ~2025-03-24 | XR_ITS ---
CLINICAL HISTORY: CONGESTION 2 view chest x-ray. Comparison: None Findings: The lungs are adequately expanded. No focal consolidation. No effusion or pneumothorax. Cardiac and mediastinal contours are within normal limits. No acute osseous abnormality Impression: No acute process. This document has been electronically signed by: Isai Florian MD on 03/24/2025 09:17:55
[2025-03-24 07:39] VITALS: BP 152/65; PULSE 94; RESP 18; TEMP 36.2; O2SAT 98; BMI 26.6
[2025-03-24 08:29] LABS: Resp Syncy Virus RNA Qual PCR NEGATIVE (Negative); SARS COV2 PCR INHOUSE NEGATIVE (Negative)
--- OUTSIDE RECORDS SUMMARY | 2025-03-24 08:48 | XMS_ITS | Encounter Summary ---
Author Organization [employer] [facility] Address [address] [facility] 7t [place] [address] Care Team Providers Care Director Foundation Name Role Phone Cara Carlin MD Primary Care Provider + Presley Joe PharmD Unavailable [phone] Encounter Details Date Type Department Care Team (Late st Contact Info) Description 09/23/2022 Orders Only [facility] MED & PEDS [address] [place], [place] [phone] Raya Barron LPN Social History Tobacco Use [...] as of this encounter Plan of Treatment Not on file documented as of this encounter Visit Diagnoses Not on filedocumented in this encounter Care Teams Director Foundation Relationship Specialty Start Date End Date Cara Carlin MD [address] [place] [address] PCP - General Family Medicine 02/13/16 Presley Joe, PharmD 230 [place], [place] [phone] Pharmacist Internal Medicine 04/15/23 documented as of this encounter
--- OUTSIDE RECORDS SUMMARY | 2025-03-24 08:48 | XMS_ITS | Encounter Summary ---
Author Organization [facility] [facility] Address [address] [facility] 7t [place] [address] Care Team Providers Care Hair Specialist Name Role Phone Cara Carlin MD Primary Care Provider + Presley Joe PharmD Unavailable [phone] Encounter Details Date Type Department Care Team (Late st Contact Info) Description 07/23/[address] Orders [address] [facility] MED & PEDS [address] [place], [place] [phone] Raya Barron LPN Social History Tobacco Use [...] on filedocumented in this encounter Care Teams Hair Specialist Relationship Specialty Start Date End Date Cara Carlin MD [address] [place] [address] PCP - General Family Medicine 02/13/16 Presley Joe, PharmD 230 [place], [place] [phone] Pharmacist Internal Medicine 04/15/23 documented as of this encounter
--- OUTSIDE RECORDS SUMMARY | 2025-03-24 08:48 | XMS_ITS | Encounter Summary ---
Author Organization [employer] [facility] Address [address] [facility] 7t [place] [address] Care Team Providers Care Hot Plate Plywood Press Feeder Name Role Phone Cara Carlin MD Primary Care Provider + Presley Joe PharmD Unavailable [phone] Encounter Details Date Type Department Care Team (Late st Contact Info) Description 06/15/2022 Orders Only [facility] MED & PEDS [address] [place], [place] [phone] Raya Barron LPN Social History Tobacco Use [...] on filedocumented in this encounter Care Teams Hot Plate Plywood Press Feeder Relationship Specialty Start Date End Date Cara Carlin MD [address] [place] [address] PCP - General Family Medicine 02/13/16 Presley Joe, PharmD 230 [place], [place] [phone] Pharmacist Internal Medicine 04/15/23 documented as of this encounter
--- OUTSIDE RECORDS SUMMARY | 2025-03-24 08:48 | XMS_ITS | Encounter Summary ---
Author Organization [facility] [facility] Address [address] [facility] 7t [place] [address] Care Team Providers Care Pay Agent Name Role Phone Cara Carlin MD Primary Care Provider + Presley Joe PharmD Unavailable [phone] Reason for Visit * Reason Comments Med Refill Encounter Details Date Type Department Care Team (Late st Contact Info) Description 07/23/2022 Refill [facility] MEDICINE 230 [place] [address] Leidy Arthur MD 230 [place] [address] Social History Tobacco Use Types Packs/Day Years [...] on filedocumented in this encounter Care Teams Pay Agent Relationship Specialty Start Date End Date Cara Carlin MD [address] [place], [place] [phone] PCP - General Family Medicine 02/13/16 Presley Joe, PharmD [address] [place] [address] [phone] Pharmacist Internal Medicine 04/15/23 documented as of this encounter
--- OUTSIDE RECORDS SUMMARY | 2025-03-24 08:48 | XMS_ITS | Encounter Summary ---
Author Organization [employer] [facility] Address [address] [facility] 7t [place] [address] Care Team Providers Care Turpentine Farmer Name Role Phone Cara Carlin MD Primary Care Provider + Presley Joe PharmD Unavailable [phone] Encounter Details Date Type Department Care Team (Late st Contact Info) Description 10/19/2022 Orders Only [facility] MEDICINE 230 [place] [address] Christa Rich LPN Social History Tobacco Use [...] on filedocumented in this encounter Care Teams Turpentine Farmer Relationship Specialty Start Date End Date Cara Carlin MD 230 [place], [place] [phone] PCP - General Family Medicine 02/13/16 Presley Joe, PharmD [address] [place] [address] Pharmacist Internal Medicine 04/15/23 documented as of this encounter
--- OUTSIDE RECORDS SUMMARY | 2025-03-24 08:48 | XMS_ITS | Encounter Summary ---
Author Organization [employer] [facility] Address [address] [facility] 7t [place] [address] Care Team Providers Care Patient Account Representative Name Role Phone Cara Carlin MD Primary Care Provider + Presley Joe PharmD Unavailable [phone] Reason for Visit * Reason Comments Med Refill Encounter Details Date Type Department Care Team (Late st Contact Info) Description 11/19/2022 Refill [facility] MEDICINE 230 [place], [place] [phone] Cara Carlin MD 230 [place] [address] Type 2 diabetes mellitus without complications (CMS/HCC) [...] Was able to be re established with [facility]ology (last seen 2020, office had reported [...] documented in this encounter Plan of Treatment Not on file documented as of this encounter Visit Diagnoses Diagnosis Type 2 diabetes mellitus without complications (HCC) documented in this encounter Care Teams Patient Account Representative Relationship Specialty Start Date End Date Cara Carlin MD [address] [place] [address] PCP - General Family Medicine 02/13/16 Presley Joe, Elsy [address] [place] [address] Pharmacist Internal Medicine 04/15/23 documented as of this encounter
--- OUTSIDE RECORDS SUMMARY | 2025-03-24 08:48 | XMS_ITS | Encounter Summary ---
Author Organization [employer] Address [address] [place] [address] Care Team Providers Care Powder Blender Name Role Phone Cara Carlin MD Primary Care Provider + Presley Joe PharmD Unavailable [phone] Reason for Visit * Reason Comments Med Refill Encounter Details Date Type Department Care Team (Late st Contact Info) Description 04/29/2023 Refill [facility] MEDICINE 230 [place] [address] Cara Carlin MD 230 [place] [address] Social History Tobacco Use Types Packs/Day Years [...] on file documented as of this encounter Goals Goal Patient Goal Type Associated Problems Recent Progress Patient-Stated? Author Blood Pressure < 140/90 Blood Pressure 144/88(2024 9:36 AM EDT) No Presley Joe PharmD Hemoglobin A1c < 7 Result Component 7.6( 9:37 AM EDT) No Presley Joe PharmD documented as of this encounter Visit Diagnoses Not on filedocumented in this encounter Care Teams Powder Blender Relationship Specialty Start Date End Date Cara Carlin MD 230 [place] [address] PCP - General Family Medicine 02/13/16 Presley Joe PharmD 230 [place] [address] Pharmacist Internal Medicine 04/15/23 documented as of this encounter
--- OUTSIDE RECORDS SUMMARY | 2025-03-24 08:48 | XMS_ITS | Encounter Summary ---
Author Organization [employer] Address [address] [facility] 7t [place] [address] Care Team Providers Care Penal Officer Name Role Phone Cara Carlin MD Primary Care Provider + Presley Joe PharmD Unavailable [phone] Encounter Details Date Type Department Care Team (Late st Contact Info) Description 11/25/2022 Orders Only [facility] MED & PEDS [address] [place], [place] [phone] Raya Barron LPN Social History Tobacco Use [...] on filedocumented in this encounter Care Teams Penal Officer Relationship Specialty Start Date End Date Cara Carlin MD 230 [place], [place] [phone] PCP - General Family Medicine 02/13/16 Presley Joe, PharmD 230 [place], [place] [phone] Pharmacist Internal Medicine 04/15/23 documented as of this encounter
--- OUTSIDE RECORDS SUMMARY | 2025-03-24 08:48 | XMS_ITS | Encounter Summary ---
Author Organization [employer] Address [address] [facility] 7t [place] [address] Care Team Providers Care Boxcar Weigher Name Role Phone Cara Carlin MD Primary Care Provider + Presley Joe PharmD Unavailable [phone] Encounter Details Date Type Department Care Team ([facility] st Contact Info) Description 04/30/2022 Orders Only [facility] CHC MED & PEDS [address] [place], [place] [phone] Raya Barron LPN Social History Tobacco Use [...] on filedocumented in this encounter Care Teams Boxcar Weigher Relationship Specialty Start Date End Date Cara Carlin MD 230 [place], [place] [phone] PCP - General Family Medicine 02/13/16 Presley Joe, PharmD 230 [place], [place] [phone] Pharmacist Internal Medicine 04/15/23 documented as of this encounter
--- OUTSIDE RECORDS SUMMARY | 2025-03-24 08:49 | XMS_ITS | Encounter Summary ---
Author Organization [employer] Address [address] [place] [address] Care Team Providers Care Facilities Painter Name Role Phone Cara Carlin MD Primary Care Provider + Presley Joe PharmD Unavailable [phone] Reason for Visit * Reason Comments Med Refill Encounter Details Date Type Department Care Team (Late st Contact Info) Description 04/15/2023 Refill [facility] MEDICINE 230 [place], [place] [phone] Cara Carlin MD 230 [place] [address] Type 2 diabetes mellitus without complications (CMS/HCC) [...] (HCC) documented in this encounter Care Teams Facilities Painter Relationship Specialty Start Date End Date Craa Carlin MD 230 [place] [address] PCP - General Family Medicine 02/13/16 Presley Joe PharmD 230 [place] [address] Pharmacist Internal Medicine 04/15/23 documented as of this encounter
--- OUTSIDE RECORDS SUMMARY | 2025-03-24 08:49 | XMS_ITS | Clinical Summary ---
Author Organization [employer] Address [address] [facility] [address] [place] [address] Care Team Providers Care Filter Press Operator Name Role Phone Cara Carlin MD Primary Care Provider + Presley Joe PharmD Unavailable [phone] Allergies No known active allergies Medications Lancets (OneTouch Delica Plus [id number]) miscIndications:T ype 2 diabetes mellitus without complications (HCC) TEST BLOOD SUGAR 4 TIMES A DAY 100 each 11 04/15/19 24 Active omeprazole (PriLOSEC) [address] capsule Take 40 mg by mouth Once per day. 10/16/19 24 Active magnesium 80 MG tablet Purchases OTC - Unclear Strength - Daily as needed for muscle spasms Active POTASSIUM GLUCONATE PO Purchases OTC - Unknown Strength - Daily as needed Active FreeStyle Precision Dennis Test test stripIndications: Type 2 diabetes mellitus with hyperglycemia, with long-term current use of insulin (HCC) USE DIRECTED TO TEST BLOOD SUGAR EVERY 8 HOURS NEEDED 50 strip 5 10/05/19 25 Active BD Pen Needle Lesli Ultrafine 32G X 4 MM misc USE DIRECTED TO TEST BLOOD SUGAR FOUR TIMES DAILY 100 each 11/01/19 25 Active Continuous Glucose Sensor (FreeStyle Rissa 2 Sensor) miscIndications:T ype 2 diabetes mellitus without complications (HCC) USE DIRECTED TO TEST BLOOD SUGAR FOUR TIMES DAILY CHANGE EVERY 14 DAYS 2 each 5 10:25 AM EST 11/09/19 25 Active metFORMIN (Glucophage) 1000 MG tablet TAKE 1 TABLET BY MOUTH TWICE DAILY IN THE MORNING AND IN THE EVENING WITH MEALS 180 tablet 3 11/15/19 25 Active losartan (Cozaar) 50 MG tablet TAKE 1 TABLET BY MOUTH EVERY MORNING 90 tablet 3 5 10:24 AM EST 11/15/19 25 Active Alcohol Swabs (Alcohol Prep) 70 % pads USE DIRECTED THREE TIMES DAILY 100 each 5 5 1:11 PM EST 11/15/19 25 Active metFORMIN (Glucophage) 1000 MG tablet Take 1 tablet (1,000 mg) by mouth with breakfast and with evening meal. 180 tablet 1 5 1:11 PM EST 11/15/19 25 Active amLODIPine (Norvasc) 5 MG tablet TAKE 1 TABLET BY MOUTH EVERY MORNING 90 tablet 3 5 10:24 AM EST 12/16/19 25 Active atorvastatin (Lipitor) 80 MG tablet Take 1 tablet (80 mg) by mouth in the morning. 90 tablet 3 12/16/19 25 Active hydroCHLOROthiazi de (HYDRODiuril) 25 MG tablet Take 1 tablet (25 mg) by mouth in the morning. 90 tablet 3 5 10:24 AM EST 12/16/19 25 Active Continuous Glucose Lead Front End Developer (Integrity IT SolutionsStyle Rissa 2 Krebs) deviceIndications :Type 2 diabetes mellitus without complications (HCC) TEST BLOOD SUGAR 4 TIMES A DAY 1 each 01/11/20 25 Active insulin aspart, with niacinamide, (Fiasp FlexTouch) 100 UNIT/ML injectionIndicati ons:Type 2 diabetes mellitus with hyperglycemia, with long-term current use of insulin ([facility]) INJECT 3 TO 15 UNITS SUBCUTANEOUSLY THREE TIMES DAILY PER SLIDING SCALE: 150-200 = 3 UNITS, 201-250 = 6 UNITS, 251-300 = 9 UNITS, 301-350 = 12 UNITS, > 350 = 15 UNITS AND CALL DOCTOR 45 mL 5 1:11 PM EST 01/23/20 25 Active ergocalciferol (Vitamin D2) 1.25 MG (09273 UT) capsuleIndication s:Vitamin D deficiency TAKE 1 CAPSULE BY MOUTH ONCE WEEKLY ON Wednesday 12 capsule 3 5 1:11 PM EST 01/31/20 25 Active Insulin Glargine-yfgn 100 UNIT/ML solution pen-injectorIndic ations:Type 2 diabetes mellitus with hyperglycemia, with long-term current use of insulin (HCC) INJECT 42 UNITS SUBCUTANEOUSLY AT BEDTIME 30 mL 3 02/06/20 25 Active Aspirin Low Dose 81 MG EC tablet TAKE 1 TABLET BY MOUTH EVERY EVENING 90 tablet 3 02/06/20 25 Active Active Problems Problem Noted Date Diagnosed Date Mild nonproliferative diabet ic retinopathy of both eyes without macular edema associated with type 2 diabetes mellitus 06/13/2024 Assessment & Plan (06/13/2024 10:45 AM EDT): See diabetes above, pt requested an appointment with [facility] instead. Overweight 06/13/2024 Assessment & [...] units FU 3 months Will refer to [facility] clinic Opthalmology eval 12/19. She decline flu and Covid IZ Assessment & Plan (10/20/2022 10:43 AM EDT): improving, A1C not at goal yet FU with hand straightener, pt has GCM device counseled to use [...] will refer to speech therapy Cerebrovascular accident (CMS/HCC) 10/16/2022 Adjustment disorder with depressed mood 03/13/20 [...] Encounters Date Type Department Care Team Description 03/16/[address] [address] Cara Carlin MD Prior Authorization (PA: (Fiasp FlexTouch) 100 UNIT/ML injection) 02/27/[address] [address] Cara Carlin MD No Show 02/26/[address] [address] Cara Carlin MD Chart Prep 02/16/[address] [address] Cara Carlin MD telephone call 02/13/2025 Patient Outreach [address] [address] Cara Carlin MD Pre-visit Planning ((Unable to reach for PVP screening, LVM) to be completed in office ) 02/04/2025 Refill [facility] [address] [place] [address] Cara Carlin MD Type 2 diabetes mellitus with hyperglycemia, with long-term current use of insulin (HCC) 01/29/2025 Refill [facility] [address] [place] [address] Cara Carlin MD Vitamin D deficiency 01/21/2025 Refill [facility] [address] [place] [address] Cara Carlin MD Type 2 diabetes mellitus with hyperglycemia, with long-term current use of insulin (HCC) 01/15/2025 Telephone [facility] [address] [place] [address] Jolene Haynes, DYLON CGM PA 01/09/2025 Refill [facility] [address], [place] [phone] Cara Carlin MD Type 2 diabetes mellitus without complications (HCC) from Last 3 Months Immunizations Immunization Administration Dates Next Due Hep B, adult [...] housing situation today? I have [place] 12/08/[address] you [...] 104 06/13/2024 9:36 AM EDT Temperature 36.1 C (96.9 F) 06/13/2024 9:36 AM EDT Respiratory Rate 16 01/14/2024 9:16 AM EDT Oxygen Saturation 98% 06/13/2024 9:36 AM EDT Inhaled Oxygen Concentration - - Weight 73.9 kg (163 lb) 06/13/2024 9:36 AM EDT Height 157.5 cm (5' 2 ) 06/13/2024 9:36 AM EDT Body Mass Index 29.81 06/13/2024 9:36 AM EDT Plan of Treatment Health Maintenance Due Date Last Done Comments CT Colonography 1965 Colonoscopy 1965 Colorectal Cancer Screening 1965 FIT DNA/Cologuard 1965 FIT 1965 FOBT 1965 HIV Screening 1965 Sigmoidoscopy 1965 Disability Screening 1965 Alcohol/Substance Use Screening 1977 RSV Patients and Patients Aged 60 years or older (1 - Risk 50-74 years 1-dose series) 2015 Pneumococcal Vaccine: 50+ Years (2 of 2 - PCV) 10/12/2017 10/12/2016 Mammogram 04/28/2023 04/25/2022, 05/28, 05/05/2019 Diabetes: Foot Exam 01/09/2024 01/08/2023, 01/08/2023, 01/08/2023, Additional history exists Diabetes: Hemoglobin A1C 09/13/2024 025, 12/08/2023, 12/08/2023, Additional history exists COVID-19 Vaccine ( season) 2024 08/08/2021, 03/04/2021, 07/02/2020, Additional history exists Influenza Vaccine (#1) 2024 , 12/13/2015, 12/26/2014, Additional history exists Depression Screening 12/07/2024 12/08/2023, 12/08/19 24 Diabetes: Urine Protein Screening 12/07/2024 12/08/2023, 11/11/2022, 11/11/2022, Additional history exists Lipid Panel 12/07/2024 12/08/2023, 10/27, 01/07/2021, Additional history exists SDOH Screening 12/07/2024 12/08/2023 Eye Exam 12/16/2024 12/17/2023, 11/28, 12/17/2023, Additional history exists Tobacco Screening 06/13/2025 06/13/2024 DTaP/Tdap/Td Vaccines (3 - Td or Tdap) 03/24/2026 03/24/2016, 12/26/2014 Cervical Cancer Screening Discontinued HPV/Cotest Discontinued 07/29/2016 [...] patient's age to complete this topic Hepatitis B Vaccines Aged Out No long er eligible [...] 144/88(2024 9:36 AM EDT) No Presley Joe, PharmEfrain Hemoglobin A1c < 7 Result Component 7.6( 9:37 AM EDT) No Presley Joe, Elsy Help patients manage their type 2 diabetes Care Plan Help patients manage their type 2 diabetes No Jackie Grider Weekly blood pressure task Care Plan Weekly blood pressure task No Jackie Grider Help patients manage their type 2 diabetes Care Plan Help patients manage their type 2 diabetes No Jackie Grider Patient has diabetic eye disease Care Plan Patient has diabetic eye disease No Jackie Grider Help patients manage their type 2 diabetes Care Plan Help patients manage their type 2 diabetes No Jackie Grider Patient has chronic kidney disease Care Plan Patient has chronic kidney disease No Jackie Grider Weekly blood pressure task Care Plan Weekly blood pressure task No Jackie Grider Weekly blood pressure task Care Plan Weekly blood pressure task No Jackie Grider Patient has diabetic eye disease Care Plan Patient has diabetic eye disease No Jackie Grider Patient has diabetic eye disease Care Plan Patient has diabetic eye disease No Jackie Grider Patient has chronic kidney disease Care Plan Patient has chronic kidney disease No Jackie Grider Patient has chronic kidney disease Care Plan Patient has chronic kidney disease No Jackie Grider Weekly blood pressure task Care Plan Weekly blood pressure task No Jessica Joe Weekly blood pressure task Care Plan Weekly blood pressure task No Jessica Joe Weekly blood pressure task Care Plan Weekly blood pressure task No Heath, Jessica Patient has diabetic eye disease Care Plan Patient has diabetic eye disease No Heath, Jessica Patient has diabetic eye disease Care Plan Patient has diabetic eye disease No Joe, Jessica Patient has diabetic eye disease Care Plan Patient has diabetic eye disease No Joe, Jessica Patient has chronic kidney disease Care Plan Patient has chronic kidney disease No Joe, Jessica Patient has chronic kidney disease Care Plan Patient has chronic kidney disease No Joe, Jessica Patient has chronic kidney disease Care Plan Patient has chronic kidney disease No Jessica Joe Weekly blood pressure task Care Plan Weekly blood pressure task No Yue Power MA Weekly blood pressure task Care Plan Weekly blood pressure task No Yue Power MA Weekly blood pressure task Care Plan Weekly blood pressure task No Yue Power [place] Patient has diabetic eye disease Care Plan Patient has diabetic eye disease No Yue Power [place] Patient has diabetic eye disease Care Plan Patient has diabetic eye disease No Yue Power [place] Patient has diabetic eye disease Care Plan Patient has diabetic eye disease No Yue Power [place] Patient has chronic kidney disease Care Plan Patient has chronic kidney disease No Yue Power [place] Patient has chronic kidney disease Care Plan Patient has chronic kidney disease No Yue Power [place] Patient has chronic kidney disease Care Plan Patient has chronic kidney disease No Yue Power MA Weekly blood pressure task Care Plan Weekly blood pressure task No Bere Couch MA Weekly blood pressure task Care Plan Weekly blood pressure task No Bere Couch MA Weekly blood pressure task Care Plan Weekly blood pressure task No Bere Couch [place] Patient has diabetic eye disease Care Plan Patient has diabetic eye disease No Bere Couch [place] Patient has diabetic eye disease Care Plan Patient has diabetic eye disease No Bere Couch [place] Patient has diabetic eye disease Care Plan Patient has diabetic eye disease No Bere Couch [place] Patient has chronic kidney disease Care Plan Patient has chronic kidney disease No Bere Couch [place] Patient has chronic kidney disease Care Plan Patient has chronic kidney disease No Bere Couch [place] Patient has chronic kidney disease Care Plan Patient has chronic kidney disease No Bere Couch [place] Weekly blood pressure task Care Plan Weekly blood pressure task No Brantley, Mile Weekly blood pressure task Care Plan Weekly blood pressure task No Brantley, Mile Weekly blood pressure task Care Plan Weekly blood pressure task No Brantley, Mile Patient has diabetic eye disease Care Plan Patient has diabetic eye disease No Brantley, Mile Patient has diabetic eye disease Care Plan Patient has diabetic eye disease No Brantley, Mile Patient has diabetic eye disease Care Plan Patient has diabetic eye disease No Brantley, Mile Patient has chronic kidney disease Care Plan Patient has chronic kidney disease No Brantley, Mile Patient has chronic kidney disease Care Plan Patient has chronic kidney disease No Brantley, Mile Patient has chronic kidney disease Care Plan Patient has chronic kidney disease No Brantley, Mile Weekly blood pressure task Care Plan Weekly blood pressure task No Luz Delgadillo Weekly blood pressure task Care Plan Weekly blood pressure task No Luz Delgadillo Weekly blood pressure task Care Plan Weekly blood pressure task No Luz Delgadillo Patient has diabetic eye disease Care Plan Patient has diabetic eye disease No Luz Delgadillo Patient has diabetic eye disease Care Plan Patient has diabetic eye disease No Luz Delgadillo Patient has diabetic eye disease Care Plan Patient has diabetic eye disease No Luz Delgadillo Patient has chronic kidney disease Care Plan Patient has chronic kidney disease No Luz Delgadillo Patient has chronic kidney disease Care Plan Patient has chronic kidney disease No Luz Delgadillo Patient has chronic kidney disease Care Plan Patient has chronic kidney disease No Luz Delgadillo Procedures Procedure Name Priority Date/Time Associated Diagnosis Comments SARS COV2/INFLUENZA A/B AND RSV RNA QL NAAT Routine 03/24/2025 7:48 AM EST Type 2 diabetes mellitus with hyperglycemia, with long-term current use of insulin ([facility]) POCT GLYCATED HEMOGLOBIN, TOTAL Routine 06/13/2024 9:37 AM EDT Type 2 diabetes mellitus with hyperglycemia, with long-term current use of insulin ([facility]) ALBUMIN, RANDOM URINE W/CREATININE Routine 12/08/2023 11:07 AM EDT Type 2 diabetes mellitus with hyperglycemia, with long-term current use of insulin ([facility]) Essential hypertension Other hyperlipidemia Epigastric pain Positive depression screening BMI 28.0-28.9,adult HEPATITIS PANEL, GENERAL Routine 12/08/2023 11:04 AM EDT Type 2 diabetes mellitus with hyperglycemia, with long-term current use of insulin (CMS/HCC) Essential hypertension Other hyperlipidemia Epigastric pain Positive depression screening BMI 28.0-28.9,adult Encounter for screening for other viral diseases LIPID PANEL, STANDARD Routine 12/08/2023 11:04 AM EDT Type 2 diabetes mellitus with hyperglycemia, with long-term current use of insulin (CMS/HCC) Essential hypertension Other hyperlipidemia Epigastric pain Positive depression screening BMI 28.0-28.9,adult HM DIABETES EYE EXAM Routine 12/10/2021 MAMMOGRAM GENERIC Routine 06/21/2020 3:0 0 PM EDT ZZZ HISTORICAL HPV MRNA E6/E7 Routine 07/29/2016 10:10 AM EDT from Last 3 Months or Most Recently Relevant to Health Maintenance Results * (ABNORMAL) SARS-CoV-2 RNA, Influenza A/B, and RSV RNA, Ql NAAT (03/24/2025 7:48 AM EST) Influenza A PCR POSITIVE(A) Negative [facility] Influenza B PCR NEGATIVE Negative [facility] Resp Syncy Virus RNA Qual PCR NEGATIVE Negative [facility] SARS COV2 PCR NEGATIVE Negative [facility] Comment:All test results mus t be correlated with clinical findings.Negative results do not preclude SARS-CoV2, influenza Avirus, influenza B virus and/or RSV infectionand should not be used as the sole basis for treatment orother patient management decisions. Negative results must becombined with clinical observations, patient history, andepidemiological information.This test has not been evaluated for monitoring treatment ofinfection.This test has been authorized by the FDA under an EmergencyUse Authorization (EUA) for use by authorized laboratories.Testing performed on the [employer] GeneXpert utilizingreal-time RT-PCR.All SARS CoV2 and positive influenza A/B results arereported to [facility]. 03/24/2025 7:48 AM EST 03/24/2025 7:51 AM EST Generic External Data Provider LAB MICROBIOLOGY - GENERAL ORDERABLES Final Result Performing Organization Address [facility] Co de Phone Number [facility] [address] [place] [phone] * (ABNORMAL) POCT HGB A1C (06/13/2024 9:37 AM EDT) Hemoglobin A1C 7.6(A) 4.0 - 6.0 % QC Media Lot # [id number] Lot# Expiration Date 120,52 Blood 06/13/2024 9:37 AM EDT Cara Carlin MD POINT OF CARE TEST ENTER /EDIT ORDERABLES Final Result * Albumin, Random Urine W/Creatinine (12/08/2023 11:07 AM EDT) Creatinine, Urine 51.65 mg/dL [facility] Microalbumin Urine <5.0 mg/L [facility] Microalbum Creatinine Ratio Ur TNP <30 ug/mg cr [facility] Comment:Unable to calculate albumin/creatinine ratio due to lowmicroalbumin or creatinine result. Urine (Urine, Random) 12/08/2023 11:07 AM EDT 12/08/2023 1:55 PM EDT us Raya Garzon DO LAB URINE ORDERABLES Final R esult Performing Organization Address City/[facility]/ZIP Co de Phone Number [facility] [address] [place] [phone] * Hepatitis A,B,C Profile (12/08/2023 11:04 AM EDT) Hepatitis A IgM Nonreactive Nonreactive [facility] Comment:IgM antibodies to EVANS V not detected; does not exclude earlyacute or recovered HAV infection. ~Hepatitis B Surface Antibody NONREACTIVE Nonreactive [facility] Comment:Nonreactive: < 8.00 mIU/mL Hepatitis B Core Antibody Nonreactive Nonreactive [facility] Hepatitis C Antibody Nonreactive Nonreactive [facility] Comment:Antibodies to HCV no t detected; does not exclude early acuteHCV infection. Hepatitis B Surface Ag Negative Negative [facility] Blood Venous blood specimen / Unknown 12/08/2023 11:04 AM EDT 12/08/2023 1:40 PM EDT Raya Garzon DO LAB BLOOD ORDERABLES Final R esult [facility] [address], [place] [phone] * (ABNORMAL) Lipid Panel, Standard (12/08/2023 11:04 AM EDT) Triglycerides 145 <150 mg/dL [facility] Comment:Desirable Triglyceri de: less than 150 mg/dLBorderline High Triglyceride 150-199 mg/dLHigh Triglyceride: 200-499 mg/dLVery High Triglyceride: greater than or equal to 5OO mg/dL Cholesterol 82 <200 mg/dL [facility] Comment:Desirable Cholestero l: less than 200 mg/dLBorderline High Cholesterol: 200-239 mg/dLHigh Cholesterol: greater than 239 mg/dL LDL Cholesterol Calculated 22 <100 mg/dL [facility] Comment:Desirable LDL: less than 100 mg/dLNear Optimal/Above Optimal LDL: 110- 129 mg/dLBorderline High LDL: 130-159 mg/dLHigh LDL: 160-189 mg/dLVery High LDL: greater than or equal to 190 mg/dL HDL Cholesterol 31(L) >40 mg/dL [facility] Comment:Desirable HDL: great er than 40 mg/dL Note: This HDL assay may give artificially low results in patients with liver disease. Blood Venous blood specimen / Unknown 12/08/2023 11:04 AM EDT 12/08/2023 1:40 PM EDT Raya Jurcsak DO LAB BLOOD ORDERABLES Final R esult [facility] [address] [place] [phone] * (ABNORMAL) Diabetes Eye Exam (12/10/2021) [...] HPV mRNA E6/E7 Not Detected NOT DETECTED [facility] Comment: This test was performed using the APTIMA(R) HPV Assay ([employer] This assay detects E6/E7 viral messenger RNA (mRNA) from 14 high-risk HPV types (16,18,31,33,35,39,45,51, 52,56,58,59,66,68). For additional information please refer to: http://education.WePay.Nordicplan/faq/OOM817b4 (This link is being provided for informational/ educational purposes only.) Test Performed by [employer], [employer] [facility], [address] [place] [address] Samy Clemens M.D., Ph.D., Director of Laboratories , [place] [id number] Please note: Effective 12/09/2015, HPV testing will be performed using [employer]'s APTIMA test which targets mRNA. Detecting mRNA instead of DNA, as in older methods, offers significant improvements in specificity. 07/29/2016 10:1 0 AM EDT us Shayy Hughes CNM HISTORICAL/NON ORDERABLE LABS Final Result [facility] [address] from Last 3 Months or Most Recently Relevant to Health Maintenance Additional Health Concerns Active Problems Noted Date Diagnosed Date Help patients manage their type 2 diabetes 02/13 Weekly blood pressure task 02/13/2025 Help patients manage their type 2 diabetes 02/13 Patient has diabetic eye disease 02/13/2025 Help patients manage their type 2 diabetes 02/13 Patient has chronic kidney disease 02/13/2025 Weekly blood pressure task 02/13/2025 Weekly blood pressure task 02/13/2025 Patient has diabetic eye disease 02/13/2025 Patient has diabetic eye disease 02/13/2025 Patient has chronic kidney disease 02/13/2025 Patient has chronic kidney disease 02/13/2025 Weekly blood pressure task 02/16/2025 Weekly blood pressure task 02/16/2025 Weekly blood pressure task 02/16/2025 Patient has diabetic eye disease 02/16/2025 Patient has diabetic eye disease 02/16/2025 Patient has diabetic eye disease 02/16/2025 Patient has chronic kidney disease 02/16/2025 Patient has chronic kidney disease 02/16/2025 Patient has chronic kidney disease 02/16/2025 Weekly blood pressure task 02/26/2025 Weekly blood pressure task 02/26/2025 Weekly blood pressure task 02/26/2025 Patient has diabetic eye disease 02/26/2025 Patient has diabetic eye disease 02/26/2025 Patient has diabetic eye disease 02/26/2025 Patient has chronic kidney disease 02/26/2025 Patient has chronic kidney disease 02/26/2025 Patient has chronic kidney disease 02/26/2025 Weekly blood pressure task 02/27/2025 Weekly blood pressure task 02/27/2025 Weekly blood pressure task 02/27/2025 Patient has diabetic eye disease 02/27/2025 Patient has diabetic eye disease 02/27/2025 Patient has diabetic eye disease 02/27/2025 Patient has chronic kidney disease 02/27/2025 Patient has chronic kidney disease 02/27/2025 Patient has chronic kidney disease 02/27/2025 Weekly blood pressure task 02/27/2025 Weekly blood pressure task 02/27/2025 Weekly blood pressure task 02/27/2025 Patient has diabetic eye disease 02/27/2025 Patient has diabetic eye disease 02/27/2025 Patient has diabetic eye disease 02/27/2025 Patient has chronic kidney disease 02/27/2025 Patient has chronic kidney disease 02/27/2025 Patient has chronic kidney disease 02/27/2025 Weekly blood pressure task 03/16/2025 Weekly blood pressure task 03/16/2025 Weekly blood pressure task 03/16/2025 Patient has diabetic eye disease 03/16/2025 Patient has diabetic eye disease 03/16/2025 Patient has diabetic eye disease 03/16/2025 Patient has chronic kidney disease 03/16/2025 Patient has chronic kidney disease 03/16/2025 Patient has chronic kidney disease 03/16/[address] [address] [place] [id number] [facility] Care Teams Filter Press Operator Relationship Specialty Start Date End Date Cara Carlin MD [address] [place] [address] PCP - General Family Medicine 02/13/16 Presley Joe, ShayneD [address] [place] [address] Pharmacist Internal Medicine 04/15/23
--- OUTSIDE RECORDS SUMMARY | 2025-03-24 08:49 | XMS_ITS | Clinical Summary ---
Author Organization [facility] ity Address [address] [place] [address] Care Team Providers Care Civil Engineering Draftsperson Name Role Phone Unavailable Primary Care Provider [...] DTaP,Tdap,and Td Vaccines (1 - Tdap) 01/28/1984 Cervical Cancer Screening: P ap Smear 1986 Pneumococcal Vaccine: 50+ Ye ars (1 of 1 - PCV) 2015 Zoster Vaccines (1 of 2) 2015 Depression Screening 03/29/2024 COVID-19 Vaccine (1 - 2024-2 6 season) 2024 Influenza Vaccine (#1) 2024 RSV Immunization Adult Patie nts (1 [...]
--- NOTE | 2025-03-24 08:56 | ED_ITS ---
HPI - General Adult General Chief complaint: Upper Respiratory Symptoms Stated complaint: flu like symptoms Time Seen by Provider: 03/24/25 08:45 Source: patient and family Mode of arrival: ambulatory Limitations: no limitations History of Present Illness ED Provider: ADITYA Pitts HPI narrative: Subjective Chief Complaint: ?Cough, congestion, body aches/pains, and chest discomfort with coughing.? History of Present Illness: RP is a 60-year-old female with a past medical history of hemorrhagic stroke (subarachnoid hemorrhage), uncontrolled diabetes mellitus, hyperlipidemia, and hypertension who presents with approximately one week of cough, nasal congestion, body aches, and chest discomfort that occurs only while coughing. She reports production of yellow/green sputum and states the cough has been worsening. Overall, symptoms have remained about the same without noticeable improvement. She denies any specific worsening beyond the cough but notes continued discomfort with each coughing episode. Related Data Home Medications ?Medication ?Instructions ?Recorded ?Confirmed hydrochlorothiazide 25 mg tablet 1 tab PO DAILY 01/13/20 metformin 1,000 mg tablet 1 tab PO BID 01/13/20 amlodipine 5 mg tablet 5 mg PO QAM 03/28/20 aspirin 325 mg tablet,delayed 325 mg PO BEDTIME release blood sugar diagnostic #10 ea 03/28/20 ergocalciferol (vitamin D2) 1,250 1,250 mcg PO QWEEK 1 mcg (50,000 unit) capsule insulin aspart U-100 100 unit/mL unit subcut 03/28/20 (3 mL) subcutaneous pen insulin glargine 100 unit/mL (3 35 unit subcut DAILY 1 mL) subcutaneous pen lancets 33 gauge #100 ea 03/28/20 losartan 50 mg tablet 50 mg PO DAILY 03/28/20 pen needle, diabetic 32 gauge x #50 ea 03/28/20 Previous Rx's ?Medication ?Instructions ?Recorded atorvastatin 80 mg tablet 80 mg PO DAILY #30 tabs 12/28 cefuroxime axetil 250 mg tablet 250 mg PO BID 7 days # 14 tabs 08/09/22 pantoprazole 40 mg tablet,delayed 40 mg PO DAILY #30 t abs 08/09/22 release (Protonix) sucralfate 1 gram tablet 1 g PO BID #60 tabs 08/09/22 lidocaine 5 % topical patch 1 patch topical DAILY #15 ea 11/26/22 (Lidoderm) cephalexin 500 mg capsule 500 mg PO TID UTI 7 days #21 caps 10/09/23 omeprazole 40 mg capsule,delayed 40 mg PO DAILY #14 ca ps 10/16/23 release ondansetron 4 mg disintegrating 4 mg PO Q6H PRN nausea and 10/16/23 tablet vomiting #15 tabs albuterol sulfate 90 mcg/actuation 2 inh inhalation Q4 -6H PRN 03/24/25 breath activated powder inhaler shortness of breath or wheezing #1 ea benzonatate 100 mg capsule 100 mg PO BID PRN cough #20 caps 03/24/25 doxycycline hyclate 100 mg capsule 100 mg PO BID 10 da ys #20 caps 03/24/25 Allergies Allergy/AdvReac Type Severity Reaction Status Date / Time No Known Allergies Allergy Mild NOT Verified 03/24/25 07:40 APPLICABLE Review of Systems Review of Systems: Review of Systems: ? General: Negative for fever, chills, weight loss. ? Skin: Negative for rash, lesions, or pruritus. ? HEENT: Positive for nasal congestion; negative for sore throat, ear pain, visual changes. ? Cardiovascular: Negative for chest pain (except with cough), palpitations, edema. ? Respiratory: Positive for cough producing yellow/green sputum, chest discomfort with cough, shortness of breath; negative for hemoptysis. ? Gastrointestinal: Negative for nausea, vomiting, diarrhea, abdominal pain. ? Genitourinary: Negative for dysuria, hematuria, frequency, urgency. ? Musculoskeletal: Positive for body aches/pains; negative for joint swelling or redness. ? Neurological: Negative for headache, dizziness, weakness, numbness, syncope. ? Psychiatric: Negative for anxiety, depression, suicidal ideation. ? Endocrine: Negative for polyuria, polydipsia, heat/cold intolerance. ? Hematologic/Lymphatic: Negative for easy bruising, bleeding, lymphadenopathy. Yes all other systems are reviewed and are negative PMFSH Past Medical History Attestation statement: The following information was validated with the patient. 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 Skin: No rashes, lesions, or cyanosis. HEENT: Normocephalic, atraumatic; oropharynx clear, no tonsillar exudate; nasal mucosa congested; tympanic membranes normal. Respiratory: Bibasilar crackles and slight wheeze on auscultation; cough noted during exam, producing yellow/green sputum; no use of accessory muscles. Cardiovascular: Regular rate and rhythm; no murmurs, rubs, or gallops; chest discomfort reported when coughing. Gastrointestinal: Abdomen soft, non-tender, no distension, normal bowel sounds. Genitourinary: No suprapubic or costovertebral angle tenderness. Musculoskeletal: No joint swelling, redness, or deformity; normal range of motion. Neurological: Alert and oriented x3; no focal deficits. Psychiatric: Appropriate mood and affect. Hematologic/Lymphatic: No lymphadenopathy, no bruising or petechiae. Vital Signs: Vital Signs - 24 hr 03/24/25 07:39 Temperature 97.2 F Pulse Rate 94 Respiratory Rate 18 Blood Pressure 152/65 H Pulse Oximetry 98 Oxygen Delivery Method Room Air BMI result Body Mass Index 26.6 vss Course Reevaluation(s) Reevaluation #1: X-ray unremarkable. Patient was given chart this 4 pumps of albuterol equivalent to 1 neb. Patient feeling well will discharge with albuterol, benzonatate and doxycycline. Educated patient on diagnosis and treatment plan, answered all question, patient verbalizes understanding. At this time patient will be discharged home, advised to return with new or worsening symptoms. Educated on worrisome signs and symptoms and when to return. At this time I feel comfortable discharge home. Time: 09:22 Medical Decision Making Medical Decision Making MDM Narrative: Assessment & Plan 60-year-old female with significant comorbidities (uncontrolled diabetes mellitus, hypertension, hyperlipidemia, history of hemorrhagic stroke) presenting with productive cough, congestion, and chest discomfort with cough. Exam notable for bibasilar crackles and wheeze. Clinical picture most consistent with community-acquired pneumonia. Problem #1: Suspected Community-Acquired Pneumonia Assessment: Worsening productive cough with yellow/green sputum, bibasilar crackles, wheeze, and chest discomfort during cough in the setting of diabetes and other comorbidities. Patient is at increased risk for complications due to underlying chronic conditions. Medical Decision-Making Complexity: High. The decision to withhold systemic corticosteroids (prednisone) was made due to the patient's uncontrolled diabetes mellitus, as steroids can worsen glycemic control and increase risk of infection and other complications. The presence of multiple comorbidities (diabetes, hypertension, hyperlipidemia, prior stroke) increases risk for adverse outcomes and was factored into the management plan. Outpatient management was chosen as the patient is hemodynamically stable, oxygenating well, and able to follow up, with clear return precautions provided. The plan includes symptomatic management and close monitoring for deterioration. Plan: * Prednisone considered but withheld due to uncontrolled diabetes and risk of h yperglycemia. * Prescribe benzonatate pearls for cough suppression. * Provide albuterol inhaler for shortness of breath and wheeze. * Discharge home with instructions to return to the ED or seek medical care for any new or worsening symptoms, including increased shortness of breath, chest pain, confusion, or inability to tolerate oral intake. Problem #2: Uncontrolled Diabetes Mellitus (Comorbidity) Assessment: Chronic condition noted; relevant today for decision to withhold systemic steroids. Patient advised to closely monitor blood glucose and follow up with primary care for ongoing management. Plan: * Continue home diabetes regimen; monitor blood glucose closely. * Follow up with primary care provider for diabetes management. Problem #3: Hypertension and Hyperlipidemia (Comorbidities) Assessment: Chronic conditions; increase risk for complications from infection. Plan: * Continue home antihypertensive and lipid-lowering medications. * Monitor for signs of cardiovascular complications. Counseling & Time Spent: Patient and family were counseled extensively regarding diagnosis, management plan, medication risks/benefits, and warning signs requiring return to care. Total time spent [id number] with patient and family: 35 minutes. Differential Diagnosis Differential Diagnoses: The differential diagnosis associated with the presentation includes Differential Diagnosis * Acute Bronchitis: Considered due to productive cough and congestion. However, the presence of bibasilar crackles and wheeze, along with chest discomfort during cough and unwell appearance, raises concern for a more serious lower respiratory tract infection. * Viral Upper Respiratory Infection (URI): Possible given nasal congestion and body aches, but the worsening productive cough with yellow/green sputum and abnormal lung exam findings make viral URI less likely as the sole diagnosis. * Heart Failure Exacerbation: Considered due to comorbidities (hypertension, diabetes), but absence of peripheral edema, orthopnea, or paroxysmal nocturnal dyspnea, and the presence of productive sputum and localized crackles, make this less likely. * COPD Exacerbation: Wheeze and crackles could suggest COPD, but no prior history of COPD or chronic respiratory symptoms is documented. The acute nature and productive cough point toward infection. * Pulmonary Embolism: Considered due to chest discomfort and risk factors (history of stroke, immobility), but lack of pleuritic chest pain, hemoptysis, tachycardia, or hypoxia, and the presence of infectious symptoms, make PE less likely. * COVID-19: Considered due to ongoing pandemic and respiratory symptoms. However, the clinical presentation with purulent sputum and bibasilar crackles is more consistent with bacterial pneumonia; COVID-19 cannot be fully excluded without testing. Based on the above, the clinical picture is most consistent with community- acquired pneumonia. Admission/Observation Consideration of admission/observation: Escalation of care including admission/observation considered Lab Data MDM Lab Attestation statement: I reviewed the patient's lab results. Labs: Lab Results 03/24/25 Range/Units 07:48 Influenza Type A (PCR) POSITIVE A (Negative) Influenza Type B (PCR) NEGATIVE (Negative) RSV RNA Qual (PCR) NEGATIVE (Negative) SARS-CoV-2 RNA (RT-PCR) NEGATIVE (Negative) Independent Interpretation I performed an independent interpretation of an: Plain X-Ray (Findings: The lungs are adequately expanded. No focal consolidation. No effusion or pneumothorax. Cardiac and mediastinal contours are within normal limits. No acute osseous abnormality Impression: No acute process.) Radiology Impression Discussion of test interpretation with radiology: I have reviewed the radiologist's reading. 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 Or preforming a procedure Discharge Plan Discharge Clinical Impression: Influenza, Pneumonia Patient Disposition: Home, Self-Care Instructions: Influenza (ED) Additional Instructions: Take your medications as prescribed. If you were prescribed antibiotics today, it is important that you take your medication to their entirety, do not skip any doses, do not finish them early. Follow-up with your primary care provider this week. Return to the emergency department with new or worsening symptoms. Such as fevers, chills, chest pain, shortness of breath, nausea, vomiting, dizziness, headache, vision changes, lethargy In case of emergency call 911 Prescriptions: New doxycycline hyclate 100 mg capsule 100 mg PO BID 10 Days Qty: 20 0RF benzonatate 100 mg capsule 100 mg PO BID PRN (Reason: cough) Qty: 20 0RF albuterol sulfate 90 mcg/actuation aerosol powdr breath activated 2 inh inhalation Q4-6H PRN (Reason: shortness of breath or wheezing) Qty: 1 0RF No Action metformin 1,000 mg tablet 1 tab PO BID hydrochlorothiazide 25 mg tablet 1 tab PO DAILY atorvastatin 80 mg Tablet 80 mg PO DAILY Qty: 30 0RF cephalexin 500 mg capsule 500 mg PO TID 7 Days Qty: 21 0RF pantoprazole [Protonix] 40 mg tablet,delayed release (DR/EC) 40 mg PO DAILY Qty: 30 0RF sucralfate 1 gram tablet 1 g PO BID Qty: 60 0RF cefuroxime axetil 250 mg tablet 250 mg PO BID 7 Days Qty: 14 0RF lidocaine [Lidoderm] 5 % adhesive patch,medicated 1 patch topical DAILY Qty: 15 0RF Rx Instructions: leave on most painful area for up to 12 hrs omeprazole 40 mg capsule,delayed release(DR/EC) 40 mg PO DAILY Qty: 14 0RF ondansetron 4 mg tablet,disintegrating 4 mg PO Q6H PRN (Reason: nausea and vomiting) Qty: 15 0RF aspirin 325 mg tablet,delayed release (DR/EC) 325 mg PO BEDTIME ergocalciferol (vitamin D2) 1,250 mcg (50,000 unit) capsule 1,250 mcg PO QWEEK amlodipine 5 mg tablet 5 mg PO QAM losartan 50 mg tablet 50 mg PO DAILY Soren Alfonso U-100 Insulin 100 unit/mL (3 mL) insulin pen 35 unit subcut DAILY (DME) lancets 33 gauge misc See Rx Instructions Not Applicable TID Qty: 100 Rx Instructions: As directed (DME) pen needle, diabetic 32 gauge x 5/32 needle See Rx Instructions subcut DIRECTED Qty: 50 Rx Instructions: As directed insulin aspart U-100 100 unit/mL (3 mL) insulin pen subcut (DME) OneTouch Ultra Blue Test Strip Strip See Rx Instructions Not Applicable TID Qty: 10 Rx Instructions: As directed Referrals: Cara Carlin MD [Primary Care Provider, Internal Medicine] Print Language: Kinyarwanda
[2025-03-24 09:26] VITALS: BP 131/83; PULSE 93; RESP 16; O2SAT 97
[2025-03-24 09:57] VITALS: PULSE 92; RESP 18; O2SAT 95
[2025-03-24] MEDS: Albuterol Sulfate 90 MCG 8 GM INHALER 4 PUFF INHALE (09:57)
[2025-03-24 09:59] VITALS: BP 131/83; PULSE 92; RESP 18; TEMP -17.7; TEMP 0; O2SAT 97
== END 2025-03-24 10:00 | disposition home or self-care (01) ==
PROVIDERS: Emergency Provider Emergency Medicine; PCP Internal Medicine
DX: J10.1 Influenza due to other identified influenza virus with other respiratory manifestations (principal); R05.9 Cough, unspecified; E11.9 Type 2 diabetes mellitus without complications; I10 Essential (primary) hypertension; J18.9 Pneumonia, unspecified organism; Z79.02 Long term (current) use of antithrombotics/antiplatelets; Z79.82 Long term (current) use of aspirin; Z79.899 Other long term (current) drug therapy; Z03.818 Encounter for observation for suspected exposure to other biological agents ruled out
CPT/HCPCS: 71046; 87637; 94640; 99284

== ENCOUNTER → 2025-03-24 08:20 | Outpatient (BNV) | payer MEDICARE, MEDICAID, SELFPAY | PROVIDERS: Emergency Provider Emergency Medicine; PCP Internal Medicine; Visit Provider Radiology Vascular & Interventional Radiology | DX: R09.81 Nasal congestion (principal) | CPT/HCPCS: 71046 ==